=== PATIENT | male | born 1960 | race Caucasian/White ===

== ENCOUNTER 2016-06-12 16:05 | Inpatient (IN) | payer OTHER ==
[2016-06-12 17:24] VITALS: BMI 28.7
--- NOTE | 2016-06-12 20:03 | HP ---
CIWA Score - CIWA Score Nausea/Vomitin-Mild Nausea/No Vomiting Muscle Tremors: 4-Moderate,w/Arms Extend Anxiety: 4-Mod. Anxious/Guarded Agitation: 4-Moderately Restless Paroxysmal Sweats: 1-Minimal Palms Moist Orientation: 3-Disoriented Date>2 days Tacttile Disturbances: 0-None Auditory Disturbances: 0-None Visual Disturbances: 0-None Headache: 0-None Present CIWA-Ar Total Score: 17 Admission ROS S - HPI Chief Complaint: WITHDRAWAL SX Allergies/Adverse Reactions: Allergies Allergy/AdvReac Type Severity Reaction Status Date / Time No Known Allergies Allergy Verified 06/12/16 20:56 History of Present Illness: 56 YEARS OLD MALE WITH LONG HISTORY OF ALCOHOL NICOTINE DEPENDENCE, HAS HYPERTENSION, AMBULATE WITH CANE OWN SHOE FRO FALL AGE 5 AND BIPOLAR II IS ADMITTED TO DETOX Exam Limitations: No Limitations - Ebola screening Have you traveled outside of the country in the last 21 days: No Have you had contact with anyone from an Ebola affected area: No Have you been sick,other than usual withdrawal symptoms: No Do you have a fever: No - Review of Systems Constitutional: Chills, Changes in sleep, Weight Stable EENT: reports: No Symptoms Reported, Other (EYE GLASSES) Respiratory: reports: No Symptoms reported Cardiac: reports: No Symptoms Reported GI: reports: Nausea, Poor Fluid Intake, Abdominal cramping : reports: No Symptoms Reported Musculoskeletal: reports: Back Pain, Joint Pain (RIGHT HIP) Integumentary: reports: No Symptoms Reported Neuro: reports: Tremors Endocrine: reports: No Symptoms Reported Hematology: reports: No Symptoms Reported Psychiatric: reports: Judgement Intact Other Systems: Reviewed and Negative Patient History - Patient Medical History Hx Anemia: No Hx Asthma: No Hx Chronic Obstructive Pulmonary Disease (COPD): No Hx Cancer: No Hx Cardiac Disorders: No Hx Congestive Heart Failure: No Hx Hypertension: Yes (on meds.) Hx Hypercholesterolemia: No Hx Pacemaker: No HX Cerebrovascular Accident: No Hx Seizures: No Hx Dementia: No Hx Diabetes: No Hx Gastrointestinal Disorders: No Hx Liver Disease: Yes Hx Genitourinary Disorders: No Hx Sexually Transmitted Disorders: No Hx Renal Disease (ESRD): No Hx Thyroid Disease: No Hx Human Immunodeficiency Virus (HIV): No (negative a yr ago) Hx Hepatitis C: Yes (NEEDS TREATMENT) Hx Depression: No (not medcited at present ) Hx Suicide Attempt: No Hx Bipolar Disorder: Yes Hx Schizophrenia: No - Patient Surgical History Past Surgical History: Yes Hx Neurologic Surgery: No Hx Cataract Extraction: No Hx Cardiac Surgery: No Hx Lung Surgery: No Hx Breast Surgery: No Hx Breast Biopsy: No Hx Abdominal Surgery: No Hx Appendectomy: No Hx Cholecystectomy: No Hx Genitourinary Surgery: No Hx Orthopedic Surgery: Yes (right hip at age 5/left knee at age 7) Other Surgical History: cyst removed from right knee at age 16 Anesthesia Reaction: No - PPD History Previous Implant?: Yes Documented Results: Negative w/proof Implanted On Prior [facility] Admission?: Yes Date: 10/04/14 Results: 0 MM PPD to be Administered?: Yes - Smoking Cessation Smoking history: Current every day smoker Have you smoked in the past 12 months: Yes Aproximately how many cigarettes per day: 6 Cigars Per Day: 0 Hx Chewing Tobacco Use: No Initiated information on smoking cessation: Yes 'Breaking Loose' booklet given: 06/12/16 - Substance & Tx. History Hx Alcohol Use: Yes Hx Substance Use: Yes Substance Use Type: Alcohol, Heroin Hx Substance Use Treatment: Yes - Substances Abused Alcohol Route: Oral Frequency: Daily Amount used: 40OZX3 BEER Age of first use: 24 Date of Last Use: 06/12/16 Family Disease History - Family Disease History Family Disease History: Other: Father (COCAINE AND ALCOHOL), Mother (ALCOHOL) Admission Physical Exam [facility] - Vital Signs Vital Signs: Vital Signs - 24 hr 06/12/16 17:22 Temperature 98.1 F Pulse Rate 79 Respiratory 20 Rate Blood Pressure 142/86 - Physical General Appearance: Yes: Nourished, Appropriately Dressed, Mild Distress, Alcohol on Breath, Tremorous, Irritable, Sweating, Anxious HEENTM: Yes: Hearing grossly Normal, Normal ENT Inspection, Normocephalic, Normal Voice Respiratory: Yes: Chest Non-Tender, Lungs Clear, Normal Breath Sounds, No Respiratory Distress, No Accessory Muscle Use Neck: Yes: Supple, Trachea in good position Breast: Yes: Breasts Symetrical Cardiology: Yes: Regular Rhythm, Regular Rate, S1, S2 Abdominal: Yes: Non Tender, Soft Genitourinary: Yes: Within Normal Limits Back: Yes: Normal Inspection Musculoskeletal: Yes: Gait Steady (CANE), Back pain, Muscle Pain (RIGHT HIP) Extremities: Yes: Normal Range of Motion, Non-Tender, Tremors Neurological: Yes: Alert, Normal Response, Depressed Affect Integumentary: Yes: Warm, Clammy Lymphatic: Yes: Within Normal Limits - Diagnostic (1) Alcohol dependence with withdrawal, uncomplicated Current Visit: Yes Status: Acute (2) Essential hypertension Current Visit: Yes Status: Acute (3) Hepatitis C Current Visit: Yes Status: Chronic Qualifiers: Viral hepatitis chronicity: chronic Hepatic coma status: without hepatic coma Qualified Code(s): B18.2 - Chronic viral hepatitis C Comment: SCHEDULED FOR TREATMENT (4) Nicotine dependence Current Visit: Yes Status: Acute Qualifiers: Nicotine product type: cigarettes Substance use status: in withdrawal Qualified Code(s): F17.213 - Nicotine dependence, cigarettes, with withdrawal (5) Umbilical hernia Current Visit: Yes Status: Chronic Comment: SCHEDULED FOR SURGICAL REPAIR (6) Bipolar II disorder Current Visit: Yes Status: Acute (7) Use of cane as ambulatory aid Current Visit: Yes Status: Chronic Comment: RIGHT HIP INJURY (8) Methadone maintenance therapy patient Current Visit: Yes Status: Acute Comment: 20 MG VERIFICATION PENDING Cleared for Admission [facility] - Detox or Rehab [facility] Level of Care: Medically Managed Detox Regimen/Protocol: Librium [facility] Breath Alcohol Content Breath Alcohol Content: 0.088 Urine Drug Screen - Results Drug Screen Negative: No Urine Drug Screen Results: BZO-Benzodiazepines, MTD-Methadone
[2016-06-12] MEDS ORDERED: LOPERAMIDE HCL 2 MG CAPSULE PO PRN (20:07)
[2016-06-12] MEDS ORDERED: MAGNESIUM HYDROX 2400MG/30ML ORAL SUSPENSION 30 ML CUP PO PRN (20:07)
[2016-06-12] MEDS ORDERED: MAGNESIUM CITRATE 300 ML BOTTLE PO PRN (20:07)
[2016-06-12] MEDS ORDERED: MENTHOL/PHENOL 1 EACH UD MM PRN (20:07)
[2016-06-12] MEDS ORDERED: chlordiazePOXIDE HCL 25 MG CAPSULE PO PRN (20:07)
[2016-06-12] MEDS ORDERED: guaiFENesin/D-METHORPHAN HB 10 ML UNIT-DOSE CUPS PO PRN (20:07)
[2016-06-12] MEDS ORDERED: MAG HYDROX/AL HYDROX/SIMETH 30 ML UNIT-DOSE CUP PO PRN (20:07)
[2016-06-12] MEDS ORDERED: P-EPHED 60MG/TRIPROLIDI 2.5MG TABLET PO PRN (20:07)
[2016-06-12] MEDS ORDERED: NICOTINE POLACRILEX 2 MG GUM BUC PRN (20:07)
[2016-06-12 22:28] LABS: URINE APPEARANCE CLEAR; URINE BILIRUBIN NEGATIVE (NEGATIVE); URINE BLOOD NEGATIVE (NEGATIVE); URINE COLOR YELLOW; URINE GLUCOSE (UA) NEGATIVE (NEGATIVE); URINE KETONE NEGATIVE (NEGATIVE); URINE LEUK ESTERASE NEGATIVE (NEGATIVE); URINE NITRITE NEGATIVE (NEGATIVE); URINE PROTEIN NEGATIVE (NEGATIVE); URINE UROBILINOGEN 2.0 E.U/dl E.U./dl (0.2-1.0)
[2016-06-12] MEDS: THIAMINE HCL 100 MG TABLET (FP) PO SCH (22:48)
[2016-06-12] MEDS: chlordiazePOXIDE HCL 25 MG CAPSULE PO SCH (22:48)
[2016-06-12] MEDS: diphenhydrAMINE HCL 50 MG CAPSULE PO PRN (22:49)
[2016-06-13] MEDS: chlordiazePOXIDE HCL 25 MG CAPSULE PO SCH ×4 (06:17→22:55)
[2016-06-13] MEDS ORDERED: METHADONE HCL 10 MG TABLET PO ONE (08:38)
[2016-06-13 10:00] LABS: MCH 32.8 pg (25.7-33.7); MCHC 33.8 g/dl (32.0-35.9); MEAN CELL VOLUME 96.8 fl (80-96); RDW 15.1 % (11.9-15.9)
[2016-06-13 10:09] LABS: PLATELET COUNT 23 K/MM3 (134-434); WHITE BLOOD COUNT 1.8 K/mm3 (4.0-10.0)
[2016-06-13 10:16] LABS: ALBUMIN 2.5 g/dl (3.4-5.0); ANION GAP 7 (8-16); BILIRUBIN,TOTAL 1.8 mg/dL (0.2-1.0); CALCIUM 7.9 mg/dL (8.5-10.1); CO2 28 mmol/L (21-32); GLUCOSE,RANDOM 106 mg/dL (74-106); SGOT/AST 81 U/L (15-37); SGPT/ALT 63 U/L (12-78); TOT PROT 5.5 g/dl (6.4-8.2)
[2016-06-13 10:18] LABS: ALK PHOS 119 U/L (45-117); COCKROFT - GAULT 132.96; CREATININE 0.7 mg/dL (0.7-1.3)
[2016-06-13] MEDS: ASPIRIN 81 MG CHEWABLE TABLETS PO SCH (10:49)
[2016-06-13] MEDS: HYDROCHLOROTHIAZIDE 25 MG TABLET (FP) PO SCH (10:49)
[2016-06-13] MEDS: PRENATAL VITAMINS W/ FOLIC ACID TABLET (FP) PO SCH (10:49)
[2016-06-13] MEDS: NICOTINE 14 MG/24 HOURS TOPICAL PATCH TD SCH (10:50)
[2016-06-13] MEDS: PROPRANOLOL HCL 20 MG TABLET PO SCH (10:50)
--- NOTE | 2016-06-13 11:25 | PN ---
[facility] CIWA - CIWA Score Nausea/Vomitin Muscle Tremors: 3 Anxiety: 3 Agitation: 2 Paroxysmal Sweats: 1-Minimal Palms Moist Orientation: 0-Oriented Tacttile Disturbances: 1-Very Mild Itch/Numbness Auditory Disturbances: 1-Very Mild Visual Disturbances: 1-Very Mild Sensitivity Headache: 2-Mild CIWA-Ar Total Score: 17 BHS Progress Note (SOAP) Subjective: ALERT,IRRITABLE,ANXIOUS,INTERRUPTED SLEEP,TREMOR Objective: 06/13/16 11:20 Vital Signs Temperature 97.7 F 06/13/16 09:54 Pulse Rate 109 H 06/13/16 09:54 Respiratory Rate 16 06/13/16 09:54 Blood Pressure 159/84 06/13/16 09:54 O2 Sat by Pulse Oximetry (%) EKG NSR,NORMAL ECG Laboratory Last Values WBC 1.8 K/mm3 (4.0-10.0) L* D 06/13/16 07:00 RBC 3.59 M/mm3 (4.00-5.60) L 06/13/16 07:00 Hgb 11.8 GM/dL (11.7-16.9) 06/13/16 07:00 Hct 34.8 % (35.4-49) L 06/13/16 07:00 MCV 96.8 fl (80-96) H 06/13/16 07:00 MCHC 33.8 g/dl (32.0-35.9) 06/13/16 07:00 RDW 15.1 % (11.9-15.9) 06/13/16 07:00 Plt Count 23 K/MM3 (134-434) L* D 06/13/16 07:00 MPV 10.0 fl (7.5-11.1) D 06/13/16 07:00 Sodium 145 mmol/L (136-145) 06/13/16 07:00 Potassium 3.7 mmol/L (3.5-5.1) 06/13/16 07:00 Chloride 110 mmol/L (98-107) H 06/13/16 07:00 Carbon Dioxide 28 mmol/L (21-32) 06/13/16 07:00 Anion Gap 7 (8-16) L 06/13/16 07:00 BUN 10 mg/dL (7-18) 06/13/16 07:00 Creatinine 0.7 mg/dL (0.7-1.3) 06/13/16 07:00 Creat Clearance w eGFR > 60 (>60) 06/13/16 07:00 Random Glucose 106 mg/dL (74-106) 06/13/16 07:00 Calcium 7.9 mg/dL (8.5-10.1) L 06/13/16 07:00 Total Bilirubin 1.8 mg/dL (0.2-1.0) H 06/13/16 07:00 AST 81 U/L (15-37) H 06/13/16 07:00 ALT 63 U/L (12-78) 06/13/16 07:00 Alkaline Phosphatase 119 U/L (45-117) H 06/13/16 07:00 Total Protein 5.5 g/dl (6.4-8.2) L 06/13/16 07:00 Albumin 2.5 g/dl (3.4-5.0) L 06/13/16 07:00 Urine Color Yellow 06/12/16 22:04 Urine Appearance Clear 06/12/16 22:04 Urine pH 5.0 (5.0-8.0) 06/12/16 22:04 Ur Specific [place] 1.008 (1.001-1.035) 06/12/16 22:04 Urine Protein Negative (NEGATIVE) 06/12/16 22:04 Urine Glucose (UA) Negative (NEGATIVE) 06/12/16 22:04 Urine Ketones Negative (NEGATIVE) 06/12/16 22:04 Urine Blood Negative (NEGATIVE) 06/12/16 22:04 Urine Nitrite Negative (NEGATIVE) 06/12/16 22:04 Urine Bilirubin Negative (NEGATIVE) 06/12/16 22:04 Urine Urobilinogen 2.0 e.u/dl E.U./dl (0.2-1.0) 06/12/16 22:04 Ur Leukocyte Esterase Negative (NEGATIVE) 06/12/16 22:04 Valproic Acid 7.921 ug/ml (50-100) L 06/13/16 07:00 Assessment: 06/13/16 11:25 WITHDRAWAL SYMPTOM Plan: CONTINUE DETOX,WBC IS 1,800,PLATELET COUNT IS 28K,LEUKOPENIA AND THROMBOCYTOPENIA REPEAT CBC,CMP,INR IN AM,D/C MOTRIN
--- NOTE | 2016-06-13 15:41 | CONSULT ---
[facility] Psychiatric Consult - Data Date of interview: 06/13/16 Admission source: [facility] Identifying data: First admission to [facility] for this 56 y/o male seeking detox teatment forhroin and alcohol dependence.Patient is single,a father of two,domiciled,unemployed (disabled) and supported on SSI benefits. Substance Abuse History: - Smoking Cessation. Smoking history: Current every day smoker. Have you smoked in the past 12 months: Yes. Aproximately how many cigarettes per day: 6. Cigars Per Day: 0. Hx Chewing Tobacco Use: No. Initiated information on smoking cessation: Yes. 'Breaking Loose' booklet given : 06/12/16. - Substance & Tx. History. Hx Alcohol Use: Yes. Hx Substance Use : Yes. Substance Use Type: Alcohol, Heroin. Hx Substance Use Treatment: Yes. - Substances Abused. Alcohol. Route: Oral. Frequency: Daily. Amount used : 40OZX3 BEER. Age of first use: 24. Date of Last Use: 06/12/16. Confirmed by the patient. Medical History: Thrombocytopenia (platelets = 23 on 06/13/16),leukopenia (WBC = 1.8 on 06/13/16),hepatitis C,hypertension,arthritis,hip pain,right inguinal hernia ,umbilical hernia and a distant history of orthosurgery (right hip at age [age]) and left knee (age [age]). Psychiatric History: No reported history of psychiatric hospitalizations.Diagnosed with Impulse Control Disorder.Used to be on risperdal and sertraline.Now prescribed depakote 250 mg po bid (pharmacy claims are reviewed).OPD care is received at the [facility] mental health clinic.Mr Conway is also on methadone maintenance (20 mg/day) at the [facility] in [facility].Patient denies history of suicide attempts. Physical/Sexual Abuse/Trauma History: Patient denies. Additional Comment: Urine Drug Screen Results: BZO-Benzodiazepines, MTD- Methadone.Noted. Mental Status Exam - Mental Status Exam Alert and Oriented to: Time, Place, Person Cognitive Function: Good Patient Appearance: Well Groomed (short stature) Mood: Nervous, Apprehensive, Hopeful Affect: Mood Congruent Patient Behavior: Fatigued, Appropriate, Cooperative Speech Pattern: Clear, Appropriate Voice Loudness: Normal Thought Process: Goal Oriented Thought Disorder: Not Present Hallucinations: Denies Suicidal Ideation: Denies Homicidal Ideation: Denies Insight/Judgement: Fair Sleep: Fair Appetite: Good Gait/Station: Other (walks with cane) Psychiatric Findings - Problem List ([place] 1, 2,3) (1) Alcohol dependence with withdrawal, uncomplicated Current Visit: Yes Status: Acute (2) Opioid dependence on agonist therapy Current Visit: Yes Status: Acute (3) Nicotine dependence Current Visit: Yes Status: Acute Qualifiers: Nicotine product type: cigarettes Substance use status: in withdrawal Qualified Code(s): F17.213 - Nicotine dependence, cigarettes, with withdrawal (4) Bipolar II disorder Current Visit: Yes Status: Chronic (5) Substance induced mood disorder Current Visit: Yes Status: Acute (6) Impulse control disorder Current Visit: Yes Status: Chronic (7) Essential hypertension Current Visit: Yes Status: Acute (8) Hepatitis C Current Visit: Yes Status: Chronic Qualifiers: Viral hepatitis chronicity: chronic Hepatic coma status: without hepatic coma Qualified Code(s): B18.2 - Chronic viral hepatitis C Comment: SCHEDULED FOR TREATMENT (9) Umbilical hernia Current Visit: Yes Status: Chronic Comment: SCHEDULED FOR SURGICAL REPAIR (10) Use of cane as ambulatory aid Current Visit: Yes Status: Chronic Comment: RIGHT HIP INJURY (11) Arthritis of both knees Current Visit: Yes Status: Chronic (12) Hip pain associated with recalled total hip arthroplasty hardware Current Visit: Yes Status: Chronic - Initial Treatment Plan Initial Treatment Plan: Psychoeducation.Detoxification.Depakote is on hold in view of severe thrombocytopenia.Explained to patient.Observation.
[2016-06-13] MEDS: THIAMINE HCL 100 MG TABLET (FP) PO SCH (22:55)
[2016-06-13] MEDS: risperiDONE 2 MG TABLET PO SCH (22:55)
[2016-06-13] MEDS: ACETAMINOPHEN 325 MG TABLET (FP) PO PRN (22:56)
[2016-06-14] MEDS: chlordiazePOXIDE HCL 25 MG CAPSULE PO SCH ×3 (06:19→17:59)
[2016-06-14] MEDS: METHADONE HCL 10 MG TABLET PO SCH (06:20)
[2016-06-14 10:11] LABS: MCH 32.7 pg (25.7-33.7); MCHC 33.4 g/dl (32.0-35.9)
[2016-06-14 10:24] LABS: INR 1.64 (0.82-1.09); PROTHROMBIN TIME (PATIENT) 18.2 SEC (9.98-11.88)
[2016-06-14 10:35] LABS: ALBUMIN 2.4 g/dl (3.4-5.0); ALK PHOS 113 U/L (45-117); ANION GAP 10 (8-16); BILIRUBIN,TOTAL 1.5 mg/dL (0.2-1.0); CALCIUM 7.7 mg/dL (8.5-10.1); CO2 26 mmol/L (21-32); COCKROFT - GAULT 132.96; CREATININE 0.7 mg/dL (0.7-1.3); GLUCOSE,RANDOM 113 mg/dL (74-106); SGOT/AST 55 U/L (15-37); SGPT/ALT 58 U/L (12-78); TOT PROT 5.4 g/dl (6.4-8.2)
[2016-06-14] MEDS: ASPIRIN 81 MG CHEWABLE TABLETS PO SCH (11:04)
[2016-06-14] MEDS: PRENATAL VITAMINS W/ FOLIC ACID TABLET (FP) PO SCH (11:04)
[2016-06-14] MEDS: SERTRALINE HCL 50 MG TABLET (FP) PO SCH (11:05)
[2016-06-14] MEDS: PROPRANOLOL HCL 20 MG TABLET PO SCH (11:05)
[2016-06-14] MEDS: HYDROCHLOROTHIAZIDE 25 MG TABLET (FP) PO SCH (11:05)
[2016-06-14] MEDS: NICOTINE 14 MG/24 HOURS TOPICAL PATCH TD SCH (11:06)
[2016-06-14 11:08] LABS: PLATELET COUNT 28 K/MM3 (134-434); WHITE BLOOD COUNT 1.8 K/mm3 (4.0-10.0)
--- NOTE | 2016-06-14 15:26 | PN ---
S CIWA - CIWA Score Nausea/Vomitin Muscle Tremors: 3 Anxiety: 4-Mod. Anxious/Guarded Agitation: 2 Paroxysmal Sweats: 2 Orientation: 4Disoriented Place/Person Tacttile Disturbances: 2-Mild Itch/Numbness/Burn Auditory Disturbances: 0-None Visual Disturbances: 0-None Headache: 3-Moderate CIWA-Ar Total Score: 23 BHS Progress Note (SOAP) Subjective: Body Aches, Back Ache, H/A, Nausea, Tremors. Objective: PT. A & O X 1 (DISORIENTED ABOUT DAY/DATE AND ABOUT LOCATION). PT. OBSERVED AMBULATING ON UNIT. 06/14/16 15:28 Vital Signs Temperature 97.1 F L 06/14/16 10:00 Pulse Rate 75 06/14/16 10:00 Respiratory Rate 19 06/14/16 10:00 Blood Pressure 115/68 06/14/16 10:00 O2 Sat by Pulse Oximetry (%) Laboratory Last Values WBC 1.8 K/mm3 (4.0-10.0) L* 06/14/16 08:00 RBC 3.47 M/mm3 (4.00-5.60) L 06/14/16 08:00 Hgb 11.3 GM/dL (11.7-16.9) L 06/14/16 08:00 Hct 33.9 % (35.4-49) L 06/14/16 08:00 MCV 98.0 fl (80-96) H 06/14/16 08:00 MCHC 33.4 g/dl (32.0-35.9) 06/14/16 08:00 RDW 15.0 % (11.9-15.9) 06/14/16 08:00 Plt Count 28 K/MM3 (134-434) L* D 06/14/16 08:00 MPV 10.0 fl (7.5-11.1) 06/14/16 08:00 INR 1.64 (0.82-1.09) H 06/14/16 08:00 Sodium 142 mmol/L (136-145) 06/14/16 08:00 Potassium 3.7 mmol/L (3.5-5.1) 06/14/16 08:00 Chloride 106 mmol/L (98-107) 06/14/16 08:00 Carbon Dioxide 26 mmol/L (21-32) 06/14/16 08:00 Anion Gap 10 (8-16) 06/14/16 08:00 BUN 15 mg/dL (7-18) D 06/14/16 08:00 Creatinine 0.7 mg/dL (0.7-1.3) 06/14/16 08:00 Creat Clearance w eGFR > 60 (>60) 06/14/16 08:00 Random Glucose 113 mg/dL (74-106) H 06/14/16 08:00 Calcium 7.7 mg/dL (8.5-10.1) L 06/14/16 08:00 Total Bilirubin 1.5 mg/dL (0.2-1.0) H 06/14/16 08:00 AST 55 U/L (15-37) H D 06/14/16 08:00 ALT 58 U/L (12-78) 06/14/16 08:00 Alkaline Phosphatase 113 U/L (45-117) 06/14/16 08:00 Total Protein 5.4 g/dl (6.4-8.2) L 06/14/16 08:00 Albumin 2.4 g/dl (3.4-5.0) L 06/14/16 08:00 Urine Color Yellow 06/12/16 22:04 Urine Appearance Clear 06/12/16 22:04 Urine pH 5.0 (5.0-8.0) 06/12/16 22:04 Ur Specific [place] 1.008 (1.001-1.035) 06/12/16 22:04 Urine Protein Negative (NEGATIVE) 06/12/16 22:04 Urine Glucose (UA) Negative (NEGATIVE) 06/12/16 22:04 Urine Ketones Negative (NEGATIVE) 06/12/16 22:04 Urine Blood Negative (NEGATIVE) 06/12/16 22:04 Urine Nitrite Negative (NEGATIVE) 06/12/16 22:04 Urine Bilirubin Negative (NEGATIVE) 06/12/16 22:04 Urine Urobilinogen 2.0 e.u/dl E.U./dl (0.2-1.0) 06/12/16 22:04 Ur Leukocyte Esterase Negative (NEGATIVE) 06/12/16 22:04 Valproic Acid 7.921 ug/ml (50-100) L 06/13/16 07:00 RPR Titer Nonreactive (NONREACTIVE) 06/13/16 07:00 LABS NOTED. PATIENT REPORTS HISTORY OF LOW WBC COUNT AND HISTORY OF EASILY BRUISING, FOR WHICH HE WAS IN THE PROCESS OF PURSUING FURTHER MEDICAL EVALUATION PRIOR TO ADMISSION TO DETOX. PT. DENIES ANY CURRENT BRUISING OR UNUSUAL BLEEDING. NO SIGNS OF INFECTION NOTED. PATIENT NOTES THAT HE WILL FOLLOW-UP WITH MEDICAL PROVIDER FOR FURTHER EVALUATION AFTER DISCHARGE FROM DETOX. 06/14/16 15:33 Assessment: 06/14/16 15:31 WITHDRAWAL SYMPTOMS. Plan: CONTINUE DETOX. ADVISED PATIENT TO FOLLOW-UP WITH INCIDENT ENGINEER FOR GENERAL MEDICAL ASSESSMENT AND FOR ABNORMAL ADMISSION LAB VALUES AFTER DISCHARGE FROM DETOX. PATIENT VERBALIZED UNDERSTANDING OF INSTRUCTIONS / RECOMMENDATIONS.
--- NOTE | 2016-06-14 16:17 | EKG ---
Test Reason : Blood Pressure : / mmHG Vent. Rate : 078 BPM Atrial Rate : 078 BPM P-R Int : 112 ms QRS Dur : 082 ms QT Int : 390 ms P-R-T Axes : -24 037 022 degrees QTc Int : 444 ms NORMAL SINUS RHYTHM NORMAL ECG NO PREVIOUS ECGS AVAILABLE Confirmed by SHANTANU GATES MD ([id number]) on 06/14/2016 4:17:22 PM Referred By: Confirmed By:SHANTANU GATES MD
[2016-06-14] MEDS: THIAMINE HCL 100 MG TABLET (FP) PO SCH (23:25)
[2016-06-14] MEDS: risperiDONE 2 MG TABLET PO SCH (23:25)
[2016-06-14] MEDS: TOLNAFTATE 1% CREAM 15 GM TUBE TP SCH (23:25)
[2016-06-14] MEDS: chlordiazePOXIDE 5 MG CAPSULE PO SCH (23:26)
[2016-06-15] MEDS: METHADONE HCL 10 MG TABLET PO SCH (06:23)
[2016-06-15] MEDS: chlordiazePOXIDE 5 MG CAPSULE PO SCH ×3 (06:23→17:57)
[2016-06-15] MEDS: ACETAMINOPHEN 325 MG TABLET (FP) PO PRN ×3 (07:44→17:57)
[2016-06-15] MEDS: PRENATAL VITAMINS W/ FOLIC ACID TABLET (FP) PO SCH (11:24)
[2016-06-15] MEDS: SERTRALINE HCL 50 MG TABLET (FP) PO SCH (11:24)
[2016-06-15] MEDS: HYDROCHLOROTHIAZIDE 25 MG TABLET (FP) PO SCH (11:24)
[2016-06-15] MEDS: ASPIRIN 81 MG CHEWABLE TABLETS PO SCH (11:24)
[2016-06-15] MEDS: TOLNAFTATE 1% CREAM 15 GM TUBE TP SCH ×2 (11:24→22:49)
[2016-06-15] MEDS: NICOTINE 14 MG/24 HOURS TOPICAL PATCH TD SCH (11:25)
[2016-06-15] MEDS: PROPRANOLOL HCL 20 MG TABLET PO SCH (11:25)
--- NOTE | 2016-06-15 15:26 | PN ---
BHS Progress Note (SOAP) Subjective: Sweating, anxious, interrupted sleep Objective: 06/15/16 15:23 Last Vital Signs Temp Pulse Resp BP Pulse Ox 97.0 F L 99 H 20 122/54 06/15/16 13:58 06/15/16 13:58 06/15/16 13:58 06/15/16 13:58 Laboratory Tests 06/12/16 06/13/16 06/13/16 22:04 07:00 07:00 WBC 1.8 L* D RBC 3.59 L Hgb 11.8 Hct 34.8 L MCV 96.8 H MCHC 33.8 RDW 15.1 Plt Count 23 L* D MPV 10.0 D INR Sodium 145 Potassium 3.7 Chloride 110 H Carbon Dioxide 28 Anion Gap 7 L BUN 10 Creatinine 0.7 Creat Clearance w eGFR > 60 Random Glucose 106 Calcium 7.9 L Total Bilirubin 1.8 H AST 81 H ALT 63 Alkaline Phosphatase 119 H Total Protein 5.5 L Albumin 2.5 L Urine Color Yellow Urine Appearance Clear Urine pH 5.0 Ur Specific [place] 1.008 Urine Protein Negative Urine Glucose (UA) Negative Urine Ketones Negative Urine Blood Negative Urine Nitrite Negative Urine Bilirubin Negative Urine Urobilinogen 2.0 e.u/dl Ur Leukocyte Esterase Negative Valproic Acid RPR Titer 06/13/16 06/13/16 06/14/16 07:00 07:00 08:00 WBC 1.8 L* RBC 3.47 L Hgb 11.3 L Hct 33.9 L MCV 98.0 H MCHC 33.4 RDW 15.0 Plt Count 28 L* D MPV 10.0 INR Sodium Potassium Chloride Carbon Dioxide Anion Gap BUN Creatinine Creat Clearance w eGFR Random Glucose Calcium Total Bilirubin AST ALT Alkaline Phosphatase Total Protein Albumin Urine Color Urine Appearance Urine pH Ur Specific [place] Urine Protein Urine Glucose (UA) Urine Ketones Urine Blood Urine Nitrite Urine Bilirubin Urine Urobilinogen Ur Leukocyte Esterase Valproic Acid 7.921 L RPR Titer Nonreactive 06/14/16 06/14/16 08:00 08:00 WBC RBC Hgb Hct MCV MCHC RDW Plt Count MPV INR 1.64 H Sodium 142 Potassium 3.7 Chloride 106 Carbon Dioxide 26 Anion Gap 10 BUN 15 D Creatinine 0.7 Creat Clearance w eGFR > 60 Random Glucose 113 H Calcium 7.7 L Total Bilirubin 1.5 H AST 55 H D ALT 58 Alkaline Phosphatase 113 Total Protein 5.4 L Albumin 2.4 L Urine Color Urine Appearance Urine pH Ur Specific [place] Urine Protein Urine Glucose (UA) Urine Ketones Urine Blood Urine Nitrite Urine Bilirubin Urine Urobilinogen Ur Leukocyte Esterase Valproic Acid RPR Titer Labs noted: pancytopenia Assessment: 06/15/16 15:24 Withdrawal symptoms Noted with pancytopenia Plan: Continue detox Pancytopenia most likely secondary to hepatitis C: monitor for bruising/bleeding , follow up with PCP post discharge
[2016-06-15] MEDS: chlordiazePOXIDE HCL 10 MG CAPSULE PO SCH (22:49)
[2016-06-15] MEDS: risperiDONE 2 MG TABLET PO SCH (22:49)
[2016-06-15] MEDS: THIAMINE HCL 100 MG TABLET (FP) PO SCH (22:49)
[2016-06-15] MEDS: diphenhydrAMINE HCL 50 MG CAPSULE PO PRN (22:52)
[2016-06-16] MEDS: chlordiazePOXIDE HCL 10 MG CAPSULE PO SCH ×2 (05:30→10:25)
[2016-06-16] MEDS: METHADONE HCL 10 MG TABLET PO SCH (05:30)
--- NOTE | 2016-06-16 09:36 | PN ---
S Progress Note (SOAP) Subjective: ALERT,NO COMPLAINT Objective: 06/16/16 09:34 Vital Signs Temperature 97.4 F L 06/16/16 06:48 Pulse Rate 94 H 06/16/16 06:48 Respiratory Rate 20 06/16/16 06:48 Blood Pressure 111/60 06/16/16 06:48 O2 Sat by Pulse Oximetry (%) Assessment: 06/16/16 09:34 DETOX COMPLETED,NO WITHDRAWAL SYMPTOM Plan: DISCHARGE TODAY,FOLLOW UP WITH AFTER CARE PROGRAM ARRANGEMENT AND PMD FOR MEDICAL PROBLEM LOW WBC,LOW PLATELET,HEPATITIS C
--- NOTE | 2016-06-16 09:38 | DS ---
[facility] Detox Discharge Summary Admission Date: 06/12/16 Discharge Date: 06/16/16 - History Present History: Alcohol Dependence Additional Comments: FOLLOW UP WITH AFTER CARE PROGRAM ARRANGEMENT AND PMD FOR MEDICAL PROBLEM, LEUKOPENIA, THROMBOCYTOPENIA,AND HEPATITIS C Pertinent Past History: ESSENTIAL HYPERTENSION HEPATITIS C NICOTINE DEPENDENCE UMBILICAL HERNIA BIPOLAR 2 DISORDER MMTP LEUKOPENIA THROMBOCYTOPENIA CANE AMBULATORY AID - Physical Exam Results Vital Signs: Vital Signs Temperature 97.4 F L 06/16/16 06:48 Pulse Rate 94 H 06/16/16 06:48 Respiratory Rate 20 06/16/16 06:48 Blood Pressure 111/60 06/16/16 06:48 O2 Sat by Pulse Oximetry (%) Pertinent Admission Physical Exam Findings: WITHDRAWAL SYMPTOM - Treatment Hospital Course: Detox Protocol Followed, Detoxed Safely, Responded well, Discharged Condition Good, Rehab Referral Accepted Patient has Accepted a Rehab Referral to: [facility] - Medication Discharge Medications: Ambulatory Orders Hydrochlorothiazide [Hctz] 25 mg PO DAILY 09/11/11 Aspirin [ASA -] 81 mg PO DAILY 12/18/14 Baclofen 10 mg PO DAILY 12/18/14 Folic Acid - 1 mg PO DAILY 12/18/14 Multivitamins [Tab-A-Vit -] 1 tab PO DAILY 12/18/14 Propranolol HCl [Inderal] 20 mg PO DAILY 12/18/14 Risperidone [Risperdal] 2 mg PO HS 12/18/14 Sertraline HCl [Zoloft -] 50 mg PO DAILY #30 tablet 12/19/14 Ibuprofen [Motrin -] 600 mg PO DAILY 02/08/15 - Diagnosis (1) Alcohol dependence with withdrawal, uncomplicated Current Visit: Yes Status: Acute (2) Essential hypertension Current Visit: Yes Status: Acute (3) Methadone maintenance therapy patient Current Visit: Yes Status: Acute (4) Nicotine dependence Current Visit: Yes Status: Acute Qualifiers: Nicotine product type: cigarettes Substance use status: in withdrawal Qualified Code(s): F17.213 - Nicotine dependence, cigarettes, with withdrawal (5) Opioid dependence on agonist therapy Current Visit: Yes Status: Acute (6) Arthritis of both knees Current Visit: Yes Status: Chronic (7) Bipolar II disorder Current Visit: Yes Status: Chronic (8) Hepatitis C Current Visit: Yes Status: Chronic Qualifiers: Viral hepatitis chronicity: chronic Hepatic coma status: without hepatic coma Qualified Code(s): B18.2 - Chronic viral hepatitis C (9) Use of cane as ambulatory aid Current Visit: Yes Status: Chronic (10) Leukopenia Current Visit: Yes Status: Acute (11) Thrombocytopenia Current Visit: Yes Status: Acute - AMA Did Patient Leave Against Medical Advice: No
[2016-06-16 09:46] VITALS: BP 144/82; PULSE 116; TEMP 96.8
[2016-06-16] MEDS: SERTRALINE HCL 50 MG TABLET (FP) PO SCH (10:22)
[2016-06-16] MEDS: TOLNAFTATE 1% CREAM 15 GM TUBE TP SCH (10:22)
[2016-06-16] MEDS: ASPIRIN 81 MG CHEWABLE TABLETS PO SCH (10:22)
[2016-06-16] MEDS: PRENATAL VITAMINS W/ FOLIC ACID TABLET (FP) PO SCH (10:22)
[2016-06-16] MEDS: NICOTINE 14 MG/24 HOURS TOPICAL PATCH TD SCH (10:23)
[2016-06-16] MEDS: PROPRANOLOL HCL 20 MG TABLET PO SCH (10:23)
[2016-06-16] MEDS: HYDROCHLOROTHIAZIDE 25 MG TABLET (FP) PO SCH (12:34)
== END 2016-06-16 12:49 | disposition other institution (70) | DRG 773 ==
LOC: YASAS 16:05 → Y6N 19:19
PROVIDERS: ADMIT Internal Medicine Addiction Medicine; ATTEND Internal Medicine Addiction Medicine
PROC: HZ2ZZZZ Detoxification Services for Substance Abuse Treatment (ICD-10-PCS; principal; 2016-06-16)
DX: F11.20 Opioid dependence, uncomplicated (principal); F10.20 Alcohol dependence, uncomplicated; F17.210 Nicotine dependence, cigarettes, uncomplicated; F31.81 Bipolar II disorder; F19.24 Other psychoactive substance dependence with psychoactive substance-induced mood disorder; I10 Essential (primary) hypertension; M13.862 Other specified arthritis, left knee; M13.861 Other specified arthritis, right knee; B18.2 Chronic viral hepatitis C; D69.6 Thrombocytopenia, unspecified; R26.2 Difficulty in walking, not elsewhere classified; F63.9 Impulse disorder, unspecified
CPT/HCPCS: 36415; 80053; 80164; 81003; 85027; 85610; 86593; 93005; 93010

== ENCOUNTER 2016-06-16 13:03 | Inpatient (IN) | payer OTHER ==
[2016-06-16] MEDS ORDERED: MAGNESIUM HYDROX 2400MG/30ML ORAL SUSPENSION 30 ML CUP PO PRN ×2 (13:35)
[2016-06-16] MEDS ORDERED: P-EPHED 60MG/TRIPROLIDI 2.5MG TABLET PO PRN ×2 (13:35)
[2016-06-16] MEDS ORDERED: MENTHOL/PHENOL 1 EACH UD MM PRN (13:35)
[2016-06-16] MEDS ORDERED: LOPERAMIDE HCL 2 MG CAPSULE PO PRN ×2 (13:35)
[2016-06-16] MEDS ORDERED: MAGNESIUM CITRATE 300 ML BOTTLE PO PRN ×2 (13:35)
[2016-06-16] MEDS ORDERED: NICOTINE POLACRILEX 4 MG GUM BC PRN (13:35)
[2016-06-16] MEDS ORDERED: MAG HYDROX/AL HYDROX/SIMETH 30 ML UNIT-DOSE CUP PO PRN ×2 (13:35)
[2016-06-16] MEDS ORDERED: ACETAMINOPHEN 325 MG TABLET (FP) PO PRN ×2 (13:35)
[2016-06-16] MEDS ORDERED: guaiFENesin/D-METHORPHAN HB 10 ML UNIT-DOSE CUPS PO PRN (13:35)
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
--- NOTE | 2016-06-16 16:11 | HP ---
[facility] Rehab Assess/Revision - Admission History Admitted to Rehab from: [facility] Date of Admission to Rehab: 06/16/16 - Vital signs Vital Signs: Vital Signs Period Temp Pulse Resp BP Sys/Gutierrez Pulse Ox Last 24 Hr 98 F 84 18 111/66 - Findings Detox History & Physical reviewed: Yes Concur with findings: Yes Comments/Additional Findings: transferred from detox to rehab admission as per protocol
[2016-06-16] MEDS: RANITIDINE HCL 150 MG TABLET (FP) PO SCH (21:24)
[2016-06-16] MEDS: THIAMINE HCL 100 MG TABLET (FP) PO SCH (21:24)
[2016-06-16] MEDS: diphenhydrAMINE HCL 50 MG CAPSULE PO PRN (21:24)
[2016-06-16] MEDS: risperiDONE 1 MG TABLET (FP) PO SCH (21:24)
[2016-06-16] MEDS ORDERED: THIAMINE HCL 100 MG TABLET (FP) PO SCH (22:00)
[2016-06-17] MEDS: METHADONE HCL 10 MG TABLET PO SCH (06:28)
[2016-06-17] MEDS: IBUPROFEN 400 MG TABLET (FP) PO PRN ×2 (07:36→21:24)
[2016-06-17] MEDS: PROPRANOLOL HCL 20 MG TABLET PO SCH (09:37)
[2016-06-17] MEDS: RANITIDINE HCL 150 MG TABLET (FP) PO SCH ×2 (09:37→21:24)
[2016-06-17] MEDS: SERTRALINE HCL 50 MG TABLET (FP) PO SCH (09:37)
[2016-06-17] MEDS: PRENATAL VITAMINS W/ FOLIC ACID TABLET (FP) PO SCH (09:37)
[2016-06-17] MEDS: HYDROCHLOROTHIAZIDE 25 MG TABLET (FP) PO SCH (09:37)
[2016-06-17] MEDS: NICOTINE 14 MG/24 HOURS TOPICAL PATCH TD SCH (09:38)
[2016-06-17] MEDS ORDERED: BACLOFEN 10 MG TABLET (FP) PO SCH (10:00)
[2016-06-17] MEDS ORDERED: ASPIRIN 81 MG CHEWABLE TABLETS PO SCH (10:00)
[2016-06-17] MEDS ORDERED: PRENATAL VITAMINS W/ FOLIC ACID TABLET (FP) PO SCH (10:00)
[2016-06-17] MEDS: THIAMINE HCL 100 MG TABLET (FP) PO SCH (21:24)
[2016-06-17] MEDS: risperiDONE 1 MG TABLET (FP) PO SCH (21:24)
[2016-06-17] MEDS: diphenhydrAMINE HCL 50 MG CAPSULE PO PRN (21:25)
[2016-06-18] MEDS: METHADONE HCL 10 MG TABLET PO SCH (06:48)
[2016-06-18] MEDS: IBUPROFEN 400 MG TABLET (FP) PO PRN ×2 (06:51→15:13)
[2016-06-18] MEDS: SERTRALINE HCL 50 MG TABLET (FP) PO SCH (09:53)
[2016-06-18] MEDS: RANITIDINE HCL 150 MG TABLET (FP) PO SCH ×2 (09:53→21:20)
[2016-06-18] MEDS: PROPRANOLOL HCL 20 MG TABLET PO SCH (09:53)
[2016-06-18] MEDS: HYDROCHLOROTHIAZIDE 25 MG TABLET (FP) PO SCH (09:53)
[2016-06-18] MEDS: PRENATAL VITAMINS W/ FOLIC ACID TABLET (FP) PO SCH (09:53)
[2016-06-18] MEDS: NICOTINE 14 MG/24 HOURS TOPICAL PATCH TD SCH (09:58)
[2016-06-18] MEDS: THIAMINE HCL 100 MG TABLET (FP) PO SCH (21:20)
[2016-06-18] MEDS: risperiDONE 1 MG TABLET (FP) PO SCH (21:20)
[2016-06-18] MEDS: diphenhydrAMINE HCL 50 MG CAPSULE PO PRN (21:21)
[2016-06-19] MEDS: METHADONE HCL 10 MG TABLET PO SCH (06:45)
[2016-06-19] MEDS: IBUPROFEN 400 MG TABLET (FP) PO PRN ×2 (06:46→21:45)
[2016-06-19] MEDS: HYDROCHLOROTHIAZIDE 25 MG TABLET (FP) PO SCH (10:49)
[2016-06-19] MEDS: PRENATAL VITAMINS W/ FOLIC ACID TABLET (FP) PO SCH (10:49)
[2016-06-19] MEDS: RANITIDINE HCL 150 MG TABLET (FP) PO SCH ×2 (10:49→21:44)
[2016-06-19] MEDS: PROPRANOLOL HCL 20 MG TABLET PO SCH (10:49)
[2016-06-19] MEDS: SERTRALINE HCL 50 MG TABLET (FP) PO SCH (10:50)
[2016-06-19] MEDS: NICOTINE 14 MG/24 HOURS TOPICAL PATCH TD SCH (10:53)
--- NOTE | 2016-06-19 13:34 | PN ---
BHS Progress Note (SOAP) Subjective: c/o david knee, rt hip , hernia pains , and diarrhea Objective: 06/19/16 13:34 Vital Signs Temperature 98.9 F 06/19/16 06:50 Pulse Rate 97 H 06/19/16 06:50 Respiratory Rate 20 06/19/16 06:50 Blood Pressure 141/66 06/19/16 06:50 O2 Sat by Pulse Oximetry (%) Laboratory Tests 06/19/16 10:09 HCV RNA PCR log coper hand/ml Cancelled HCV RNA (PCR) IUs/ml Cancelled HCV RNA log copies/mL Cancelled pt alert ox1 -not sure of date , thoght he was in [facility] lungs wheezes david cor rrr, abd + umbilical hernia , rlq hernia ext leg lenght discrepancy , rt > lt neuo ? flap imp Assessment: 06/19/16 13:39 etoh/hep c liver disease pancytopenia change in ms-possible encephalopathy multiple hernias orthopedic deformities Plan: cbc comp. metabolic inr ammonia level hydration cont. to ms mental status f/up labs if ammonia elevated start lactulose
--- NOTE | 2016-06-19 13:49 | PN ---
ERNESTO Progress Note Note: patient was observed by medical staff being sleepy during daily activities, recommended to put on hold Zoloft and Risperdal till will get the blood result for ammonia level.
[2016-06-19 15:01] LABS: MCH 32.9 pg (25.7-33.7); MCHC 33.7 g/dl (32.0-35.9); MEAN CELL VOLUME 97.9 fl (80-96); MEAN PLT VOLUME 10.4 fl (7.5-11.1); RDW 14.7 % (11.9-15.9); WHITE BLOOD COUNT 2.7 K/mm3 (4.0-10.0)
[2016-06-19 15:11] LABS: ALBUMIN 2.5 g/dl (3.4-5.0); ALK PHOS 99 U/L (45-117); ANION GAP 8 (8-16); BILIRUBIN,TOTAL 1.2 mg/dL (0.2-1.0); CO2 27 mmol/L (21-32); COCKROFT - GAULT 0; CREATININE 0.8 mg/dL (0.7-1.3); GLUCOSE,RANDOM 117 mg/dL (74-106); SGOT/AST 34 U/L (15-37); SGPT/ALT 33 U/L (12-78); TOT PROT 5.7 g/dl (6.4-8.2)
[2016-06-19 15:27] LABS: INR 1.5 (0.82-1.09); PROTHROMBIN TIME (PATIENT) 16.6 SEC (9.98-11.88)
[2016-06-19 15:40] LABS: PLATELET COUNT 34 K/MM3 (134-434)
[2016-06-19] MEDS ORDERED: LACTULOSE 20 GM/30 ML UDC (FOR ORAL USE ONLY) PO PRN (15:52)
[2016-06-19] MEDS ORDERED: LACTULOSE 20 GM/30 ML UDC (FOR ORAL USE ONLY) PO ONE (16:30)
[2016-06-19 17:37] LABS: PLATELET ESTIMATE DECREASED (NORMAL)
[2016-06-19] MEDS: LACTULOSE 20 GM/30 ML UDC (FOR ORAL USE ONLY) PO SCH (21:44)
[2016-06-19] MEDS: THIAMINE HCL 100 MG TABLET (FP) PO SCH (21:44)
[2016-06-20] MEDS: METHADONE HCL 10 MG TABLET PO SCH (06:35)
[2016-06-20] MEDS: LACTULOSE 20 GM/30 ML UDC (FOR ORAL USE ONLY) PO SCH ×3 (06:35→21:34)
[2016-06-20] MEDS: IBUPROFEN 400 MG TABLET (FP) PO PRN (06:38)
[2016-06-20] MEDS: PRENATAL VITAMINS W/ FOLIC ACID TABLET (FP) PO SCH (09:46)
[2016-06-20] MEDS: PROPRANOLOL HCL 20 MG TABLET PO SCH (09:47)
[2016-06-20] MEDS: NICOTINE 14 MG/24 HOURS TOPICAL PATCH TD SCH (09:47)
[2016-06-20] MEDS: HYDROCHLOROTHIAZIDE 25 MG TABLET (FP) PO SCH (10:35)
[2016-06-20] MEDS: RANITIDINE HCL 150 MG TABLET (FP) PO SCH ×2 (10:35→21:35)
[2016-06-20] MEDS: THIAMINE HCL 100 MG TABLET (FP) PO SCH (21:35)
[2016-06-20] MEDS: diphenhydrAMINE HCL 50 MG CAPSULE PO PRN (21:36)
[2016-06-21] MEDS: METHADONE HCL 10 MG TABLET PO SCH (06:27)
[2016-06-21] MEDS: LACTULOSE 20 GM/30 ML UDC (FOR ORAL USE ONLY) PO SCH ×3 (06:27→21:17)
[2016-06-21] MEDS: IBUPROFEN 400 MG TABLET (FP) PO PRN ×3 (06:28→21:19)
[2016-06-21] MEDS: PROPRANOLOL HCL 20 MG TABLET PO SCH (09:40)
[2016-06-21] MEDS: NICOTINE 14 MG/24 HOURS TOPICAL PATCH TD SCH (09:40)
[2016-06-21] MEDS: HYDROCHLOROTHIAZIDE 25 MG TABLET (FP) PO SCH (09:40)
[2016-06-21] MEDS: RANITIDINE HCL 150 MG TABLET (FP) PO SCH ×2 (09:40→21:17)
[2016-06-21] MEDS: PRENATAL VITAMINS W/ FOLIC ACID TABLET (FP) PO SCH (09:40)
[2016-06-21] MEDS: THIAMINE HCL 100 MG TABLET (FP) PO SCH (21:17)
[2016-06-21] MEDS: diphenhydrAMINE HCL 50 MG CAPSULE PO PRN (21:19)
[2016-06-22] MEDS: METHADONE HCL 10 MG TABLET PO SCH (06:36)
[2016-06-22] MEDS: LACTULOSE 20 GM/30 ML UDC (FOR ORAL USE ONLY) PO SCH ×3 (06:36→21:26)
[2016-06-22] MEDS: IBUPROFEN 400 MG TABLET (FP) PO PRN (06:38)
[2016-06-22] MEDS: RANITIDINE HCL 150 MG TABLET (FP) PO SCH ×2 (10:26→21:26)
[2016-06-22] MEDS: PROPRANOLOL HCL 20 MG TABLET PO SCH (10:26)
[2016-06-22] MEDS: PRENATAL VITAMINS W/ FOLIC ACID TABLET (FP) PO SCH (10:26)
[2016-06-22] MEDS: HYDROCHLOROTHIAZIDE 25 MG TABLET (FP) PO SCH (10:26)
[2016-06-22] MEDS: NICOTINE 14 MG/24 HOURS TOPICAL PATCH TD SCH (10:27)
[2016-06-22] MEDS: THIAMINE HCL 100 MG TABLET (FP) PO SCH (21:26)
[2016-06-22] MEDS: diphenhydrAMINE HCL 50 MG CAPSULE PO PRN (21:27)
[2016-06-23] MEDS: LACTULOSE 20 GM/30 ML UDC (FOR ORAL USE ONLY) PO SCH ×3 (06:06→21:18)
[2016-06-23] MEDS: METHADONE HCL 10 MG TABLET PO SCH (06:07)
[2016-06-23] MEDS: PRENATAL VITAMINS W/ FOLIC ACID TABLET (FP) PO SCH (09:58)
[2016-06-23] MEDS: RANITIDINE HCL 150 MG TABLET (FP) PO SCH ×2 (09:58→21:17)
[2016-06-23] MEDS: PROPRANOLOL HCL 20 MG TABLET PO SCH (09:58)
[2016-06-23] MEDS: HYDROCHLOROTHIAZIDE 25 MG TABLET (FP) PO SCH (09:58)
[2016-06-23] MEDS: NICOTINE 14 MG/24 HOURS TOPICAL PATCH TD SCH (09:59)
[2016-06-23] MEDS: SERTRALINE HCL 50 MG TABLET (FP) PO SCH (10:03)
[2016-06-23] MEDS: IBUPROFEN 400 MG TABLET (FP) PO PRN (18:39)
[2016-06-23] MEDS: diphenhydrAMINE HCL 50 MG CAPSULE PO PRN (21:17)
[2016-06-23] MEDS: THIAMINE HCL 100 MG TABLET (FP) PO SCH (21:17)
[2016-06-24] MEDS: METHADONE HCL 10 MG TABLET PO SCH (06:35)
[2016-06-24] MEDS: LACTULOSE 20 GM/30 ML UDC (FOR ORAL USE ONLY) PO SCH ×3 (06:36→22:01)
[2016-06-24 09:52] LABS: BASOPHIL 0.6 % (0-2.0); EOSINOPHIL 2.6 % (0-4.5); MCHC 33.9 g/dl (32.0-35.9); MEAN CELL VOLUME 97.5 fl (80-96); MEAN PLT VOLUME 10.1 fl (7.5-11.1); NEUTROPHILS 64.7 % (42.8-82.8); PLATELET COUNT 58 K/MM3 (134-434); RDW 14.7 % (11.9-15.9); WHITE BLOOD COUNT 4.8 K/mm3 (4.0-10.0)
[2016-06-24] MEDS: RANITIDINE HCL 150 MG TABLET (FP) PO SCH ×2 (09:52→22:01)
[2016-06-24] MEDS: SERTRALINE HCL 50 MG TABLET (FP) PO SCH (09:52)
[2016-06-24] MEDS: PRENATAL VITAMINS W/ FOLIC ACID TABLET (FP) PO SCH (09:52)
[2016-06-24] MEDS: HYDROCHLOROTHIAZIDE 25 MG TABLET (FP) PO SCH (09:53)
[2016-06-24] MEDS: NICOTINE 14 MG/24 HOURS TOPICAL PATCH TD SCH (09:53)
[2016-06-24] MEDS: IBUPROFEN 400 MG TABLET (FP) PO PRN (09:56)
[2016-06-24 10:54] LABS: CALCIUM 8.4 mg/dL (8.5-10.1); COCKROFT - GAULT 124.18; CREATININE 0.8 mg/dL (0.7-1.3)
[2016-06-24] MEDS: PROPRANOLOL HCL 20 MG TABLET PO SCH (11:15)
[2016-06-24] MEDS: THIAMINE HCL 100 MG TABLET (FP) PO SCH (22:01)
[2016-06-24] MEDS: diphenhydrAMINE HCL 50 MG CAPSULE PO PRN (22:03)
[2016-06-25] MEDS: METHADONE HCL 10 MG TABLET PO SCH (06:37)
[2016-06-25] MEDS: LACTULOSE 20 GM/30 ML UDC (FOR ORAL USE ONLY) PO SCH ×3 (06:37→21:02)
[2016-06-25] MEDS: IBUPROFEN 400 MG TABLET (FP) PO PRN (06:38)
[2016-06-25] MEDS: RANITIDINE HCL 150 MG TABLET (FP) PO SCH ×2 (10:00→21:02)
[2016-06-25] MEDS: PRENATAL VITAMINS W/ FOLIC ACID TABLET (FP) PO SCH (10:00)
[2016-06-25] MEDS: HYDROCHLOROTHIAZIDE 25 MG TABLET (FP) PO SCH (10:00)
[2016-06-25] MEDS: SERTRALINE HCL 50 MG TABLET (FP) PO SCH (10:00)
[2016-06-25] MEDS: PROPRANOLOL HCL 20 MG TABLET PO SCH (10:00)
[2016-06-25] MEDS: NICOTINE 14 MG/24 HOURS TOPICAL PATCH TD SCH (11:38)
[2016-06-25] MEDS: THIAMINE HCL 100 MG TABLET (FP) PO SCH (21:02)
[2016-06-25] MEDS: diphenhydrAMINE HCL 50 MG CAPSULE PO PRN (21:02)
[2016-06-26] MEDS: LACTULOSE 20 GM/30 ML UDC (FOR ORAL USE ONLY) PO SCH ×3 (06:05→21:01)
[2016-06-26] MEDS: IBUPROFEN 400 MG TABLET (FP) PO PRN (06:05)
[2016-06-26] MEDS: METHADONE HCL 10 MG TABLET PO SCH (06:05)
[2016-06-26] MEDS: SERTRALINE HCL 50 MG TABLET (FP) PO SCH (09:45)
[2016-06-26] MEDS: PROPRANOLOL HCL 20 MG TABLET PO SCH (09:45)
[2016-06-26] MEDS: PRENATAL VITAMINS W/ FOLIC ACID TABLET (FP) PO SCH (09:45)
[2016-06-26] MEDS: NICOTINE 14 MG/24 HOURS TOPICAL PATCH TD SCH (09:45)
[2016-06-26] MEDS: HYDROCHLOROTHIAZIDE 25 MG TABLET (FP) PO SCH (09:45)
[2016-06-26] MEDS: RANITIDINE HCL 150 MG TABLET (FP) PO SCH ×2 (09:45→21:02)
--- NOTE | 2016-06-26 15:21 | PN ---
Psychiatric Progress Note Vital Signs: Vital Signs Period Temp Pulse Resp BP Sys/Gutierrez Pulse Ox Last 24 Hr 98.4 F 75-76 18-20 119-120/65-66 Date of Session: 06/26/16 Chief Complaint:: progress update HPI: Patient is addressing alcohol, nicotine dependence comorbid Impulse control disorder. ROS: Thrombocytopenia , leukopenia,hepatitis C, hypertension, arthritis, hip pain ,right inguinal hernia, umbilical hernia and a distant history of orthosurgery and left knee, elevated ammonia level Current Medications: Active Medications Generic Name Dose Route Start Last Admin Trade Name Freq PRN Reason Stop Dose Admin Al Hydroxide/Mg Hydroxide 30 ml 06/16/16 13:35 Mylanta Oral Suspension - PO Q6H PRN DYSPEPSIA Diphenhydramine HCl 50 mg 06/16/16 13:35 06/25/16 21:02 Benadryl - PO 50 mg HSMR1 PRN Administration INSOMNIA Eucalyptus/Menthol/Phenol/Sorbitol 1 each 06/16/16 13:35 Cepastat Lozenge - MM Q4H PRN SORE THROAT Guaifenesin 10 ml 06/16/16 13:35 Robitussin Dm - PO Q6H PRN COUGH Hydrochlorothiazide 25 mg 06/17/16 10:00 06/26/16 09:45 Hctz - PO 25 mg DAILY DANA Administration Ibuprofen 400 mg 06/16/16 13:35 06/26/16 06:05 Motrin - PO 400 mg Q6H PRN Administration SEVERE PAIN Lactulose 20 gm 06/19/16 22:00 06/26/16 14:24 Cephulac (Oral Use) PO 20 gm TID DANA Administration Loperamide HCl 4 mg 06/16/16 13:35 Imodium - PO Q6H PRN DIARRHEA Magnesium Hydroxide 30 ml 06/16/16 13:35 Milk Of Magnesia - PO DAILY PRN CONSTIPATION Methadone HCl 20 mg 06/25/16 06:00 06/26/16 06:05 Dolophine - PO 20 mg DAILY@0600 DANA Administration Nicotine 14 mg 06/17/16 10:00 06/26/16 09:45 Nicoderm Patch - TD Not Given DAILY DANA Nicotine Polacrilex 4 mg 06/16/16 13:35 Nicorette Gum - BC Q2H PRN NICOTINE REPLACEMENT RX Multivit/Folic Acid/Iron 1 tab 06/17/16 10:00 06/26/16 09:45 Vitamins (Sjr) - PO 1 tab DAILY DANA Administration Propranolol HCl 20 mg 06/17/16 10:00 06/26/16 09:45 Inderal - PO 20 mg DAILY DANA Administration Pseudoephedrine/Triprolidine 1 combo 06/16/16 13:35 Actifed - PO TID PRN NASAL CONGESTION Ranitidine HCl 150 mg 06/16/16 22:00 06/26/16 09:45 Zantac - PO 150 mg BID DANA Administration Risperidone 1 mg 06/26/16 22:00 Risperdal - PO HS DANA Sertraline HCl 50 mg 06/17/16 10:00 06/26/16 09:45 Zoloft - PO 50 mg DAILY DANA Administration Thiamine HCl 100 mg 06/16/16 22:00 06/25/16 21:02 Vitamin B1 - PO 100 mg HS DANA Administration Current Side Effect: No Lab tests ordered: No Lab tests reviewed: Yes (ammonia level went down from 201.58 to 48.83) Provider note:: The patient Risperdal and Zoloft were put on hold due to the patient high ammonia level, patient was re-evaluated today, he is visible in the unit, active and participates in groups activities. On weekends as was reported but the staffwas very disrespectul, irritable and security was called. Patient was explained that Ripredal will be restarted tonight. Supportive therapy provided, will continue to monitor progress. Total face to face time:: 30 Mental Status Exam - Mental Status Exam Alert and Oriented to: Time, Place, Person Cognitive Function: Good Patient Appearance: Well Groomed Mood: Anxious, Irritable Affect: Appropriate, Mood Congruent Patient Behavior: Appropriate, Cooperative Speech Pattern: Appropriate Voice Loudness: Normal Thought Process: Intact, Goal Oriented Thought Disorder: Not Present Hallucinations: Denies Suicidal Ideation: Denies Homicidal Ideation: Denies Insight/Judgement: Fair Sleep: Fair Appetite: Fair Muscle strength/Tone: Normal Gait/Station: Normal Psychiatric Treatment Plan - Problem List (1) Chronic alcoholism Current Visit: No (2) Nicotine dependence Current Visit: No Qualifiers: Nicotine product type: cigarettes Substance use status: in withdrawal Qualified Code(s): F17.213 - Nicotine dependence, cigarettes, with withdrawal (3) Impulse control disorder Current Visit: No
[2016-06-26] MEDS: risperiDONE 1 MG TABLET (FP) PO SCH (21:02)
[2016-06-26] MEDS: THIAMINE HCL 100 MG TABLET (FP) PO SCH (21:02)
[2016-06-27] MEDS: LACTULOSE 20 GM/30 ML UDC (FOR ORAL USE ONLY) PO SCH ×3 (06:10→21:02)
[2016-06-27] MEDS: METHADONE HCL 10 MG TABLET PO SCH (06:10)
[2016-06-27] MEDS: IBUPROFEN 400 MG TABLET (FP) PO PRN (06:12)
[2016-06-27] MEDS: PRENATAL VITAMINS W/ FOLIC ACID TABLET (FP) PO SCH (10:11)
[2016-06-27] MEDS: HYDROCHLOROTHIAZIDE 25 MG TABLET (FP) PO SCH (10:11)
[2016-06-27] MEDS: SERTRALINE HCL 50 MG TABLET (FP) PO SCH (10:11)
[2016-06-27] MEDS: RANITIDINE HCL 150 MG TABLET (FP) PO SCH ×2 (10:12→21:02)
[2016-06-27] MEDS: NICOTINE 14 MG/24 HOURS TOPICAL PATCH TD SCH (10:12)
[2016-06-27] MEDS: PROPRANOLOL HCL 20 MG TABLET PO SCH (10:13)
[2016-06-27] MEDS: risperiDONE 1 MG TABLET (FP) PO SCH (21:02)
[2016-06-27] MEDS: THIAMINE HCL 100 MG TABLET (FP) PO SCH (21:02)
[2016-06-27] MEDS: diphenhydrAMINE HCL 50 MG CAPSULE PO PRN (21:04)
[2016-06-28] MEDS: LACTULOSE 20 GM/30 ML UDC (FOR ORAL USE ONLY) PO SCH ×3 (06:29→21:08)
[2016-06-28] MEDS: METHADONE HCL 10 MG TABLET PO SCH (06:30)
[2016-06-28] MEDS ORDERED: PT OWN MED DRAWER 7, Y5N ONE (08:45)
[2016-06-28] MEDS: PRENATAL VITAMINS W/ FOLIC ACID TABLET (FP) PO SCH (09:29)
[2016-06-28] MEDS: IBUPROFEN 400 MG TABLET (FP) PO PRN (09:29)
[2016-06-28] MEDS: SERTRALINE HCL 50 MG TABLET (FP) PO SCH (09:31)
[2016-06-28] MEDS: RANITIDINE HCL 150 MG TABLET (FP) PO SCH ×2 (09:31→21:08)
[2016-06-28] MEDS: PROPRANOLOL HCL 20 MG TABLET PO SCH (09:31)
[2016-06-28] MEDS: HYDROCHLOROTHIAZIDE 25 MG TABLET (FP) PO SCH (09:31)
[2016-06-28] MEDS: NICOTINE 14 MG/24 HOURS TOPICAL PATCH TD SCH (10:37)
[2016-06-28] MEDS: risperiDONE 1 MG TABLET (FP) PO SCH (21:08)
[2016-06-28] MEDS: THIAMINE HCL 100 MG TABLET (FP) PO SCH (21:09)
[2016-06-28] MEDS: diphenhydrAMINE HCL 50 MG CAPSULE PO PRN (21:10)
[2016-06-29] MEDS: LACTULOSE 20 GM/30 ML UDC (FOR ORAL USE ONLY) PO SCH ×3 (06:42→21:04)
[2016-06-29] MEDS: METHADONE HCL 10 MG TABLET PO SCH (06:43)
[2016-06-29] MEDS: PRENATAL VITAMINS W/ FOLIC ACID TABLET (FP) PO SCH (09:44)
[2016-06-29] MEDS: RANITIDINE HCL 150 MG TABLET (FP) PO SCH ×2 (09:44→21:03)
[2016-06-29] MEDS: HYDROCHLOROTHIAZIDE 25 MG TABLET (FP) PO SCH (09:44)
[2016-06-29] MEDS: NICOTINE 14 MG/24 HOURS TOPICAL PATCH TD SCH (09:44)
[2016-06-29] MEDS: PROPRANOLOL HCL 20 MG TABLET PO SCH (09:44)
[2016-06-29] MEDS: SERTRALINE HCL 50 MG TABLET (FP) PO SCH (09:44)
[2016-06-29] MEDS: IBUPROFEN 400 MG TABLET (FP) PO PRN (09:45)
[2016-06-29] MEDS: THIAMINE HCL 100 MG TABLET (FP) PO SCH (21:03)
[2016-06-29] MEDS: risperiDONE 1 MG TABLET (FP) PO SCH (21:04)
[2016-06-29] MEDS: diphenhydrAMINE HCL 50 MG CAPSULE PO PRN (21:04)
[2016-06-30] MEDS: METHADONE HCL 10 MG TABLET PO SCH (06:10)
[2016-06-30] MEDS: LACTULOSE 20 GM/30 ML UDC (FOR ORAL USE ONLY) PO SCH ×3 (06:10→21:08)
[2016-06-30] MEDS: IBUPROFEN 400 MG TABLET (FP) PO PRN ×2 (06:11→14:03)
[2016-06-30] MEDS: RANITIDINE HCL 150 MG TABLET (FP) PO SCH ×2 (09:29→21:08)
[2016-06-30] MEDS: HYDROCHLOROTHIAZIDE 25 MG TABLET (FP) PO SCH (09:29)
[2016-06-30] MEDS: SERTRALINE HCL 50 MG TABLET (FP) PO SCH (09:29)
[2016-06-30] MEDS: PROPRANOLOL HCL 20 MG TABLET PO SCH (09:29)
[2016-06-30] MEDS: PRENATAL VITAMINS W/ FOLIC ACID TABLET (FP) PO SCH (09:29)
[2016-06-30] MEDS: NICOTINE 14 MG/24 HOURS TOPICAL PATCH TD SCH (09:30)
[2016-06-30] MEDS: THIAMINE HCL 100 MG TABLET (FP) PO SCH (21:08)
[2016-06-30] MEDS: risperiDONE 1 MG TABLET (FP) PO SCH (21:08)
[2016-06-30] MEDS: diphenhydrAMINE HCL 50 MG CAPSULE PO PRN (21:09)
[2016-07-01] MEDS: LACTULOSE 20 GM/30 ML UDC (FOR ORAL USE ONLY) PO SCH ×3 (06:19→21:14)
[2016-07-01] MEDS: METHADONE HCL 10 MG TABLET PO SCH (06:19)
[2016-07-01] MEDS: IBUPROFEN 400 MG TABLET (FP) PO PRN ×2 (06:21→14:18)
[2016-07-01] MEDS: RANITIDINE HCL 150 MG TABLET (FP) PO SCH ×2 (09:58→21:14)
[2016-07-01] MEDS: HYDROCHLOROTHIAZIDE 25 MG TABLET (FP) PO SCH (09:58)
[2016-07-01] MEDS: PRENATAL VITAMINS W/ FOLIC ACID TABLET (FP) PO SCH (09:58)
[2016-07-01] MEDS: SERTRALINE HCL 50 MG TABLET (FP) PO SCH (09:58)
[2016-07-01] MEDS: PROPRANOLOL HCL 20 MG TABLET PO SCH (09:59)
[2016-07-01] MEDS: NICOTINE 14 MG/24 HOURS TOPICAL PATCH TD SCH (09:59)
[2016-07-01] MEDS: THIAMINE HCL 100 MG TABLET (FP) PO SCH (21:14)
[2016-07-01] MEDS: risperiDONE 1 MG TABLET (FP) PO SCH (21:14)
[2016-07-01] MEDS: diphenhydrAMINE HCL 50 MG CAPSULE PO PRN (21:14)
[2016-07-02] MEDS: LACTULOSE 20 GM/30 ML UDC (FOR ORAL USE ONLY) PO SCH ×3 (06:14→21:05)
[2016-07-02] MEDS: METHADONE HCL 10 MG TABLET PO SCH ×2 (06:15→06:31)
[2016-07-02] MEDS: IBUPROFEN 400 MG TABLET (FP) PO PRN (06:16)
[2016-07-02] MEDS: HYDROCHLOROTHIAZIDE 25 MG TABLET (FP) PO SCH (09:34)
[2016-07-02] MEDS: SERTRALINE HCL 50 MG TABLET (FP) PO SCH (09:34)
[2016-07-02] MEDS: RANITIDINE HCL 150 MG TABLET (FP) PO SCH ×2 (09:34→21:05)
[2016-07-02] MEDS: PRENATAL VITAMINS W/ FOLIC ACID TABLET (FP) PO SCH (09:35)
[2016-07-02] MEDS: PROPRANOLOL HCL 20 MG TABLET PO SCH (09:35)
[2016-07-02] MEDS: NICOTINE 14 MG/24 HOURS TOPICAL PATCH TD SCH (09:35)
--- NOTE | 2016-07-02 14:32 | PN ---
BHS Progress Note Note: pt aox3 in nad ambulating with cane appearing better .
[2016-07-02] MEDS: risperiDONE 1 MG TABLET (FP) PO SCH (21:05)
[2016-07-02] MEDS: THIAMINE HCL 100 MG TABLET (FP) PO SCH (21:05)
[2016-07-02] MEDS: diphenhydrAMINE HCL 50 MG CAPSULE PO PRN (21:07)
[2016-07-03] MEDS: METHADONE HCL 10 MG TABLET PO SCH (06:20)
[2016-07-03] MEDS: LACTULOSE 20 GM/30 ML UDC (FOR ORAL USE ONLY) PO SCH ×3 (06:20→21:05)
[2016-07-03] MEDS: IBUPROFEN 400 MG TABLET (FP) PO PRN (06:21)
[2016-07-03] MEDS: PRENATAL VITAMINS W/ FOLIC ACID TABLET (FP) PO SCH (09:51)
[2016-07-03] MEDS: HYDROCHLOROTHIAZIDE 25 MG TABLET (FP) PO SCH (09:52)
[2016-07-03] MEDS: PROPRANOLOL HCL 20 MG TABLET PO SCH (09:52)
[2016-07-03] MEDS: RANITIDINE HCL 150 MG TABLET (FP) PO SCH ×2 (09:52→21:05)
[2016-07-03] MEDS: SERTRALINE HCL 50 MG TABLET (FP) PO SCH (09:52)
[2016-07-03] MEDS: NICOTINE 14 MG/24 HOURS TOPICAL PATCH TD SCH (09:53)
[2016-07-03] MEDS: THIAMINE HCL 100 MG TABLET (FP) PO SCH (21:05)
[2016-07-03] MEDS: risperiDONE 1 MG TABLET (FP) PO SCH (21:05)
[2016-07-03] MEDS: diphenhydrAMINE HCL 50 MG CAPSULE PO PRN (21:06)
[2016-07-04] MEDS: METHADONE HCL 10 MG TABLET PO SCH (06:02)
[2016-07-04] MEDS: LACTULOSE 20 GM/30 ML UDC (FOR ORAL USE ONLY) PO SCH ×3 (06:02→22:02)
[2016-07-04] MEDS: IBUPROFEN 400 MG TABLET (FP) PO PRN (06:06)
[2016-07-04] MEDS: HYDROCHLOROTHIAZIDE 25 MG TABLET (FP) PO SCH (09:36)
[2016-07-04] MEDS: SERTRALINE HCL 50 MG TABLET (FP) PO SCH (09:36)
[2016-07-04] MEDS: RANITIDINE HCL 150 MG TABLET (FP) PO SCH ×2 (09:36→21:03)
[2016-07-04] MEDS: PROPRANOLOL HCL 20 MG TABLET PO SCH (09:36)
[2016-07-04] MEDS: PRENATAL VITAMINS W/ FOLIC ACID TABLET (FP) PO SCH (09:36)
[2016-07-04] MEDS: NICOTINE 14 MG/24 HOURS TOPICAL PATCH TD SCH (09:37)
[2016-07-04] MEDS: THIAMINE HCL 100 MG TABLET (FP) PO SCH (21:03)
[2016-07-04] MEDS: risperiDONE 1 MG TABLET (FP) PO SCH (21:03)
[2016-07-04] MEDS: diphenhydrAMINE HCL 50 MG CAPSULE PO PRN (21:04)
[2016-07-05] MEDS: LACTULOSE 20 GM/30 ML UDC (FOR ORAL USE ONLY) PO SCH ×3 (06:29→21:02)
[2016-07-05] MEDS: METHADONE HCL 10 MG TABLET PO SCH (06:29)
[2016-07-05] MEDS: IBUPROFEN 400 MG TABLET (FP) PO PRN ×2 (06:30→14:40)
[2016-07-05] MEDS: RANITIDINE HCL 150 MG TABLET (FP) PO SCH ×2 (09:39→21:02)
[2016-07-05] MEDS: HYDROCHLOROTHIAZIDE 25 MG TABLET (FP) PO SCH (09:39)
[2016-07-05] MEDS: PRENATAL VITAMINS W/ FOLIC ACID TABLET (FP) PO SCH (09:39)
[2016-07-05] MEDS: SERTRALINE HCL 50 MG TABLET (FP) PO SCH (09:39)
[2016-07-05] MEDS: NICOTINE 14 MG/24 HOURS TOPICAL PATCH TD SCH (09:39)
[2016-07-05] MEDS: PROPRANOLOL HCL 20 MG TABLET PO SCH (09:40)
[2016-07-05] MEDS: risperiDONE 1 MG TABLET (FP) PO SCH (21:02)
[2016-07-05] MEDS: diphenhydrAMINE HCL 50 MG CAPSULE PO PRN (21:02)
[2016-07-05] MEDS: THIAMINE HCL 100 MG TABLET (FP) PO SCH (21:02)
[2016-07-06] MEDS: METHADONE HCL 10 MG TABLET PO SCH (06:26)
[2016-07-06] MEDS: LACTULOSE 20 GM/30 ML UDC (FOR ORAL USE ONLY) PO SCH ×3 (06:26→21:02)
[2016-07-06] MEDS: HYDROCHLOROTHIAZIDE 25 MG TABLET (FP) PO SCH (09:39)
[2016-07-06] MEDS: PRENATAL VITAMINS W/ FOLIC ACID TABLET (FP) PO SCH (09:39)
[2016-07-06] MEDS: SERTRALINE HCL 50 MG TABLET (FP) PO SCH (09:39)
[2016-07-06] MEDS: PROPRANOLOL HCL 20 MG TABLET PO SCH (09:39)
[2016-07-06] MEDS: NICOTINE 14 MG/24 HOURS TOPICAL PATCH TD SCH (09:39)
[2016-07-06] MEDS: RANITIDINE HCL 150 MG TABLET (FP) PO SCH ×2 (09:39→21:02)
[2016-07-06] MEDS: IBUPROFEN 400 MG TABLET (FP) PO PRN (09:41)
[2016-07-06] MEDS: THIAMINE HCL 100 MG TABLET (FP) PO SCH (21:02)
[2016-07-06] MEDS: risperiDONE 1 MG TABLET (FP) PO SCH (21:02)
[2016-07-06] MEDS: diphenhydrAMINE HCL 50 MG CAPSULE PO PRN (21:03)
[2016-07-07] MEDS: METHADONE HCL 10 MG TABLET PO SCH (06:13)
[2016-07-07] MEDS: LACTULOSE 20 GM/30 ML UDC (FOR ORAL USE ONLY) PO SCH ×3 (06:13→21:04)
[2016-07-07] MEDS: IBUPROFEN 400 MG TABLET (FP) PO PRN (06:16)
[2016-07-07] MEDS: PROPRANOLOL HCL 20 MG TABLET PO SCH (09:53)
[2016-07-07] MEDS: RANITIDINE HCL 150 MG TABLET (FP) PO SCH ×2 (09:53→21:04)
[2016-07-07] MEDS: HYDROCHLOROTHIAZIDE 25 MG TABLET (FP) PO SCH (09:53)
[2016-07-07] MEDS: SERTRALINE HCL 50 MG TABLET (FP) PO SCH (09:53)
[2016-07-07] MEDS: NICOTINE 14 MG/24 HOURS TOPICAL PATCH TD SCH (09:54)
[2016-07-07] MEDS: PRENATAL VITAMINS W/ FOLIC ACID TABLET (FP) PO SCH (09:54)
[2016-07-07] MEDS: risperiDONE 1 MG TABLET (FP) PO SCH (21:04)
[2016-07-07] MEDS: diphenhydrAMINE HCL 50 MG CAPSULE PO PRN (21:04)
[2016-07-07] MEDS: THIAMINE HCL 100 MG TABLET (FP) PO SCH (21:04)
[2016-07-08] MEDS: LACTULOSE 20 GM/30 ML UDC (FOR ORAL USE ONLY) PO SCH ×3 (05:59→21:05)
[2016-07-08] MEDS: METHADONE HCL 10 MG TABLET PO SCH (05:59)
[2016-07-08] MEDS: IBUPROFEN 400 MG TABLET (FP) PO PRN (06:00)
[2016-07-08] MEDS: HYDROCHLOROTHIAZIDE 25 MG TABLET (FP) PO SCH (09:56)
[2016-07-08] MEDS: PROPRANOLOL HCL 20 MG TABLET PO SCH (09:56)
[2016-07-08] MEDS: PRENATAL VITAMINS W/ FOLIC ACID TABLET (FP) PO SCH (09:56)
[2016-07-08] MEDS: NICOTINE 14 MG/24 HOURS TOPICAL PATCH TD SCH (09:56)
[2016-07-08] MEDS: RANITIDINE HCL 150 MG TABLET (FP) PO SCH ×2 (09:56→21:05)
[2016-07-08] MEDS: SERTRALINE HCL 50 MG TABLET (FP) PO SCH (09:56)
[2016-07-08] MEDS: risperiDONE 1 MG TABLET (FP) PO SCH (21:05)
[2016-07-08] MEDS: THIAMINE HCL 100 MG TABLET (FP) PO SCH (21:05)
[2016-07-08] MEDS: diphenhydrAMINE HCL 50 MG CAPSULE PO PRN (21:06)
[2016-07-09] MEDS: METHADONE HCL 10 MG TABLET PO SCH (06:29)
[2016-07-09] MEDS: LACTULOSE 20 GM/30 ML UDC (FOR ORAL USE ONLY) PO SCH ×3 (06:30→21:02)
[2016-07-09] MEDS: RANITIDINE HCL 150 MG TABLET (FP) PO SCH ×2 (09:38→21:02)
[2016-07-09] MEDS: HYDROCHLOROTHIAZIDE 25 MG TABLET (FP) PO SCH (09:38)
[2016-07-09] MEDS: PRENATAL VITAMINS W/ FOLIC ACID TABLET (FP) PO SCH (09:38)
[2016-07-09] MEDS: SERTRALINE HCL 50 MG TABLET (FP) PO SCH (09:38)
[2016-07-09] MEDS: NICOTINE 14 MG/24 HOURS TOPICAL PATCH TD SCH (09:39)
[2016-07-09] MEDS: PROPRANOLOL HCL 20 MG TABLET PO SCH (09:40)
[2016-07-09] MEDS: IBUPROFEN 400 MG TABLET (FP) PO PRN (09:40)
[2016-07-09] MEDS: THIAMINE HCL 100 MG TABLET (FP) PO SCH (21:02)
[2016-07-09] MEDS: risperiDONE 1 MG TABLET (FP) PO SCH (21:02)
[2016-07-09] MEDS: diphenhydrAMINE HCL 50 MG CAPSULE PO PRN (21:03)
[2016-07-10] MEDS: LACTULOSE 20 GM/30 ML UDC (FOR ORAL USE ONLY) PO SCH ×3 (06:15→21:05)
[2016-07-10] MEDS: METHADONE HCL 10 MG TABLET PO SCH (06:16)
[2016-07-10] MEDS: IBUPROFEN 400 MG TABLET (FP) PO PRN (06:17)
[2016-07-10] MEDS: PROPRANOLOL HCL 20 MG TABLET PO SCH (09:57)
[2016-07-10] MEDS: RANITIDINE HCL 150 MG TABLET (FP) PO SCH ×2 (09:57→21:04)
[2016-07-10] MEDS: HYDROCHLOROTHIAZIDE 25 MG TABLET (FP) PO SCH (09:57)
[2016-07-10] MEDS: PRENATAL VITAMINS W/ FOLIC ACID TABLET (FP) PO SCH (09:57)
[2016-07-10] MEDS: SERTRALINE HCL 50 MG TABLET (FP) PO SCH (09:58)
[2016-07-10] MEDS: NICOTINE 14 MG/24 HOURS TOPICAL PATCH TD SCH (09:59)
[2016-07-10] MEDS: THIAMINE HCL 100 MG TABLET (FP) PO SCH (21:04)
[2016-07-10] MEDS: risperiDONE 1 MG TABLET (FP) PO SCH (21:05)
[2016-07-10] MEDS: diphenhydrAMINE HCL 50 MG CAPSULE PO PRN (21:05)
[2016-07-11] MEDS: METHADONE HCL 10 MG TABLET PO SCH (06:04)
[2016-07-11] MEDS: LACTULOSE 20 GM/30 ML UDC (FOR ORAL USE ONLY) PO SCH ×3 (06:05→21:06)
[2016-07-11] MEDS: IBUPROFEN 400 MG TABLET (FP) PO PRN (06:07)
[2016-07-11] MEDS: NICOTINE 14 MG/24 HOURS TOPICAL PATCH TD SCH (09:28)
[2016-07-11] MEDS: HYDROCHLOROTHIAZIDE 25 MG TABLET (FP) PO SCH (09:28)
[2016-07-11] MEDS: PRENATAL VITAMINS W/ FOLIC ACID TABLET (FP) PO SCH (09:28)
[2016-07-11] MEDS: PROPRANOLOL HCL 20 MG TABLET PO SCH (09:28)
[2016-07-11] MEDS: RANITIDINE HCL 150 MG TABLET (FP) PO SCH ×2 (09:28→21:06)
[2016-07-11] MEDS: SERTRALINE HCL 50 MG TABLET (FP) PO SCH (09:28)
[2016-07-11] MEDS: THIAMINE HCL 100 MG TABLET (FP) PO SCH (21:05)
[2016-07-11] MEDS: diphenhydrAMINE HCL 50 MG CAPSULE PO PRN (21:06)
[2016-07-11] MEDS: risperiDONE 1 MG TABLET (FP) PO SCH (21:06)
[2016-07-12] MEDS: METHADONE HCL 10 MG TABLET PO SCH (06:12)
[2016-07-12] MEDS: LACTULOSE 20 GM/30 ML UDC (FOR ORAL USE ONLY) PO SCH ×3 (06:13→21:05)
[2016-07-12] MEDS: IBUPROFEN 400 MG TABLET (FP) PO PRN (08:40)
[2016-07-12] MEDS: SERTRALINE HCL 50 MG TABLET (FP) PO SCH (09:44)
[2016-07-12] MEDS: PRENATAL VITAMINS W/ FOLIC ACID TABLET (FP) PO SCH (09:44)
[2016-07-12] MEDS: RANITIDINE HCL 150 MG TABLET (FP) PO SCH ×2 (09:45→21:05)
[2016-07-12] MEDS: PROPRANOLOL HCL 20 MG TABLET PO SCH (09:45)
[2016-07-12] MEDS: HYDROCHLOROTHIAZIDE 25 MG TABLET (FP) PO SCH (09:45)
[2016-07-12] MEDS: NICOTINE 14 MG/24 HOURS TOPICAL PATCH TD SCH (09:45)
[2016-07-12] MEDS: risperiDONE 1 MG TABLET (FP) PO SCH (21:05)
[2016-07-12] MEDS: THIAMINE HCL 100 MG TABLET (FP) PO SCH (21:05)
[2016-07-12] MEDS: diphenhydrAMINE HCL 50 MG CAPSULE PO PRN (21:06)
[2016-07-13] MEDS: IBUPROFEN 400 MG TABLET (FP) PO PRN ×2 (06:06→13:49)
[2016-07-13] MEDS: METHADONE HCL 10 MG TABLET PO SCH (06:06)
[2016-07-13] MEDS: LACTULOSE 20 GM/30 ML UDC (FOR ORAL USE ONLY) PO SCH ×3 (06:06→21:02)
[2016-07-13] MEDS: RANITIDINE HCL 150 MG TABLET (FP) PO SCH ×2 (09:42→21:02)
[2016-07-13] MEDS: HYDROCHLOROTHIAZIDE 25 MG TABLET (FP) PO SCH (09:42)
[2016-07-13] MEDS: PRENATAL VITAMINS W/ FOLIC ACID TABLET (FP) PO SCH (09:42)
[2016-07-13] MEDS: PROPRANOLOL HCL 20 MG TABLET PO SCH (09:42)
[2016-07-13] MEDS: SERTRALINE HCL 50 MG TABLET (FP) PO SCH (09:42)
[2016-07-13] MEDS: NICOTINE 14 MG/24 HOURS TOPICAL PATCH TD SCH (09:43)
[2016-07-13] MEDS: risperiDONE 1 MG TABLET (FP) PO SCH (21:02)
[2016-07-13] MEDS: THIAMINE HCL 100 MG TABLET (FP) PO SCH (21:02)
[2016-07-13] MEDS: diphenhydrAMINE HCL 50 MG CAPSULE PO PRN (21:02)
[2016-07-14] MEDS: METHADONE HCL 10 MG TABLET PO SCH (05:53)
[2016-07-14] MEDS: LACTULOSE 20 GM/30 ML UDC (FOR ORAL USE ONLY) PO SCH (05:53)
[2016-07-14] MEDS: IBUPROFEN 400 MG TABLET (FP) PO PRN (05:56)
[2016-07-14 06:24] VITALS: BP 139/78; PULSE 89; TEMP 98.6
[2016-07-14] MEDS: PROPRANOLOL HCL 20 MG TABLET PO SCH (09:55)
[2016-07-14] MEDS: SERTRALINE HCL 50 MG TABLET (FP) PO SCH (09:55)
[2016-07-14] MEDS: HYDROCHLOROTHIAZIDE 25 MG TABLET (FP) PO SCH (09:55)
[2016-07-14] MEDS: PRENATAL VITAMINS W/ FOLIC ACID TABLET (FP) PO SCH (09:55)
[2016-07-14] MEDS: RANITIDINE HCL 150 MG TABLET (FP) PO SCH (09:55)
[2016-07-14] MEDS: NICOTINE 14 MG/24 HOURS TOPICAL PATCH TD SCH (09:56)
--- NOTE | 2016-07-14 10:53 | PN ---
Psychiatric Progress Note Vital Signs: Vital Signs Period Temp Pulse Resp BP Sys/Gutierrez Pulse Ox Last 24 Hr 98.6 F 89 18-20 139/78 Date of Session: 07/14/16 Chief Complaint:: discharge visit HPI: Patient is addressing alcohol, nicotine dependence comorbid Impulse control disorder. ROS: Thrombocytopenia , leukopenia,hepatitis C, hypertension, arthritis, hip pain ,right inguinal hernia, umbilical hernia and a distant history of orthosurgery and left knee, elevated ammonia level Current Medications: Active Medications Generic Name Dose Route Start Last Admin Trade Name Freq PRN Reason Stop Dose Admin Al Hydroxide/Mg Hydroxide 30 ml 06/16/16 13:35 Mylanta Oral Suspension - PO Q6H PRN DYSPEPSIA Diphenhydramine HCl 50 mg 06/16/16 13:35 07/13/16 21:02 Benadryl - PO 50 mg HSMR1 PRN Administration INSOMNIA Eucalyptus/Menthol/Phenol/Sorbitol 1 each 06/16/16 13:35 Cepastat Lozenge - MM Q4H PRN SORE THROAT Guaifenesin 10 ml 06/16/16 13:35 Robitussin Dm - PO Q6H PRN COUGH Hydrochlorothiazide 25 mg 06/17/16 10:00 07/14/16 09:55 Hctz - PO 25 mg DAILY DANA Administration Ibuprofen 400 mg 06/16/16 13:35 07/14/16 05:56 Motrin - PO 400 mg Q6H PRN Administration SEVERE PAIN Lactulose 20 gm 06/19/16 22:00 07/14/16 05:53 Cephulac (Oral Use) PO 20 gm TID DANA Administration Loperamide HCl 4 mg 06/16/16 13:35 Imodium - PO Q6H PRN DIARRHEA Magnesium Hydroxide 30 ml 06/16/16 13:35 Milk Of Magnesia - PO DAILY PRN CONSTIPATION Methadone HCl 20 mg 07/10/16 06:00 07/14/16 05:53 Dolophine - PO 07/16/16 05:59 20 mg DAILY@0600 DANA Administration Nicotine 14 mg 06/17/16 10:00 07/14/16 09:56 Nicoderm Patch - TD Not Given DAILY DANA Nicotine Polacrilex 4 mg 06/16/16 13:35 Nicorette Gum - BC Q2H PRN NICOTINE REPLACEMENT RX Multivit/Folic Acid/Iron 1 tab 06/17/16 10:00 07/14/16 09:55 Vitamins (Sjr) - PO 1 tab DAILY DANA Administration Propranolol HCl 20 mg 06/17/16 10:00 07/14/16 09:55 Inderal - PO 20 mg DAILY DANA Administration Pseudoephedrine/Triprolidine 1 combo 06/16/16 13:35 Actifed - PO TID PRN NASAL CONGESTION Ranitidine HCl 150 mg 06/16/16 22:00 07/14/16 09:55 Zantac - PO 150 mg BID DANA Administration Risperidone 1 mg 06/26/16 22:00 07/13/16 21:02 Risperdal - PO 1 mg HS DANA Administration Sertraline HCl 50 mg 06/17/16 10:00 07/14/16 09:55 Zoloft - PO 50 mg DAILY DANA Administration Thiamine HCl 100 mg 06/16/16 22:00 07/13/16 21:02 Vitamin B1 - PO 100 mg HS DANA Administration Current Side Effect: No Lab tests ordered: No Lab tests reviewed: Yes Provider note:: Patient has compelted today this program and met his virginia rossi to address his issues at [facility] outpatient treatment program. Patient understands the importance of continue maintain abstinence and use all supports available to perevent relapse. Patient currently on Risperadal and Zoloft, discussed properties and indications each with the patient, medications well tolerated, patient was encouraged to take his medications as direceted and follow up with his medical appointments. Patient is stable for discharge today. Total face to face time:: 25 Mental Status Exam - Mental Status Exam Alert and Oriented to: Time, Place, Person Cognitive Function: Grossly Intact Patient Appearance: Well Groomed Mood: Hopeful Affect: Mood Congruent Patient Behavior: Appropriate, Cooperative Speech Pattern: Clear, Appropriate Voice Loudness: Normal Thought Process: Goal Oriented Thought Disorder: Not Present Hallucinations: Denies Suicidal Ideation: None Homicidal Ideation: None Insight/Judgement: Good Sleep: Well Appetite: Good Muscle strength/Tone: Normal Gait/Station: Other Psychiatric Treatment Plan - Problem List (1) Chronic alcoholism Current Visit: No (2) Nicotine dependence Current Visit: No Qualifiers: Nicotine product type: cigarettes Substance use status: in withdrawal Qualified Code(s): F17.213 - Nicotine dependence, cigarettes, with withdrawal (3) Impulse control disorder Current Visit: No
== END 2016-07-14 11:45 | disposition home or self-care (01) | DRG 772 ==
LOC: YASAS 13:03 → Y5N 13:05
PROVIDERS: ADMIT Psychiatry & Neurology Psychiatry; ATTEND Psychiatry & Neurology Psychiatry
PROC: HZ42ZZZ Group Counseling for Substance Abuse Treatment, Cognitive-Behavioral (ICD-10-PCS; principal; 2016-07-14)
DX: F10.230 Alcohol dependence with withdrawal, uncomplicated (principal); F17.213 Nicotine dependence, cigarettes, with withdrawal; F63.89 Other impulse disorders
CPT/HCPCS: 36415; 80048; 80053; 82140; 85025; 85610; J2794

== ENCOUNTER 2016-11-11 10:41 | Inpatient (IN) | payer OTHER ==
[2016-11-11 11:11] VITALS: BMI 29.8
--- NOTE | 2016-11-11 14:24 | HP ---
CIWA Score - CIWA Score Nausea/Vomitin-No Nausea/No Vomiting Muscle Tremors: 4-Moderate,w/Arms Extend Anxiety: 3 Agitation: 4-Moderately Restless Paroxysmal Sweats: 3 Orientation: 0-Oriented Tacttile Disturbances: 0-None Auditory Disturbances: 0-None Visual Disturbances: 0-None Headache: 0-None Present CIWA-Ar Total Score: 14 Admission ROS BHS - HPI Chief Complaint: I am here to detox. Allergies/Adverse Reactions: Allergies Allergy/AdvReac Type Severity Reaction Status Date / Time No Known Allergies Allergy Verified 11/11/16 11:26 History of Present Illness: pt is a 56yr old male with a history of alcohol dependence seeking detox for treatment. pt is on a mmtp program takes 15mg of methadone last dosed today. dose has been verified. Exam Limitations: No Limitations - Ebola screening Have you traveled outside of the country in the last 21 days: No Have you had contact with anyone from an Ebola affected area: No Have you been sick,other than usual withdrawal symptoms: No Do you have a fever: No - Review of Systems Constitutional: Chills, Night Sweats EENT: reports: No Symptoms Reported Respiratory: reports: Cough Cardiac: reports: No Symptoms Reported GI: reports: No Symptoms Reported : reports: No Symptoms Reported Musculoskeletal: reports: Joint Pain, Muscle Pain Integumentary: reports: Flushing, Sweating Neuro: reports: Headache, Tingling, Tremors Endocrine: reports: Excessive Sweating, Flushing, Intolerance to Cold, Intolerance to Heat Hematology: reports: No Symptoms Reported Psychiatric: reports: Judgement Intact, Mood/Affect Appropiate, Orientated x3, Agitated, Anxious Other Systems: Reviewed and Negative Patient History - Patient Medical History Hx Anemia: No Hx Asthma: No Hx Chronic Obstructive Pulmonary Disease (COPD): No Hx Cancer: No Hx Cardiac Disorders: No Hx Congestive Heart Failure: No Hx Hypertension: Yes (on meds.) Hx Hypercholesterolemia: No Hx Pacemaker: No HX Cerebrovascular Accident: No Hx Seizures: No Hx Dementia: No Hx Diabetes: No Hx Gastrointestinal Disorders: No Hx Liver Disease: Yes Hx Genitourinary Disorders: No Hx Sexually Transmitted Disorders: No Hx Renal Disease (ESRD): No Hx Thyroid Disease: No Hx Human Immunodeficiency Virus (HIV): No (negative a yr ago) Hx Hepatitis C: Yes (NEEDS TREATMENT) Hx Depression: Yes Hx Suicide Attempt: No Hx Bipolar Disorder: Yes Hx Schizophrenia: No - Patient Surgical History Past Surgical History: Yes Hx Neurologic Surgery: No Hx Cataract Extraction: No Hx Cardiac Surgery: No Hx Lung Surgery: No Hx Breast Surgery: No Hx Breast Biopsy: No Hx Abdominal Surgery: No Hx Appendectomy: No Hx Cholecystectomy: No Hx Genitourinary Surgery: No Hx Section: No Hx Orthopedic Surgery: Yes (R hip sx at age 5/left knee at age 7) Other Surgical History: cyst removed from right knee at age 16 Anesthesia Reaction: No - PPD History Previous Implant?: Yes Documented Results: Negative w/proof Implanted On Prior [facility] Admission?: Yes Date: 06/14/16 Results: 0 mm PPD to be Administered?: No - Reproductive History Patient is a Female of Child Bearing Age (11 -55 yrs old): No - Smoking Cessation Smoking history: Current every day smoker Have you smoked in the past 12 months: Yes Aproximately how many cigarettes per day: 8 Cigars Per Day: 0 Hx Chewing Tobacco Use: No Initiated information on smoking cessation: Yes 'Breaking Loose' booklet given: 11/11/16 - Substance & Tx. History Hx Alcohol Use: Yes Substance Use Type: Alcohol Hx Substance Use Treatment: Yes (last detox [facility] 2017) - Substances Abused Alcohol Route: Oral Frequency: Daily Amount used: 10 24 OZ BEERS Age of first use: 17 Date of Last Use: 11/11/16 Family Disease History - Family Disease History Family Disease History: Other: Father (COCAINE AND ALCOHOL), Mother (ALCOHOL) Admission Physical Exam B[facility] - Vital Signs Vital Signs: Vital Signs - 24 hr 11/11/16 11:09 Temperature 97.8 F Pulse Rate 87 Respiratory 20 Rate Blood Pressure 125/76 - Physical General Appearance: Yes: Appropriately Dressed, Moderate Distress, Obese, Tremorous, Irritable, Sweating, Anxious HEENTM: Yes: Hearing grossly Normal, Normal Voice Respiratory: Yes: Lungs Clear, Normal Breath Sounds, No Respiratory Distress Neck: Yes: Within Normal Limits Breast: Yes: Within Normal Limits Cardiology: Yes: Regular Rhythm, Regular Rate, S1, S2 Abdominal: Yes: Normal Bowel Sounds, Non Tender, Soft Genitourinary: Yes: Within Normal Limits Back: Yes: Normal Inspection Musculoskeletal: Yes: Within Normal Limits Extremities: Yes: Normal Capillary Refill, Normal Inspection, Tremors Neurological: Yes: Fully Oriented, Alert, Normal Response Integumentary: Yes: Normal Color, Diaphoresis Lymphatic: Yes: Within Normal Limits - Diagnostic (1) Alcohol dependence with uncomplicated intoxication Current Visit: Yes Status: Chronic (2) Essential hypertension Current Visit: Yes Status: Chronic (3) Methadone maintenance therapy patient Current Visit: Yes Status: Chronic Comment: 15 MG was last taken today verification done. (4) Hepatitis C Current Visit: No Status: Chronic Qualifiers: Viral hepatitis chronicity: chronic Hepatic coma status: without hepatic coma Qualified Code(s): B18.2 - Chronic viral hepatitis C Comment: SCHEDULED FOR TREATMENT Cleared for Admission [facility] - Detox or Rehab [facility] Level of Care: Medically Managed Detox Regimen/Protocol: Librium [facility] Breath Alcohol Content Breath Alcohol Content: 0.186 Urine Drug Screen - Results Drug Screen Negative: No Urine Drug Screen Results: MTD-Methadone
[2016-11-11] MEDS ORDERED: MENTHOL/PHENOL 1 EACH UD MM PRN (14:27)
[2016-11-11] MEDS ORDERED: P-EPHED 60MG/TRIPROLIDI 2.5MG TABLET PO PRN (14:27)
[2016-11-11] MEDS ORDERED: MAGNESIUM CITRATE 300 ML BOTTLE PO PRN (14:27)
[2016-11-11] MEDS ORDERED: NICOTINE POLACRILEX 4 MG GUM BC PRN (14:27)
[2016-11-11] MEDS ORDERED: MAGNESIUM HYDROX 2400MG/30ML ORAL SUSPENSION 30 ML CUP PO PRN (14:27)
[2016-11-11] MEDS ORDERED: guaiFENesin/D-METHORPHAN HB 10 ML UNIT-DOSE CUPS PO PRN (14:27)
[2016-11-11] MEDS ORDERED: LOPERAMIDE HCL 2 MG CAPSULE PO PRN (14:27)
[2016-11-11] MEDS ORDERED: hydrOXYzine PAMOATE 50 MG CAPSULE (FP) PO PRN (14:27)
[2016-11-11] MEDS ORDERED: chlordiazePOXIDE HCL 25 MG CAPSULE PO PRN (14:27)
[2016-11-11] MEDS ORDERED: chlordiazePOXIDE HCL 25 MG CAPSULE PO ONE (15:00)
--- NOTE | 2016-11-11 17:07 | EKG ---
Test Reason : Blood Pressure : / mmHG Vent. Rate : 083 BPM Atrial Rate : 083 BPM P-R Int : 140 ms QRS Dur : 086 ms QT Int : 394 ms P-R-T Axes : 061 021 027 degrees QTc Int : 462 ms NORMAL SINUS RHYTHM POSSIBLE LEFT ATRIAL ENLARGEMENT INCOMPLETE RBBB WHEN COMPARED WITH ECG OF 12-JUN-2016 20:31, INCOMPLETE RIGHT BUNDLE BRANCH BLOCK Confirmed by SINDY NERI MD ([id number]) on 11/11/2016 5:07:27 PM Referred By: Micheal Garza Confirmed By:SINDY NERI MD
[2016-11-11] MEDS: chlordiazePOXIDE HCL 25 MG CAPSULE PO SCH ×2 (17:23→22:29)
[2016-11-11 22:26] LABS: URINE APPEARANCE CLEAR; URINE BILIRUBIN NEGATIVE (NEGATIVE); URINE BLOOD NEGATIVE (NEGATIVE); URINE COLOR LTYELLOW; URINE GLUCOSE (UA) NEGATIVE (NEGATIVE); URINE KETONE NEGATIVE (NEGATIVE); URINE LEUK ESTERASE NEGATIVE (NEGATIVE); URINE NITRITE NEGATIVE (NEGATIVE); URINE PROTEIN NEGATIVE (NEGATIVE); URINE UROBILINOGEN NEGATIVE mg/dL (0.2-1.0)
[2016-11-11] MEDS: THIAMINE HCL 100 MG TABLET (FP) PO SCH (22:28)
[2016-11-12] MEDS: METHADONE HCL 5 MG TABLET PO SCH (06:03)
[2016-11-12] MEDS: chlordiazePOXIDE HCL 25 MG CAPSULE PO SCH ×4 (06:03→22:23)
[2016-11-12 09:58] LABS: MCH 33.5 pg (25.7-33.7); MCHC 33.3 g/dl (32.0-35.9); MEAN CELL VOLUME 100.6 fl (80-96); MEAN PLT VOLUME 11.2 fl (7.5-11.1); PLATELET COUNT 42 K/MM3 (134-434); WHITE BLOOD COUNT 2.7 K/mm3 (4.0-10.0)
[2016-11-12] MEDS: IBUPROFEN 600 MG TABLET (FP) PO SCH (10:25)
[2016-11-12] MEDS: PRENATAL VITAMINS W/ FOLIC ACID TABLET (FP) PO SCH (10:25)
[2016-11-12] MEDS: ASPIRIN 81 MG CHEWABLE TABLETS PO SCH (10:25)
[2016-11-12] MEDS: HYDROCHLOROTHIAZIDE 25 MG TABLET (FP) PO SCH (10:26)
[2016-11-12] MEDS: NICOTINE 21 MG/24 HOURS TOPICAL PATCH TD SCH (10:26)
[2016-11-12] MEDS: PROPRANOLOL HCL 20 MG TABLET PO SCH (10:27)
[2016-11-12] MEDS: BACLOFEN 10 MG TABLET (FP) PO SCH (10:27)
[2016-11-12 10:44] LABS: ALBUMIN 3.1 g/dl (3.4-5.0); ALK PHOS 122 U/L (45-117); ANION GAP 8 (8-16); CO2 29 mmol/L (21-32); CREATININE 0.8 mg/dL (0.7-1.3); GLUCOSE,RANDOM 126 mg/dL (74-106); SGOT/AST 103 U/L (15-37); SGPT/ALT 80 U/L (12-78); TOT PROT 6.2 g/dl (6.4-8.2)
--- NOTE | 2016-11-12 12:09 | PN ---
[facility] CIWA - CIWA Score Nausea/Vomitin-No Nausea/No Vomiting Muscle Tremors: 4-Moderate,w/Arms Extend Anxiety: 5 Agitation: 4-Moderately Restless Paroxysmal Sweats: 1-Minimal Palms Moist Orientation: 0-Oriented Tacttile Disturbances: 3-Moderate Itch/Numb/Burn Auditory Disturbances: 0-None Visual Disturbances: 0-None Headache: 0-None Present CIWA-Ar Total Score: 17 S Progress Note (SOAP) Subjective: ANXIETY, SLIGHT TREMORS, BODY ACHES/LEFT ANKLE PAIN,INTERMITTENT SLEEP. PT HAS CHRONIC LEFT ANKLE DEFORMATION AND STATES HIS DOCTOR ADVISED HIM TO CLEAN UP AND BE SOBER FOR SX OF THAT ANKLE-- "THAT'S WHY I'M HERE TO CLEAN UP SO I CAN GO BACK TO MY DOCTOR". Objective: 11/12/16 12:08 Vital Signs Temperature 95.3 F L 11/12/16 09:35 Pulse Rate 108 H 11/12/16 09:35 Respiratory Rate 18 11/12/16 09:35 Blood Pressure 132/85 11/12/16 09:35 O2 Sat by Pulse Oximetry (%) Laboratory Last Values WBC 2.7 K/mm3 (4.0-10.0) L D 11/12/16 06:00 RBC 3.67 M/mm3 (4.00-5.60) L 11/12/16 06:00 Hgb 12.3 GM/dL (11.7-16.9) 11/12/16 06:00 Hct 36.9 % (35.4-49) 11/12/16 06:00 MCV 100.6 fl (80-96) H 11/12/16 06:00 MCH 33.5 pg (25.7-33.7) 11/12/16 06:00 MCHC 33.3 g/dl (32.0-35.9) 11/12/16 06:00 RDW 15.0 % (11.9-15.9) 11/12/16 06:00 Plt Count 42 K/MM3 (134-434) L D 11/12/16 06:00 MPV 11.2 fl (7.5-11.1) H D 11/12/16 06:00 Sodium 141 mmol/L (136-145) 11/12/16 06:00 Potassium 4.0 mmol/L (3.5-5.1) 11/12/16 06:00 Chloride 104 mmol/L (98-107) 11/12/16 06:00 Carbon Dioxide 29 mmol/L (21-32) 11/12/16 06:00 Anion Gap 8 (8-16) 11/12/16 06:00 BUN 9 mg/dL (7-18) 11/12/16 06:00 Creatinine 0.8 mg/dL (0.7-1.3) 11/12/16 06:00 Creat Clearance w eGFR > 60 (>60) 11/12/16 06:00 Random Glucose 126 mg/dL (74-106) H D 11/12/16 06:00 Calcium 8.0 mg/dL (8.5-10.1) L 11/12/16 06:00 Total Bilirubin 2.0 mg/dL (0.2-1.0) H D 11/12/16 06:00 AST 103 U/L (15-37) H D 11/12/16 06:00 ALT 80 U/L (12-78) H D 11/12/16 06:00 Alkaline Phosphatase 122 U/L (45-117) H D 11/12/16 06:00 Total Protein 6.2 g/dl (6.4-8.2) L 11/12/16 06:00 Albumin 3.1 g/dl (3.4-5.0) L D 11/12/16 06:00 Urine Color Ltyellow 11/11/16 21:57 Urine Appearance Clear 11/11/16 21:57 Urine pH 6.0 (5.0-8.0) 11/11/16 21:57 Ur Specific [place] <= 1.005 (1.005-1.025) 11/11/16 21:57 Urine Protein Negative (NEGATIVE) 11/11/16 21:57 Urine Glucose (UA) Negative (NEGATIVE) 11/11/16 21:57 Urine Ketones Negative (NEGATIVE) 11/11/16 21:57 Urine Blood Negative (NEGATIVE) 11/11/16 21:57 Urine Nitrite Negative (NEGATIVE) 11/11/16 21:57 Urine Bilirubin Negative (NEGATIVE) 11/11/16 21:57 Urine Urobilinogen Negative mg/dL (0.2-1.0) 11/11/16 21:57 Ur Leukocyte Esterase Negative (NEGATIVE) 11/11/16 21:57 RPR Titer Nonreactive (NONREACTIVE) 11/12/16 06:00 Assessment: 11/12/16 12:08 WITHDRAWAL SX Plan: CONTINUE DETOX KIMANI BANDAGE TO LEFT ANKLE FOR SUPPORT. PT PLANS TO F/U WITH PMD AFTER DETOX FOR ORTHOPEDIC CARE.
--- NOTE | 2016-11-12 13:54 | CONSULT ---
[facility] Psychiatric Consult - Data Date of interview: 11/12/16 Admission source: [facility] Identifying data: Readmission to [facility] for this 56 y/o male seeking detox treatment for heroin and alcohol dependence.Patient is single,a father of two,domiciled,unemployed (disabled) and supported on SSI benefits. Substance Abuse History: Patient confirmed this report. Smoking Cessation. Smoking history: Current every day smoker. Have you smoked in the past 12 months: Yes. Aproximately how many cigarettes per day: 8. Cigars Per Day: 0. Hx Chewing Tobacco Use: No. Initiated information on smoking cessation: Yes. ' Breaking Loose' booklet given: 11/11/16. - Substance & Tx. History. Hx Alcohol Use: Yes. Substance Use Type: Alcohol. Hx Substance Use Treatment: Yes (last detox [facility] 2016). - Substances Abused. Alcohol. Route: Oral. Frequency: Daily. Amount used: 10 24 OZ BEERS. Age of first use: 17. Date of Last Use: 11/11/16 Medical History: Hepatitis C,hypertension,arthritis,hip pain,right inguinal hernia,umbilical hernia and a distant history of orthosurgery (right hip at age [age]) and left knee (age [age]). Psychiatric History: Patient denies history of psychiatric hospitalizations.Diagnosed with Impulse Control Disorder.No longer on risperdal but,as per pharmacy claims of 11/03/16,the patient is still prescribed sertraline 100 mg/day + depakote ER 1000 mg/hs.OPD care continues to be rendered at the [facility] mental [facility].Mr Conway is also on methadone maintenance (15 mg/day) at the [facility] in [facility].Patient denies history of suicide attempts. Physical/Sexual Abuse/Trauma History: No reported history of abuse. Additional Comment: Urine Drug Screen Results: MTD-Methadone.Noted. Mental Status Exam - Mental Status Exam Alert and Oriented to: Time, Place, Person Cognitive Function: Grossly Intact Patient Appearance: Well Groomed Mood: Nervous, Withdrawn Affect: Mood Congruent Patient Behavior: Sedated (light sedation), Fatigued Speech Pattern: Delayed, Slurred Voice Loudness: Moderately Soft/Quiet Thought Process: Goal Oriented Thought Disorder: Not Present Hallucinations: Denies Suicidal Ideation: Denies Homicidal Ideation: Denies Insight/Judgement: Poor Sleep: Well Appetite: Good Gait/Station: Other (not observed : patient is resting in bed) Psychiatric Findings - Problem List ([place] 1, 2,3) (1) Alcohol dependence with withdrawal, uncomplicated Current Visit: Yes Status: Acute (2) Opioid dependence on agonist therapy Current Visit: Yes Status: Acute (3) Nicotine dependence Current Visit: No Status: Acute Qualifiers: Nicotine product type: cigarettes Substance use status: in withdrawal Qualified Code(s): F17.213 - Nicotine dependence, cigarettes, with withdrawal (4) Substance induced mood disorder Current Visit: Yes Status: Acute (5) MDD (major depressive disorder) Current Visit: Yes Status: Chronic (6) Impulse control disorder Current Visit: No Status: Chronic (7) Essential hypertension Current Visit: Yes Status: Chronic (8) Thrombocytopenia Current Visit: Yes Status: Chronic (9) Arthritis of both knees Current Visit: Yes Status: Chronic (10) Hepatitis C Current Visit: Yes Status: Chronic Qualifiers: Viral hepatitis chronicity: chronic Hepatic coma status: without hepatic coma Qualified Code(s): B18.2 - Chronic viral hepatitis C Comment: SCHEDULED FOR TREATMENT (11) Umbilical hernia Current Visit: Yes Status: Chronic Comment: SCHEDULED FOR SURGICAL REPAIR (12) Leukopenia Current Visit: Yes Status: Chronic (13) Use of cane as ambulatory aid Current Visit: Yes Status: Chronic Comment: RIGHT HIP INJURY - Initial Treatment Plan Initial Treatment Plan: Psychoeducation.Detoxification.Zoloft 50 mg po daily.Side effects/benefits are discussed with the patient.Valproate is held in view of thrombocytopenia and leukopenia.Patient made aware.He is in agreement with this plan of care.Observation.NO scripts at discharge (refills already available from [facility]PD provider).
[2016-11-12] MEDS: THIAMINE HCL 100 MG TABLET (FP) PO SCH (22:23)
[2016-11-12] MEDS: diphenhydrAMINE HCL 50 MG CAPSULE PO PRN (22:24)
[2016-11-12] MEDS: ACETAMINOPHEN 325 MG TABLET (FP) PO PRN (22:27)
[2016-11-12] MEDS: MAG HYDROX/AL HYDROX/SIMETH 30 ML UNIT-DOSE CUP PO PRN (22:28)
[2016-11-13] MEDS: METHADONE HCL 5 MG TABLET PO SCH (05:53)
[2016-11-13] MEDS: chlordiazePOXIDE HCL 25 MG CAPSULE PO SCH ×2 (05:53→10:32)
[2016-11-13] MEDS: ACETAMINOPHEN 325 MG TABLET (FP) PO PRN (06:46)
[2016-11-13] MEDS ORDERED: SERTRALINE HCL 50 MG TABLET (FP) PO SCH (10:00)
[2016-11-13] MEDS: HYDROCHLOROTHIAZIDE 25 MG TABLET (FP) PO SCH (10:31)
[2016-11-13] MEDS: PRENATAL VITAMINS W/ FOLIC ACID TABLET (FP) PO SCH (10:31)
[2016-11-13] MEDS: IBUPROFEN 600 MG TABLET (FP) PO SCH (10:31)
[2016-11-13] MEDS: ASPIRIN 81 MG CHEWABLE TABLETS PO SCH (10:31)
[2016-11-13] MEDS: SERTRALINE HCL 50 MG TABLET (FP) PO SCH (10:32)
[2016-11-13] MEDS: NICOTINE 21 MG/24 HOURS TOPICAL PATCH TD SCH (10:32)
[2016-11-13] MEDS: PROPRANOLOL HCL 20 MG TABLET PO SCH (10:33)
[2016-11-13] MEDS: BACLOFEN 10 MG TABLET (FP) PO SCH (10:33)
--- NOTE | 2016-11-13 11:16 | PN ---
[facility] CIWA - CIWA Score Nausea/Vomitin-No Nausea/No Vomiting Muscle Tremors: 5 Anxiety: 4-Mod. Anxious/Guarded Agitation: 3 Paroxysmal Sweats: 1-Minimal Palms Moist Orientation: 0-Oriented Tacttile Disturbances: 3-Moderate Itch/Numb/Burn Auditory Disturbances: 0-None Visual Disturbances: 0-None Headache: 0-None Present CIWA-Ar Total Score: 16 BHS Progress Note (SOAP) Subjective: Fatigue, Tremors, Anxious. Objective: PT. A & O X 3, OBSERVED AMBULATING ON UNIT. NO ACUTE DISTRESS. 11/13/16 11:16 Vital Signs Temperature 96.1 F L 11/13/16 09:47 Pulse Rate 73 11/13/16 09:47 Respiratory Rate 18 11/13/16 09:47 Blood Pressure 111/65 11/13/16 09:47 O2 Sat by Pulse Oximetry (%) Laboratory Tests 11/11/16 11/12/16 11/12/16 21:57 06:00 06:00 WBC 2.7 L D RBC 3.67 L Hgb 12.3 Hct 36.9 MCV 100.6 H MCH 33.5 MCHC 33.3 RDW 15.0 Plt Count 42 L D MPV 11.2 H D Sodium 141 Potassium 4.0 Chloride 104 Carbon Dioxide 29 Anion Gap 8 BUN 9 Creatinine 0.8 Creat Clearance w eGFR > 60 Random Glucose 126 H D Calcium 8.0 L Total Bilirubin 2.0 H D AST 103 H D ALT 80 H D Alkaline Phosphatase 122 H D Total Protein 6.2 L Albumin 3.1 L D Urine Color Ltyellow Urine Appearance Clear Urine pH 6.0 Ur Specific [place] <= 1.005 Urine Protein Negative Urine Glucose (UA) Negative Urine Ketones Negative Urine Blood Negative Urine Nitrite Negative Urine Bilirubin Negative Urine Urobilinogen Negative Ur Leukocyte Esterase Negative RPR Titer 11/12/16 06:00 WBC RBC Hgb Hct MCV MCH MCHC RDW Plt Count MPV Sodium Potassium Chloride Carbon Dioxide Anion Gap BUN Creatinine Creat Clearance w eGFR Random Glucose Calcium Total Bilirubin AST ALT Alkaline Phosphatase Total Protein Albumin Urine Color Urine Appearance Urine pH Ur Specific [place] Urine Protein Urine Glucose (UA) Urine Ketones Urine Blood Urine Nitrite Urine Bilirubin Urine Urobilinogen Ur Leukocyte Esterase RPR Titer Nonreactive LABS NOTED. Assessment: 11/13/16 11:17 WITHDRAWAL SYMPTOMS. Plan: CONTINUE DETOX. REPEAT CBC AND HEPATIC FUNCTION PANEL ON 11/14/2016 FOR ABNORMAL ADMISSION VALUES. BGM ACBK FOR ELEVATED ADMISSION RANDOM GLUCOSE LEVEL. INCREASE DAILY PO FLUID INTAKE.
[2016-11-13] MEDS: chlordiazePOXIDE 5 MG CAPSULE PO SCH ×2 (17:39→22:38)
[2016-11-13] MEDS: diphenhydrAMINE HCL 50 MG CAPSULE PO PRN (22:38)
[2016-11-13] MEDS: THIAMINE HCL 100 MG TABLET (FP) PO SCH (22:38)
[2016-11-14] MEDS: chlordiazePOXIDE 5 MG CAPSULE PO SCH ×2 (05:52→10:45)
[2016-11-14] MEDS: METHADONE HCL 5 MG TABLET PO SCH (05:53)
--- NOTE | 2016-11-14 09:27 | PN ---
S CIWA - CIWA Score Nausea/Vomitin Muscle Tremors: 4-Moderate,w/Arms Extend Anxiety: 3 Agitation: 3 Paroxysmal Sweats: 3 Orientation: 4Disoriented Place/Person Tacttile Disturbances: 0-None Auditory Disturbances: 0-None Visual Disturbances: 0-None Headache: 0-None Present CIWA-Ar Total Score: 19 BHS Progress Note (SOAP) Subjective: Tremors, Stomach Cramping, H/A, Body Aches, Sweating. Objective: PT. A & O X 1 (DISORIENTED ABOUT DAY / DATE AND ABOUT CURRENT LOCATION, NOTE: PATIENT REPORTS THAT HE HAS HAD A HISTORY OF POOR MEMORY FOR SOME TIME NOW). PATIENT OBSERVED AMBULATING ON UNIT WITH ASSISTANCE OF A CANE. NO ACUTE DISTRESS. 11/14/16 09:21 Vital Signs Temperature 96.5 F L 11/14/16 08:35 Pulse Rate 18 L 11/14/16 08:35 Respiratory Rate 18 11/14/16 08:35 Blood Pressure 117/74 11/14/16 08:35 O2 Sat by Pulse Oximetry (%) Laboratory Tests 11/11/16 11/12/16 11/12/16 21:57 06:00 06:00 WBC 2.7 L D RBC 3.67 L Hgb 12.3 Hct 36.9 MCV 100.6 H MCH 33.5 MCHC 33.3 RDW 15.0 Plt Count 42 L D MPV 11.2 H D Sodium 141 Potassium 4.0 Chloride 104 Carbon Dioxide 29 Anion Gap 8 BUN 9 Creatinine 0.8 Creat Clearance w eGFR > 60 POC Glucometer Random Glucose 126 H D Calcium 8.0 L Total Bilirubin 2.0 H D AST 103 H D ALT 80 H D Alkaline Phosphatase 122 H D Total Protein 6.2 L Albumin 3.1 L D Urine Color Ltyellow Urine Appearance Clear Urine pH 6.0 Ur Specific [place] <= 1.005 Urine Protein Negative Urine Glucose (UA) Negative Urine Ketones Negative Urine Blood Negative Urine Nitrite Negative Urine Bilirubin Negative Urine Urobilinogen Negative Ur Leukocyte Esterase Negative Valproic Acid RPR Titer 11/12/16 11/13/16 11/14/16 06:00 06:00 06:40 WBC RBC Hgb Hct MCV MCH MCHC RDW Plt Count MPV Sodium Potassium Chloride Carbon Dioxide Anion Gap BUN Creatinine Creat Clearance w eGFR POC Glucometer 135 Random Glucose Calcium Total Bilirubin AST ALT Alkaline Phosphatase Total Protein Albumin Urine Color Urine Appearance Urine pH Ur Specific [place] Urine Protein Urine Glucose (UA) Urine Ketones Urine Blood Urine Nitrite Urine Bilirubin Urine Urobilinogen Ur Leukocyte Esterase Valproic Acid 5.184 L RPR Titer Nonreactive LABS NOTED. Assessment: 11/14/16 09:24 WITHDRAWAL SYMPTOMS. Plan: CONTINUE DETOX.
--- NOTE | 2016-11-14 09:39 | PN ---
[facility] Progress Note Note: Received report that pt. had fall in Dining Room. According to pt., he fell primarily on his left side, hitting his left arm and left leg. Pt. also hit left side of side of parietal aspect of head. Pt. denies LOC after fall; however , he reports that he felt a somewhat "dizzy" for a short while after fall. Visual inspection of patient's body reveals no bleeding or bruising. Pt. A & O X 1 Pt. is disoriented to day / date and to current location. However, pt. reports a history of poor memory for quite some time. BRIAN. Report given to Dr. Calderon at [facility]. FALL PROTOCOL # 1 IMPLEMENTED, including CT Scan of head without contrast. Pt. to be taken to [facility] for further evaluation. Milton De Guzman NP
[2016-11-14] MEDS: NICOTINE 21 MG/24 HOURS TOPICAL PATCH TD SCH (10:43)
[2016-11-14] MEDS: IBUPROFEN 600 MG TABLET (FP) PO SCH (10:44)
[2016-11-14] MEDS: SERTRALINE HCL 50 MG TABLET (FP) PO SCH (10:44)
[2016-11-14] MEDS: PRENATAL VITAMINS W/ FOLIC ACID TABLET (FP) PO SCH (10:44)
[2016-11-14] MEDS: HYDROCHLOROTHIAZIDE 25 MG TABLET (FP) PO SCH (10:44)
[2016-11-14] MEDS: PROPRANOLOL HCL 20 MG TABLET PO SCH (10:45)
[2016-11-14] MEDS: ASPIRIN 81 MG CHEWABLE TABLETS PO SCH (10:45)
[2016-11-14] MEDS: BACLOFEN 10 MG TABLET (FP) PO SCH (10:45)
[2016-11-14 13:42] LABS: BASOPHIL 0.6 % (0-2.0); MCH 34.1 pg (25.7-33.7); MCHC 33.7 g/dl (32.0-35.9); MEAN CELL VOLUME 101.4 fl (80-96); MEAN PLT VOLUME 11.2 fl (7.5-11.1); NEUTROPHILS 59.6 % (42.8-82.8); PLATELET COUNT 40 K/MM3 (134-434); RDW 14.5 % (11.9-15.9); WHITE BLOOD COUNT 3.6 K/mm3 (4.0-10.0)
[2016-11-14 13:47] LABS: ALBUMIN 2.8 g/dl (3.4-5.0); BILIRUBIN,DIRECT 0.7 mg/dL (0.0-0.2); BILIRUBIN,TOTAL 1.6 mg/dL (0.2-1.0); TOT PROT 5.7 g/dl (6.4-8.2)
[2016-11-14 14:02] LABS: INR 1.56 (0.82-1.09); PROTHROMBIN TIME (PATIENT) 17.3 SEC (9.98-11.88)
[2016-11-14 14:04] LABS: ACTIVATED PTT 37.8 SECONDS (26.9-34.4)
[2016-11-14] MEDS: chlordiazePOXIDE HCL 10 MG CAPSULE PO SCH ×2 (17:39→22:57)
--- NOTE | 2016-11-14 17:56 | PN ---
[facility] Progress Note Note: PT RETURNED FROM [facility]. ALERT O X 3. NAD. PT HESITATED FOR SOMETIMES WHILE DOWN IN ADMISSION NOT WANTING TO GO BACK UPSTAIRS STATING HE WANTS TO LEAVE. PT WAS SPOKEN TO BY THIS OPERATOR TECHNICIAN, CMA OR LPN ARTHUR [place] AND PT'S NURSE, GOMEZ NIETO ABOUT THE NEED TO GO BACK UP IN THE UNIT FOR OVERNIGHT MONITORING SINCE HE IS SCHEDULED TO BE DISCHARGED IN AM. PT AGREED STATING "I DON'T WANNA SIGN OUT AGAINST MEDICAL ADVICE". PT WAS TAKEN UPSTAIRS BY SECURITY. ALERT O X 3. NAD. AMBULATING BY SELF. CANE WITH PATIENT.
[2016-11-14] MEDS: MAG HYDROX/AL HYDROX/SIMETH 30 ML UNIT-DOSE CUP PO PRN (19:57)
[2016-11-14] MEDS: THIAMINE HCL 100 MG TABLET (FP) PO SCH (22:57)
[2016-11-15] MEDS: chlordiazePOXIDE HCL 10 MG CAPSULE PO SCH ×2 (07:22→10:35)
[2016-11-15] MEDS: METHADONE HCL 5 MG TABLET PO SCH (07:45)
[2016-11-15] MEDS: PRENATAL VITAMINS W/ FOLIC ACID TABLET (FP) PO SCH (10:34)
[2016-11-15] MEDS: ASPIRIN 81 MG CHEWABLE TABLETS PO SCH (10:34)
[2016-11-15] MEDS: BACLOFEN 10 MG TABLET (FP) PO SCH (10:34)
[2016-11-15] MEDS: HYDROCHLOROTHIAZIDE 25 MG TABLET (FP) PO SCH (10:34)
[2016-11-15] MEDS: PROPRANOLOL HCL 20 MG TABLET PO SCH (10:34)
[2016-11-15] MEDS: NICOTINE 21 MG/24 HOURS TOPICAL PATCH TD SCH (10:35)
[2016-11-15] MEDS: IBUPROFEN 600 MG TABLET (FP) PO SCH (10:35)
[2016-11-15] MEDS: SERTRALINE HCL 50 MG TABLET (FP) PO SCH (10:35)
[2016-11-15 10:46] VITALS: BP 119/72; PULSE 83; TEMP 97
--- NOTE | 2016-11-15 21:16 | DS ---
[facility] Detox Discharge Summary Admission Date: 11/11/16 Discharge Date: 11/15/16 - History Present History: Alcohol Dependence, MMTP Additional Comments: PATIENT GOING HOME. PATIENT ADVISED TO CONSIDER LOCAL OUTPATIENT 12-STEP / NA / AA SUPPORT GROUPS FOR FOLLOW-UP AFTERCARE. PATIENT OFFERED OPPORTUNITIES TO HAVE 30-DAY SUPPLY OF PRESCRIPTION MEDICATIONS THAT HE TOOK PRIOR TO ADMISSION TO DETOX, BUT PATIENT DECLINED. PATIENT WAS DISCHARGED FROM UNIT IN STABLE MEDICAL CONDITION. Pertinent Past History: HTN, Hep C, Thrombocytopenia, Leukocytopenia, Use of Cane as Ambulatory aid, Depression, MMTP, Arthritis of bilateral Knees. - Physical Exam Results Vital Signs: Vital Signs Temperature 97 F L 11/15/16 10:43 Pulse Rate 83 11/15/16 10:43 Respiratory Rate 16 11/15/16 10:43 Blood Pressure 119/72 11/15/16 10:43 O2 Sat by Pulse Oximetry (%) 97 11/14/16 09:53 Pertinent Admission Physical Exam Findings: WITHDRAWAL SYMPTOMS. Laboratory Tests 11/11/16 11/12/16 11/12/16 21:57 06:00 06:00 WBC 2.7 L D RBC 3.67 L Hgb 12.3 Hct 36.9 MCV 100.6 H MCH 33.5 MCHC 33.3 RDW 15.0 Plt Count 42 L D MPV 11.2 H D Neutrophils % Lymphocytes % Monocytes % Eosinophils % Basophils % INR PTT (Actin FS) Sodium 141 Potassium 4.0 Chloride 104 Carbon Dioxide 29 Anion Gap 8 BUN 9 Creatinine 0.8 Creat Clearance w eGFR > 60 POC Glucometer Random Glucose 126 H D Calcium 8.0 L Total Bilirubin 2.0 H D Direct Bilirubin AST 103 H D ALT 80 H D Alkaline Phosphatase 122 H D Total Protein 6.2 L Albumin 3.1 L D Urine Color Ltyellow Urine Appearance Clear Urine pH 6.0 Ur Specific [place] <= 1.005 Urine Protein Negative Urine Glucose (UA) Negative Urine Ketones Negative Urine Blood Negative Urine Nitrite Negative Urine Bilirubin Negative Urine Urobilinogen Negative Ur Leukocyte Esterase Negative Valproic Acid RPR Titer 11/12/16 11/13/16 11/14/16 06:00 06:00 06:40 WBC RBC Hgb Hct MCV MCH MCHC RDW Plt Count MPV Neutrophils % Lymphocytes % Monocytes % Eosinophils % Basophils % INR PTT (Actin FS) Sodium Potassium Chloride Carbon Dioxide Anion Gap BUN Creatinine Creat Clearance w eGFR POC Glucometer 135 Random Glucose Calcium Total Bilirubin Direct Bilirubin AST ALT Alkaline Phosphatase Total Protein Albumin Urine Color Urine Appearance Urine pH Ur Specific [place] Urine Protein Urine Glucose (UA) Urine Ketones Urine Blood Urine Nitrite Urine Bilirubin Urine Urobilinogen Ur Leukocyte Esterase Valproic Acid 5.184 L RPR Titer Nonreactive 11/14/16 11/14/16 11/14/16 09:49 10:45 10:45 WBC 3.6 L D RBC 3.70 L Hgb 12.6 Hct 37.5 MCV 101.4 H MCH 34.1 H MCHC 33.7 RDW 14.5 Plt Count 40 L MPV 11.2 H Neutrophils % 59.6 Lymphocytes % 19.6 Monocytes % 17.2 H Eosinophils % 3.0 Basophils % 0.6 INR PTT (Actin FS) Sodium Potassium Chloride Carbon Dioxide Anion Gap BUN Creatinine Creat Clearance w eGFR POC Glucometer 149 Random Glucose Calcium Total Bilirubin 1.6 H Direct Bilirubin 0.7 H AST 49 H D ALT 54 D Alkaline Phosphatase 131 H Total Protein 5.7 L Albumin 2.8 L Urine Color Urine Appearance Urine pH Ur Specific [place] Urine Protein Urine Glucose (UA) Urine Ketones Urine Blood Urine Nitrite Urine Bilirubin Urine Urobilinogen Ur Leukocyte Esterase Valproic Acid RPR Titer 11/14/16 11/15/16 10:45 06:43 WBC RBC Hgb Hct MCV MCH MCHC RDW Plt Count MPV Neutrophils % Lymphocytes % Monocytes % Eosinophils % Basophils % INR 1.56 H PTT (Actin FS) 37.8 H Sodium Potassium Chloride Carbon Dioxide Anion Gap BUN Creatinine Creat Clearance w eGFR POC Glucometer 130 Random Glucose Calcium Total Bilirubin Direct Bilirubin AST ALT Alkaline Phosphatase Total Protein Albumin Urine Color Urine Appearance Urine pH Ur Specific [place] Urine Protein Urine Glucose (UA) Urine Ketones Urine Blood Urine Nitrite Urine Bilirubin Urine Urobilinogen Ur Leukocyte Esterase Valproic Acid RPR Titer LABS NOTED. - Treatment Hospital Course: Detox Protocol Followed, Detoxed Safely, Responded well, Discharged Condition Good Patient has Accepted a Rehab Referral to: PT. GOING HOME. ADVISED TO CONSIDER 12 -STEP/AA/NA SUPPORT GROUPS. - Medication Discharge Medications: Ambulatory Orders Baclofen 10 mg PO DAILY 12/18/14 Multivitamins [Tab-A-Vit -] 1 tab PO DAILY 12/18/14 Hydrochlorothiazide [Hctz -] 25 mg PO DAILY tablet 06/16/16 Aspirin [ASA -] 81 mg PO DAILY #30 mg 07/14/16 Ibuprofen [Motrin -] 600 mg PO DAILY #30 mg 07/14/16 Propranolol HCl [Inderal -] 20 mg PO DAILY #30 tablet 07/14/16 Sertraline HCl [Zoloft -] 50 mg PO DAILY #30 tablet 07/14/16 - Diagnosis (1) Alcohol dependence with withdrawal, uncomplicated Status: Acute (2) Drug-induced mood disorder Status: Acute (3) Fall Status: Acute Qualifiers: Encounter type: initial encounter Qualified Code(s): W19.XXXA - Unspecified fall, initial encounter (4) Head injury Status: Acute Qualifiers: Encounter type: initial encounter Qualified Code(s): S09.90XA - Unspecified injury of head, initial encounter (5) Nicotine dependence Status: Chronic Qualifiers: Nicotine product type: cigarettes Substance use status: in withdrawal Qualified Code(s): F17.213 - Nicotine dependence, cigarettes, with withdrawal (6) Opioid dependence on agonist therapy Status: Chronic (7) Substance induced mood disorder Status: Acute (8) Arthritis of both knees Status: Chronic (9) Bipolar II disorder Status: Chronic (10) Essential hypertension Status: Chronic (11) Hepatitis C Status: Chronic Qualifiers: Viral hepatitis chronicity: chronic Hepatic coma status: without hepatic coma Qualified Code(s): B18.2 - Chronic viral hepatitis C (12) Impulse control disorder Status: Chronic (13) Leukopenia Status: Chronic Qualifiers: Leukopenia type: unspecified Qualified Code(s): D72.819 - Decreased white blood cell count, unspecified (14) MDD (major depressive disorder) Status: Chronic Qualifiers: Major depression recurrence: recurrent Active/Remission status: remission status unspecified Qualified Code(s): F33.9 - Major depressive disorder, recurrent, unspecified (15) Methadone maintenance therapy patient Status: Chronic (16) Thrombocytopenia Status: Chronic (17) Umbilical hernia Status: Chronic (18) Use of cane as ambulatory aid Status: Chronic (19) Rotator cuff dysfunction Status: Acute Qualifiers: Laterality: left Qualified Code(s): M67.912 - Unspecified disorder of synovium and tendon, left shoulder - AMA Did Patient Leave Against Medical Advice: No
== END 2016-11-15 12:18 | disposition home or self-care (01) | DRG 773 ==
LOC: YASAS 10:41 → Y3N 14:25
PROVIDERS: ADMIT Internal Medicine Addiction Medicine; ATTEND Internal Medicine Addiction Medicine
PROC: HZ2ZZZZ Detoxification Services for Substance Abuse Treatment (ICD-10-PCS; principal; 2016-11-11)
DX: F10.230 Alcohol dependence with withdrawal, uncomplicated (principal); F11.20 Opioid dependence, uncomplicated; F17.210 Nicotine dependence, cigarettes, uncomplicated; F19.24 Other psychoactive substance dependence with psychoactive substance-induced mood disorder; F31.81 Bipolar II disorder; F63.9 Impulse disorder, unspecified; F33.9 Major depressive disorder, recurrent, unspecified; M13.862 Other specified arthritis, left knee; M13.861 Other specified arthritis, right knee; I10 Essential (primary) hypertension; B18.2 Chronic viral hepatitis C; D72.819 Decreased white blood cell count, unspecified; D69.6 Thrombocytopenia, unspecified; R26.2 Difficulty in walking, not elsewhere classified; Z99.89 Dependence on other enabling machines and devices; M67.912 Unspecified disorder of synovium and tendon, left shoulder; M25.572 Pain in left ankle and joints of left foot; E66.9 Obesity, unspecified; Z68.29 Body mass index [BMI] 29.0-29.9, adult; S09.90XA Unspecified injury of head, initial encounter; W18.30XA Fall on same level, unspecified, initial encounter; Y93.89 Activity, other specified; Y92.233 Cafeteria of hospital as the place of occurrence of the external cause
CPT/HCPCS: 36415; 80053; 80076; 80164; 81003; 85025; 85027; 85610; 85730; 86593; 93005; 93010; J0475

== ENCOUNTER 2016-11-14 11:08 | Emergency (ER) | payer OTHER ==
--- NOTE | 2016-11-14 11:16 | PDOC ---
History of Present Illness <Ti Goetz - Last Filed: 11/14/16 14:39> - General History Source: Patient Exam Limitations: No Limitations - History of Present Illness Initial Comments: 11/14/16 12:33 The patient is a 56 year old male, with a significant past medical history of hypertension, low platelet count, bipolar disorder, depression, hepatitis C, alcohol dependence, opioid dependence, GI bleed, and multiple hernias who presents to the emergency department from [facility] s/p mechanical fall earlier this morning. The patient reports he was going to sit down on his chair, when he slipped, fell back, landed on his hips, left shoulder, and hit his head on the floor. He reports associated left shoulder pain, and initial hip pain which has now resolved. At the time of the fall, patient reports blurry vision, which he describes as double vision. He reports associated headache and lightheadedness. Patient is unsure if he lost consciousness, but states he needed assistance to get up after the fall. Patient was able to ambulate on his own after the fall. He denies any fever or chills. He denies any chest pain, shortness of breath, diaphoresis, or palpitations. He denies any abdominal pain , nausea, vomiting, diarrhea, constipation, or changes in urination patterns. Allergies: NKDA Past Surgical History: Right hip replacement, left knee replacement Social History: ETOH abuse (15-20 drinks per day). Current everyday smoker (5-6 cigarettes per day). <Ravindra Wyatt - Last Filed: 11/14/16 14:59> - General Chief Complaint: Injury Stated Complaint: FALL Past History - Past Medical History Anemia: No Asthma: No Cancer: No Cardiac Disorders: No CVA: No COPD: No CHF: No Dementia: No Diabetes: No GI Disorders: No Disorders: No HTN: Yes (on meds.) Hypercholesterolemia: No Kidney Stones: No Liver Disease: Yes Suicide Attempt (Hx): No Seizures: No Thyroid Disease: No - Surgical History Abdominal Surgery: No Appendectomy: No Cardiac Surgery: No Cholecystectomy: No Lung Surgery: No Neurologic Surgery: No Orthopedic Surgery: Yes (R hip sx at age 5/left knee at age 7) - Reproductive History Testicular Surgery: No - Psycho/Social/Smoking Cessation Hx Anxiety: Yes Suicidal Ideation: No Smoking History: Current every day smoker Have you smoked in the past 12 months: Yes Number of Cigarettes Smoked Daily: 8 Cigars Per Day: 0 'Breaking Loose' booklet given: 11/11/16 Hx Alcohol Use: Yes Drug/Substance Use Hx: Yes Substance Use Type: Alcohol Hx Substance Use Treatment: Yes (last detox [facility] 2016) <Ti Goetz - Last Filed: 11/14/16 14:39> <Ravindra Wyatt - Last Filed: 11/14/16 14:59> - Past Medical History Allergies/Adverse Reactions: Allergies Allergy/AdvReac Type Severity Reaction Status Date / Time No Known Allergies Allergy Verified 11/11/16 11:26 Home Medications: Ambulatory Orders Baclofen 10 mg PO DAILY 12/18/14 Multivitamins [Tab-A-Vit -] 1 tab PO DAILY 12/18/14 Hydrochlorothiazide [Hctz -] 25 mg PO DAILY tablet 06/16/16 Aspirin [ASA -] 81 mg PO DAILY #30 mg 07/14/16 Ibuprofen [Motrin -] 600 mg PO DAILY #30 mg 07/14/16 Propranolol HCl [Inderal -] 20 mg PO DAILY #30 tablet 07/14/16 Sertraline HCl [Zoloft -] 50 mg PO DAILY #30 tablet 07/14/16 Review of Systems - Review of Systems Able to Perform ROS?: Yes Comments:: 11/14/16 12:33 GENERAL/CONSTITUTIONAL: No fever or chills. No weakness. HEAD, EYES, EARS, NOSE AND THROAT: Yes: +blurry vision, +double vision. No ear pain or discharge. No sore throat. CARDIOVASCULAR: No chest pain or shortness of breath. RESPIRATORY: No cough, wheezing, or hemoptysis. GASTROINTESTINAL: No nausea, vomiting, diarrhea or constipation. GENITOURINARY: No dysuria, frequency, or change in urination. MUSCULOSKELETAL: Yes: +left shoulder pain, +hip pain. No joint or muscle swelling or pain. No neck or back pain. SKIN: No rash NEUROLOGIC: Yes: +headache, +lightheadedness. No vertigo, loss of consciousness , or change in strength/sensation. ENDOCRINE: No increased thirst. No abnormal weight change. HEMATOLOGIC/LYMPHATIC: No anemia, easy bleeding, or history of blood clots. ALLERGIC/IMMUNOLOGIC: No hives or skin allergy. <Ravindra Wyatt - Last Filed: 11/14/16 14:59> *Physical Exam - Vital Signs Last Vital Signs Temp Pulse Resp BP Pulse Ox 97.8 F 77 18 135/83 100 11/14/16 11:28 11/14/16 11:28 11/14/16 11:28 11/14/16 11:28 11/14/16 11:28 - Physical Exam Comments: 11/14/16 12:33 GENERAL: Awake, alert, and fully oriented, in no acute distress HEAD: No signs of trauma EYES: PERRLA, EOMI, sclera anicteric, conjunctiva clear ENT: Auricles normal inspection, hearing grossly normal, nares patent, oropharynx clear without exudates. Moist mucosa NECK: Normal ROM, supple, no lymphadenopathy, JVD, or masses LUNGS: Breath sounds equal, clear to auscultation bilaterally. No wheezes, and no crackles HEART: Regular rate and rhythm, normal S1 and S2, no murmurs, rubs or gallops ABDOMEN: Soft, nontender, normoactive bowel sounds. No guarding, no rebound. No masses EXTREMITIES: Limited ROM to the left shoulder, but no ecchymosis or deformities. Otherwise Normal range of motion to the other extremities, no edema. No clubbing or cyanosis. No cords, erythema, or tenderness NEUROLOGICAL: Cranial nerves II through XII grossly intact. Normal speech, normal gait SKIN: Warm, Dry, normal turgor, no rashes or lesions noted. <Ravindra Wyatt - Last Filed: 11/14/16 14:59> ED Treatment Course - RADIOLOGY Radiograph Interpretation: 11/14/16 14:55 EXAM: Head CT INTERPRETED BY: Dr. Tolentino REVIEWED BY: Dr. Goetz IMPRESSION: Moderate atrophy and ventricular dilatation with possible mild chronic microvascular ischemic changes. No gross acute intracranial pathology is identified. Correlate clinically to determine further evaluation. EXAM: Left shoulder X-Ray INTERPRETED BY: Dr. Anguiano REVIEWED BY: Dr. Goetz IMPRESSION: High riding humeral head concerning for rotator cuff tear. Corticated calcification at the lateral margin of the glenoid suspected to be chronic and CT could further evaluate for possible acute injury. EXAM: Right and left hip X-Ray INTERPRETED BY: Dr. Anguiano REVIEWED BY: Dr. Goetz IMPRESSION: Marked deformity of the right proximal femur as discussed above consistent with chronic process such as with old AVN and there are associated advanced degenerative changes. These changes can be further evaluated with MRI as clinically indicated. No definite acute fracture is seen. See above. EXAM: Pelvic X-Ray INTERPRETED BY: Dr. Anguiano REVIEWED BY: Dr. Goetz IMPRESSION: Pelvis: No acute fracture or dislocation is seen pelvis. There are some degenerative changes of the visualized lower lumbar spine. There is osteopenia. <Ravindra Wyatt - Last Filed: 11/14/16 14:59> *DC/Admit/Observation/Transfer - Discharge Dispostion Admit: No - Attestations Physician Attestion: 11/14/16 11:16 I, Dr. Ti Goetz, attest that this document has been prepared under my direction and personally reviewed by me in its entirety. I further attest, that it accurately reflects all work, treatment, procedures and medical decision -making performed by me. <Ti Goetz - Last Filed: 11/14/16 14:39> - Attestations Scribe Attestion: 11/14/16 12:34 Documentation prepared by Ravindra Wyatt, acting as director medical surgical for Ti Goetz DO. <Ravindra Wyatt - Last Filed: 11/14/16 14:59> Diagnosis at time of Disposition: Rotator cuff dysfunction, Thrombocytopenia Fall Qualifiers: Encounter type: initial encounter Qualified Code(s): W19.XXXA - Unspecified fall, initial encounter Head injury Qualifiers: Encounter type: initial encounter Qualified Code(s): S09.90XA - Unspecified injury of head, initial encounter - Patient Instructions Printed Discharge Instructions: DI for Closed Head Injury, DI for Rotator Cuff Injury, Immune Thrombocytopenia Purpura Additional Instructions: Srinivasa - All your tests are negative, Be a little more careful..... Best- Dr. Ti Goetz
[2016-11-14 11:36] VITALS: TEMP 97.8; BMI 29.8
[2016-11-14 16:49] VITALS: BP 113/68; PULSE 63
== END 2016-11-14 15:35 | disposition other institution (70) ==
LOC: JER 11:08
DX: S09.8XXA Other specified injuries of head, initial encounter (principal); M75.102 Unspecified rotator cuff tear or rupture of left shoulder, not specified as traumatic; W07.XXXA Fall from chair, initial encounter; Y93.89 Activity, other specified; Y92.238 Other place in hospital as the place of occurrence of the external cause; I10 Essential (primary) hypertension; F31.9 Bipolar disorder, unspecified; B18.2 Chronic viral hepatitis C; D69.6 Thrombocytopenia, unspecified; F10.20 Alcohol dependence, uncomplicated; F11.20 Opioid dependence, uncomplicated; F17.210 Nicotine dependence, cigarettes, uncomplicated
CPT/HCPCS: 70450-TC; 72170-TC; 73030-TC-LT; 73502-TC-LT; 73502-TC-RT; 99281-25

== ENCOUNTER 2016-12-18 14:58 | Inpatient (IN) | payer OTHER ==
[2016-12-18 17:23] VITALS: BMI 29.0
--- NOTE | 2016-12-18 17:48 | HP ---
CIWA Score - CIWA Score Nausea/Vomitin-Mild Nausea/No Vomiting Muscle Tremors: 4-Moderate,w/Arms Extend Anxiety: 4-Mod. Anxious/Guarded Agitation: 3 Paroxysmal Sweats: 1-Minimal Palms Moist Orientation: 1-Uncertain about Date Tacttile Disturbances: 0-None Auditory Disturbances: 0-None Visual Disturbances: 0-None Headache: 0-None Present CIWA-Ar Total Score: 14 Admission ROS BHS - HPI Chief Complaint: WITHDRAWAL SX Allergies/Adverse Reactions: Allergies Allergy/AdvReac Type Severity Reaction Status Date / Time No Known Allergies Allergy Verified 11/11/16 11:26 History of Present Illness: 56 YEARS OLD MALE WITH LONG HISTORY OF ALCOHOL NICOTINE DEPENDENCE, HAS CHRONIC SWELLING FEET SINCE AGE 5 "I FELL", HYPERTENSION GERD AND BIPOLAR II IS ADMITTED TO DETOX Exam Limitations: No Limitations - Ebola screening Have you traveled outside of the country in the last 21 days: No Have you had contact with anyone from an Ebola affected area: No Have you been sick,other than usual withdrawal symptoms: No Do you have a fever: No - Review of Systems Constitutional: Changes in sleep, Weight Stable EENT: reports: Blurred Vision (EYE GLASSES), Dental Problems Respiratory: reports: No Symptoms reported Cardiac: reports: No Symptoms Reported GI: reports: Nausea, Poor Fluid Intake, Indigestion, Abdominal cramping, Other ( UMBILICAL HERNIA) : reports: No Symptoms Reported Musculoskeletal: reports: Back Pain (CHRONIC BACK PAIN), Other (UNEVEN LEGS LENGTH) Integumentary: reports: No Symptoms Reported Neuro: reports: Tremors Endocrine: reports: No Symptoms Reported Hematology: reports: Easy Bleeding (LOW PLATELETS LOW WHITE BLOOD CELL) Psychiatric: reports: Judgement Intact, Anxious, Depressed Other Systems: Reviewed and Negative Patient History - Patient Medical History Hx Anemia: No Hx Asthma: No Hx Chronic Obstructive Pulmonary Disease (COPD): No Hx Cancer: No Hx Cardiac Disorders: No Hx Congestive Heart Failure: No Hx Hypertension: Yes (on meds.) Hx Hypercholesterolemia: No Hx Pacemaker: No HX Cerebrovascular Accident: No Hx Seizures: No Hx Dementia: No Hx Diabetes: No Hx Gastrointestinal Disorders: Yes Hx Liver Disease: Yes Hx Genitourinary Disorders: No Hx Sexually Transmitted Disorders: No Hx Renal Disease (ESRD): No Hx Thyroid Disease: No Hx Human Immunodeficiency Virus (HIV): No (negative a yr ago) Hx Hepatitis C: Yes (NEEDS TREATMENT) Hx Depression: No Hx Suicide Attempt: No Hx Bipolar Disorder: Yes Hx Schizophrenia: No - Patient Surgical History Past Surgical History: Yes Hx Neurologic Surgery: No Hx Cataract Extraction: No Hx Cardiac Surgery: No Hx Lung Surgery: No Hx Breast Surgery: No Hx Breast Biopsy: No Hx Abdominal Surgery: No Hx Appendectomy: No Hx Cholecystectomy: No Hx Genitourinary Surgery: No Hx Orthopedic Surgery: Yes (R hip sx at age 5/left knee at age 7) Other Surgical History: cyst removed from right knee at age 16 Anesthesia Reaction: No - PPD History Previous Implant?: Yes Documented Results: Negative w/proof Implanted On Prior [facility] Admission?: Yes Date: 06/14/16 Results: 0 mm PPD to be Administered?: No - Smoking Cessation Smoking history: Current every day smoker Have you smoked in the past 12 months: Yes Aproximately how many cigarettes per day: 8 Cigars Per Day: 0 Hx Chewing Tobacco Use: No Initiated information on smoking cessation: Yes 'Breaking Loose' booklet given: 12/18/16 - Substance & Tx. History Hx Alcohol Use: Yes Hx Substance Use: No Substance Use Type: Alcohol Hx Substance Use Treatment: Yes (11/11-11/15/16 [facility]) - Substances Abused Alcohol Route: Oral Frequency: Daily Amount used: [id number] Age of first use: 17 Date of Last Use: 12/18/16 Family Disease History - Family Disease History Family Disease History: Other: Father (COCAINE AND ALCOHOL), Mother (ALCOHOL/ ) Admission Physical Exam BHS - Vital Signs Vital Signs: Vital Signs - 24 hr 12/18/16 17:21 Temperature 96.8 F L Pulse Rate 90 Respiratory 18 Rate Blood Pressure 130/80 - Physical General Appearance: Yes: Nourished, Appropriately Dressed, Mild Distress, Alcohol on Breath, Tremorous, Irritable, Sweating, Anxious HEENTM: Yes: Hearing grossly Normal, Normal ENT Inspection, Normocephalic, Normal Voice, Other (DENTURE UPPER) Respiratory: Yes: Chest Non-Tender, Lungs Clear, Normal Breath Sounds, No Respiratory Distress, No Accessory Muscle Use Neck: Yes: Supple, Trachea in good position Breast: Yes: Breasts Symetrical Cardiology: Yes: Regular Rhythm, Regular Rate, S1, S2 Abdominal: Yes: Non Tender, Soft, Increased Bowel Sounds, Hernia (UMBILICAL) Genitourinary: Yes: Within Normal Limits Back: Yes: Normal Inspection Musculoskeletal: Yes: Gait Steady (CANE), Back pain, Joint Stiffness (LEFT FOOT) , Muscle Pain Extremities: Yes: Non-Tender, Tremors Neurological: Yes: Alert, Normal Response, Depressed Affect Integumentary: Yes: Warm Lymphatic: Yes: Within Normal Limits - Diagnostic (1) Alcohol dependence with withdrawal, uncomplicated Current Visit: Yes Status: Acute (2) Bipolar II disorder Current Visit: Yes Status: Suspected (3) Edema of lower extremity Current Visit: Yes Status: Chronic (4) Essential hypertension Current Visit: Yes Status: Chronic (5) Hepatitis C Current Visit: Yes Status: Resolved Qualifiers: Viral hepatitis chronicity: unspecified Hepatic coma status: without hepatic coma Qualified Code(s): B19.20 - Unspecified viral hepatitis C without hepatic coma; B19.20 - Unspecified viral hepatitis C without hepatic coma Comment: SCHEDULED FOR TREATMENT (6) Methadone maintenance therapy patient Current Visit: Yes Status: Chronic Comment: 15 MG VERIFICATION PENDING (7) Nicotine dependence Current Visit: Yes Status: Acute Qualifiers: Nicotine product type: cigarettes Substance use status: in withdrawal Qualified Code(s): F17.213 - Nicotine dependence, cigarettes, with withdrawal; F17.213 - Nicotine dependence, cigarettes, with withdrawal (8) Umbilical hernia Current Visit: No Status: Chronic Comment: SCHEDULED FOR SURGICAL REPAIR (9) Use of cane as ambulatory aid Current Visit: Yes Status: Chronic Comment: RIGHT HIP INJURY (10) GERD (gastroesophageal reflux disease) Current Visit: Yes Status: Chronic Qualifiers: Esophagitis presence: without esophagitis Qualified Code(s): K21.9 - Gastro-esophageal reflux disease without esophagitis; K21.9 - Gastro- esophageal reflux disease without esophagitis; K21.9 - Gastro-esophageal reflux disease without esophagitis Cleared for Admission BHS - Detox or Rehab [facility] Level of Care: Medically Managed Detox Regimen/Protocol: Librium [facility] Breath Alcohol Content Breath Alcohol Content: 0.135 Urine Drug Screen - Results Drug Screen Negative: No Urine Drug Screen Results: BZO-Benzodiazepines, MTD-Methadone
[2016-12-18] MEDS ORDERED: diphenhydrAMINE HCL 50 MG CAPSULE PO PRN (17:53)
[2016-12-18] MEDS ORDERED: MENTHOL/PHENOL 1 EACH UD MM PRN (17:53)
[2016-12-18] MEDS ORDERED: MAG HYDROX/AL HYDROX/SIMETH 30 ML UNIT-DOSE CUP PO PRN (17:53)
[2016-12-18] MEDS ORDERED: LOPERAMIDE HCL 2 MG CAPSULE PO PRN (17:53)
[2016-12-18] MEDS ORDERED: P-EPHED 60MG/TRIPROLIDI 2.5MG TABLET PO PRN (17:53)
[2016-12-18] MEDS ORDERED: NICOTINE POLACRILEX 2 MG GUM BC PRN (17:53)
[2016-12-18] MEDS ORDERED: MAGNESIUM CITRATE 300 ML BOTTLE PO PRN (17:53)
[2016-12-18] MEDS ORDERED: MAGNESIUM HYDROX 2400MG/30ML ORAL SUSPENSION 30 ML CUP PO PRN (17:53)
[2016-12-18] MEDS: THIAMINE HCL 100 MG TABLET (FP) PO SCH (21:23)
[2016-12-18] MEDS: RANITIDINE HCL 150 MG TABLET (FP) PO SCH (21:23)
[2016-12-18] MEDS: ACETAMINOPHEN 325 MG TABLET (FP) PO PRN (21:24)
[2016-12-18] MEDS: chlordiazePOXIDE HCL 25 MG CAPSULE PO SCH (23:31)
[2016-12-19] MEDS: chlordiazePOXIDE HCL 25 MG CAPSULE PO SCH ×5 (05:20→22:10)
--- NOTE | 2016-12-19 09:26 | EKG ---
Test Reason : Blood Pressure : / mmHG Vent. Rate : 075 BPM Atrial Rate : 075 BPM P-R Int : 116 ms QRS Dur : 078 ms QT Int : 390 ms P-R-T Axes : -29 028 024 degrees QTc Int : 435 ms NORMAL SINUS RHYTHM WHEN COMPARED WITH ECG OF 11-NOV-2016 15:26, ST NOW DEPRESSED IN ANTERIOR LEADS Confirmed by JAMES EDMONDS MD ([id number]) on 12/19/2016 9:25:33 AM Referred By: Confirmed By:JAMES EDMONDS MD
[2016-12-19 09:42] LABS: MCH 33.6 pg (25.7-33.7); MCHC 33.2 g/dl (32.0-35.9); MEAN CELL VOLUME 101.2 fl (80-96); MEAN PLT VOLUME 10.8 fl (7.5-11.1); PLATELET COUNT 43 K/MM3 (134-434)
[2016-12-19 10:11] LABS: ALBUMIN 2.9 g/dl (3.4-5.0); ALK PHOS 157 U/L (45-117); ANION GAP 8 (8-16); BILIRUBIN,TOTAL 2.5 mg/dL (0.2-1.0); CALCIUM 7.9 mg/dL (8.5-10.1); CO2 26 mmol/L (21-32); CREATININE 0.7 mg/dL (0.7-1.3); GLUCOSE,RANDOM 118 mg/dL (74-106); SGOT/AST 101 U/L (15-37); SGPT/ALT 78 U/L (12-78); TOT PROT 6.3 g/dl (6.4-8.2)
[2016-12-19] MEDS: RANITIDINE HCL 150 MG TABLET (FP) PO SCH ×2 (10:53→22:10)
[2016-12-19] MEDS: PRENATAL VITAMINS W/ FOLIC ACID TABLET (FP) PO SCH (10:53)
[2016-12-19] MEDS: METHADONE HCL 5 MG TABLET PO SCH (10:53)
[2016-12-19] MEDS: NICOTINE 14 MG/24 HOURS TOPICAL PATCH TD SCH (10:54)
[2016-12-19] MEDS: HYDROCHLOROTHIAZIDE 25 MG TABLET (FP) PO SCH (10:56)
--- NOTE | 2016-12-19 13:06 | PN ---
[facility] CIWA - CIWA Score Nausea/Vomitin-No Nausea/No Vomiting Muscle Tremors: 3 Anxiety: 4-Mod. Anxious/Guarded Agitation: 3 Paroxysmal Sweats: No Perspiration Orientation: 0-Oriented Tacttile Disturbances: 2-Mild Itch/Numbness/Burn Auditory Disturbances: 2-Mild Harshness/Frighten Visual Disturbances: 3-Moderate Sensitivity Headache: 0-None Present CIWA-Ar Total Score: 17 BHS Progress Note (SOAP) Subjective: Tremors, Stomach Cramping, Body aches, Diarrhea. Objective: PT. A & O X 2 (DISORIENTED ABOUT DAY / DATE). PT. OBSERVED AMBULATING ON UNIT. NO ACUTE DISTRESS. 12/19/16 13:03 Vital Signs Temperature 97.1 F L 12/19/16 10:02 Pulse Rate 79 12/19/16 10:02 Respiratory Rate 18 12/19/16 10:02 Blood Pressure 127/83 12/19/16 10:02 O2 Sat by Pulse Oximetry (%) Laboratory Tests 12/19/16 12/19/16 12/19/16 06:00 06:00 06:00 WBC 3.0 L RBC 3.74 L Hgb 12.6 Hct 37.9 MCV 101.2 H MCH 33.6 MCHC 33.2 RDW 16.0 H D Plt Count 43 L MPV 10.8 Sodium 140 Potassium 4.0 Chloride 106 Carbon Dioxide 26 Anion Gap 8 BUN 8 Creatinine 0.7 Creat Clearance w eGFR > 60 Random Glucose 118 H Calcium 7.9 L Total Bilirubin 2.5 H D AST 101 H D ALT 78 D Alkaline Phosphatase 157 H Total Protein 6.3 L Albumin 2.9 L Valproic Acid 5.078 L RPR Titer 12/19/16 06:00 WBC RBC Hgb Hct MCV MCH MCHC RDW Plt Count MPV Sodium Potassium Chloride Carbon Dioxide Anion Gap BUN Creatinine Creat Clearance w eGFR Random Glucose Calcium Total Bilirubin AST ALT Alkaline Phosphatase Total Protein Albumin Valproic Acid RPR Titer Nonreactive LABS NOTED. PATIENT HAS HAD LOW WBC AND RBC VALUES ON SEVERAL PREVIOUS ADMISSIONS. 12/19/16 13:07 Assessment: 12/19/16 13:05 WITHDRAWAL SYMPTOMS. NEUTROPENIA. Plan: CONTINUE DETOX. PRN IMMODIUM FOR DIARRHEA. HEPATIC FUNCTION PANEL ON 12/21/2016 FOR ABNORMAL ADMISSION HEPATIC LAB VALUES.
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
[2016-12-19] MEDS: BACLOFEN 10 MG TABLET (FP) PO PRN (18:57)
[2016-12-19] MEDS: THIAMINE HCL 100 MG TABLET (FP) PO SCH (22:09)
[2016-12-19] MEDS: ACETAMINOPHEN 325 MG TABLET (FP) PO PRN (22:11)
[2016-12-20] MEDS: METHADONE HCL 5 MG TABLET PO SCH (05:15)
[2016-12-20] MEDS: chlordiazePOXIDE HCL 25 MG CAPSULE PO SCH ×3 (05:15→17:13)
[2016-12-20] MEDS: HYDROCHLOROTHIAZIDE 25 MG TABLET (FP) PO SCH (10:49)
[2016-12-20] MEDS: PRENATAL VITAMINS W/ FOLIC ACID TABLET (FP) PO SCH (10:49)
[2016-12-20] MEDS: NICOTINE 14 MG/24 HOURS TOPICAL PATCH TD SCH (10:49)
[2016-12-20] MEDS: SERTRALINE HCL 50 MG TABLET (FP) PO SCH (10:49)
[2016-12-20] MEDS: RANITIDINE HCL 150 MG TABLET (FP) PO SCH ×2 (10:49→22:29)
[2016-12-20 10:59] LABS: URINE APPEARANCE SLCLOUDY; URINE BILIRUBIN NEGATIVE (NEGATIVE); URINE BLOOD NEGATIVE (NEGATIVE); URINE COLOR DKYELLOW; URINE GLUCOSE (UA) NEGATIVE (NEGATIVE); URINE KETONE NEGATIVE (NEGATIVE); URINE NITRITE NEGATIVE (NEGATIVE); URINE PROTEIN NEGATIVE (NEGATIVE); URINE UROBILINOGEN NEGATIVE mg/dL (0.2-1.0)
[2016-12-20] MEDS: guaiFENesin/D-METHORPHAN HB 10 ML UNIT-DOSE CUPS PO PRN (12:42)
--- NOTE | 2016-12-20 16:27 | PN ---
S CIWA - CIWA Score Nausea/Vomitin-No Nausea/No Vomiting Muscle Tremors: 3 Anxiety: 4-Mod. Anxious/Guarded Agitation: 3 Paroxysmal Sweats: 3 Orientation: 0-Oriented Tacttile Disturbances: 3-Moderate Itch/Numb/Burn Auditory Disturbances: 0-None Visual Disturbances: 0-None Headache: 0-None Present CIWA-Ar Total Score: 16 BHS Progress Note (SOAP) Subjective: Anxious, Tremors, Sweating. Objective: PT. A & O X 3, OBSERVED AMBULATING ON UNIT. NO ACUTE DISTRESS. PT. DENIES CHEST PAIN. 12/20/16 16:25 Vital Signs Temperature 97.4 F L 12/20/16 13:44 Pulse Rate 100 H 12/20/16 13:44 Respiratory Rate 18 12/20/16 13:44 Blood Pressure 143/80 12/20/16 13:44 O2 Sat by Pulse Oximetry (%) Laboratory Tests 12/19/16 12/19/16 12/19/16 06:00 06:00 06:00 WBC 3.0 L RBC 3.74 L Hgb 12.6 Hct 37.9 MCV 101.2 H MCH 33.6 MCHC 33.2 RDW 16.0 H D Plt Count 43 L MPV 10.8 Sodium 140 Potassium 4.0 Chloride 106 Carbon Dioxide 26 Anion Gap 8 BUN 8 Creatinine 0.7 Creat Clearance w eGFR > 60 Random Glucose 118 H Calcium 7.9 L Total Bilirubin 2.5 H D AST 101 H D ALT 78 D Alkaline Phosphatase 157 H Total Protein 6.3 L Albumin 2.9 L Urine Color Urine Appearance Urine pH Urine Protein Urine Glucose (UA) Urine Ketones Urine Blood Urine Nitrite Urine Bilirubin Urine Urobilinogen Valproic Acid 5.078 L RPR Titer 12/19/16 12/20/16 06:00 09:40 WBC RBC Hgb Hct MCV MCH MCHC RDW Plt Count MPV Sodium Potassium Chloride Carbon Dioxide Anion Gap BUN Creatinine Creat Clearance w eGFR Random Glucose Calcium Total Bilirubin AST ALT Alkaline Phosphatase Total Protein Albumin Urine Color Dkyellow Urine Appearance Slcloudy Urine pH 6.0 Urine Protein Negative Urine Glucose (UA) Negative Urine Ketones Negative Urine Blood Negative Urine Nitrite Negative Urine Bilirubin Negative Urine Urobilinogen Negative Valproic Acid RPR Titer Nonreactive LABS NOTED. Assessment: 12/20/16 16:26 WITHDRAWAL SYMPTOMS. Plan: CONTINUE DETOX.
[2016-12-20] MEDS: ACETAMINOPHEN 325 MG TABLET (FP) PO PRN ×2 (17:13→22:30)
[2016-12-20] MEDS: chlordiazePOXIDE HCL 25 MG CAPSULE PO PRN (20:21)
[2016-12-20 20:51] LABS: URINE LEUK ESTERASE Negative (NEGATIVE)
[2016-12-20] MEDS: THIAMINE HCL 100 MG TABLET (FP) PO SCH (22:29)
[2016-12-20] MEDS: BACLOFEN 10 MG TABLET (FP) PO PRN (22:29)
[2016-12-20] MEDS: chlordiazePOXIDE 5 MG CAPSULE PO SCH (22:33)
[2016-12-21] MEDS: chlordiazePOXIDE HCL 25 MG CAPSULE PO PRN (03:00)
[2016-12-21] MEDS: ACETAMINOPHEN 325 MG TABLET (FP) PO PRN ×2 (03:00→22:37)
[2016-12-21] MEDS: chlordiazePOXIDE 5 MG CAPSULE PO SCH ×3 (06:07→17:13)
[2016-12-21] MEDS: METHADONE HCL 5 MG TABLET PO SCH (06:07)
[2016-12-21] MEDS: RANITIDINE HCL 150 MG TABLET (FP) PO SCH ×2 (10:26→22:35)
[2016-12-21] MEDS: SERTRALINE HCL 50 MG TABLET (FP) PO SCH (10:26)
[2016-12-21] MEDS: HYDROCHLOROTHIAZIDE 25 MG TABLET (FP) PO SCH (10:26)
[2016-12-21] MEDS: NICOTINE 14 MG/24 HOURS TOPICAL PATCH TD SCH (10:26)
[2016-12-21] MEDS: PRENATAL VITAMINS W/ FOLIC ACID TABLET (FP) PO SCH (10:26)
[2016-12-21] MEDS: guaiFENesin/D-METHORPHAN HB 10 ML UNIT-DOSE CUPS PO PRN (10:27)
[2016-12-21 11:49] LABS: ALBUMIN 2.4 g/dl (3.4-5.0)
[2016-12-21 11:53] LABS: BILIRUBIN,DIRECT 0.8 mg/dL (0.0-0.2); BILIRUBIN,TOTAL 2.1 mg/dL (0.2-1.0); TOT PROT 5.5 g/dl (6.4-8.2)
--- NOTE | 2016-12-21 12:34 | PN ---
BHS Progress Note (SOAP) Subjective: SLIGHT ANXIETY,SWEATS,CHRONIC FEET/KNEE ACHE. Objective: 12/21/16 12:33 Vital Signs Temperature 96.3 F L 12/21/16 10:07 Pulse Rate 100 H 12/21/16 10:07 Respiratory Rate 20 12/21/16 10:07 Blood Pressure 132/76 12/21/16 10:07 O2 Sat by Pulse Oximetry (%) Laboratory Last Values WBC 3.0 K/mm3 (4.0-10.0) L 12/19/16 06:00 RBC 3.74 M/mm3 (4.00-5.60) L 12/19/16 06:00 Hgb 12.6 GM/dL (11.7-16.9) 12/19/16 06:00 Hct 37.9 % (35.4-49) 12/19/16 06:00 MCV 101.2 fl (80-96) H 12/19/16 06:00 MCH 33.6 pg (25.7-33.7) 12/19/16 06:00 MCHC 33.2 g/dl (32.0-35.9) 12/19/16 06:00 RDW 16.0 % (11.9-15.9) H D 12/19/16 06:00 Plt Count 43 K/MM3 (134-434) L 12/19/16 06:00 MPV 10.8 fl (7.5-11.1) 12/19/16 06:00 Sodium 140 mmol/L (136-145) 12/19/16 06:00 Potassium 4.0 mmol/L (3.5-5.1) 12/19/16 06:00 Chloride 106 mmol/L (98-107) 12/19/16 06:00 Carbon Dioxide 26 mmol/L (21-32) 12/19/16 06:00 Anion Gap 8 (8-16) 12/19/16 06:00 BUN 8 mg/dL (7-18) 12/19/16 06:00 Creatinine 0.7 mg/dL (0.7-1.3) 12/19/16 06:00 Creat Clearance w eGFR > 60 (>60) 12/19/16 06:00 Random Glucose 118 mg/dL (74-106) H 12/19/16 06:00 Calcium 7.9 mg/dL (8.5-10.1) L 12/19/16 06:00 Total Bilirubin 2.1 mg/dL (0.2-1.0) H 12/21/16 07:45 Direct Bilirubin 0.8 mg/dL (0.0-0.2) H 12/21/16 07:45 AST 50 U/L (15-37) H D 12/21/16 07:45 ALT 51 U/L (12-78) D 12/21/16 07:45 Alkaline Phosphatase 134 U/L (45-117) H 12/21/16 07:45 Total Protein 5.5 g/dl (6.4-8.2) L 12/21/16 07:45 Albumin 2.4 g/dl (3.4-5.0) L 12/21/16 07:45 Urine Color Dkyellow 12/20/16 09:40 Urine Appearance Slcloudy 12/20/16 09:40 Urine pH 6.0 (5.0-8.0) 12/20/16 09:40 Ur Specific [place] 1.010 (1.005-1.025) 12/20/16 09:40 Urine Protein Negative (NEGATIVE) 12/20/16 09:40 Urine Glucose (UA) Negative (NEGATIVE) 12/20/16 09:40 Urine Ketones Negative (NEGATIVE) 12/20/16 09:40 Urine Blood Negative (NEGATIVE) 12/20/16 09:40 Urine Nitrite Negative (NEGATIVE) 12/20/16 09:40 Urine Bilirubin Negative (NEGATIVE) 12/20/16 09:40 Urine Urobilinogen Negative mg/dL (0.2-1.0) 12/20/16 09:40 Ur Leukocyte Esterase Negative (NEGATIVE) 12/20/16 09:40 Valproic Acid 5.078 ug/ml (50-100) L 12/19/16 06:00 RPR Titer Nonreactive (NONREACTIVE) 12/19/16 06:00 Assessment: 12/21/16 12:34 WITHDRAWAL SX Plan: CONTINUE DETOX
[2016-12-21] MEDS: chlordiazePOXIDE HCL 10 MG CAPSULE PO SCH (22:35)
[2016-12-21] MEDS: THIAMINE HCL 100 MG TABLET (FP) PO SCH (22:35)
[2016-12-22] MEDS: METHADONE HCL 5 MG TABLET PO SCH (05:39)
[2016-12-22] MEDS: chlordiazePOXIDE HCL 10 MG CAPSULE PO SCH (05:39)
[2016-12-22] MEDS: ACETAMINOPHEN 325 MG TABLET (FP) PO PRN (05:43)
[2016-12-22 06:25] VITALS: BP 133/74; PULSE 97; TEMP 97.5
[2016-12-22] MEDS: HYDROCHLOROTHIAZIDE 25 MG TABLET (FP) PO SCH (09:20)
[2016-12-22] MEDS: RANITIDINE HCL 150 MG TABLET (FP) PO SCH (09:20)
[2016-12-22] MEDS: SERTRALINE HCL 50 MG TABLET (FP) PO SCH (09:20)
[2016-12-22] MEDS: PRENATAL VITAMINS W/ FOLIC ACID TABLET (FP) PO SCH (09:20)
[2016-12-22] MEDS: NICOTINE 14 MG/24 HOURS TOPICAL PATCH TD SCH (09:33)
--- NOTE | 2016-12-22 12:40 | DS ---
[facility] Detox Discharge Summary Admission Date: 12/18/16 Discharge Date: 12/22/16 - History Present History: Alcohol Dependence, MMTP Additional Comments: PATIENT GOIUNG TO [facility] ([place], [place] FOR AFTERCARE. PATIENT ALSO ADVISED TO FOLLOW-UP WITH GATE AGENT AT [facility] [place] FOR GENERAL MEDICAL ASSESSMENT / CARE AND FOR HISTORY OF LOW WBC'S AND PLATELETS. COPIES OF ALL LABWORK DRAWN WHILE PATIENT WAS ADMITTED FOR DETOX GIVEN TO PATIENT AT TIME OF DISCHARGE. PATIENT WAS DISCHARGED FORM DETOX UNIT IN STABLE MEDICAL CONDITION. Pertinent Past History: HTN, Hep C, Bipolar disorder, Edema of Lower Extremity, Use of Cane as Ambulatory Aid, GERD, History of Umbilical Hernia. - Physical Exam Results Vital Signs: Vital Signs Temperature 97.5 F L 12/22/16 06:24 Pulse Rate 97 H 12/22/16 06:24 Respiratory Rate 18 12/22/16 06:24 Blood Pressure 133/74 12/22/16 06:24 O2 Sat by Pulse Oximetry (%) Pertinent Admission Physical Exam Findings: WITHDRAWAL SYMPTOMS. Laboratory Tests 12/19/16 12/19/16 12/19/16 06:00 06:00 06:00 WBC 3.0 L RBC 3.74 L Hgb 12.6 Hct 37.9 MCV 101.2 H MCH 33.6 MCHC 33.2 RDW 16.0 H D Plt Count 43 L MPV 10.8 Sodium 140 Potassium 4.0 Chloride 106 Carbon Dioxide 26 Anion Gap 8 BUN 8 Creatinine 0.7 Creat Clearance w eGFR > 60 Random Glucose 118 H Calcium 7.9 L Total Bilirubin 2.5 H D Direct Bilirubin AST 101 H D ALT 78 D Alkaline Phosphatase 157 H Total Protein 6.3 L Albumin 2.9 L Urine Color Urine Appearance Urine pH Ur Specific [place] Urine Protein Urine Glucose (UA) Urine Ketones Urine Blood Urine Nitrite Urine Bilirubin Urine Urobilinogen Ur Leukocyte Esterase Valproic Acid 5.078 L RPR Titer 12/19/16 12/20/16 12/21/16 06:00 09:40 07:45 WBC RBC Hgb Hct MCV MCH MCHC RDW Plt Count MPV Sodium Potassium Chloride Carbon Dioxide Anion Gap BUN Creatinine Creat Clearance w eGFR Random Glucose Calcium Total Bilirubin 2.1 H Direct Bilirubin 0.8 H AST 50 H D ALT 51 D Alkaline Phosphatase 134 H Total Protein 5.5 L Albumin 2.4 L Urine Color Dkyellow Urine Appearance Slcloudy Urine pH 6.0 Ur Specific [place] 1.010 Urine Protein Negative Urine Glucose (UA) Negative Urine Ketones Negative Urine Blood Negative Urine Nitrite Negative Urine Bilirubin Negative Urine Urobilinogen Negative Ur Leukocyte Esterase Negative Valproic Acid RPR Titer Nonreactive LABS NOTED. - Treatment Hospital Course: Detox Protocol Followed, Detoxed Safely, Responded well, Discharged Condition Good Patient has Accepted a Rehab Referral to: NO. PATIENT GOING TO [facility]([place] FOR AFTERCARE - Medication Discharge Medications: Ambulatory Orders Multivitamins [Tab-A-Vit -] 1 tab PO DAILY 12/18/14 Hydrochlorothiazide [Hctz -] 25 mg PO DAILY tablet 06/16/16 Aspirin [ASA -] 81 mg PO DAILY #30 mg 07/14/16 Ibuprofen [Motrin -] 600 mg PO DAILY #30 mg 07/14/16 Propranolol HCl [Inderal -] 20 mg PO DAILY #30 tablet 07/14/16 Sertraline HCl [Zoloft -] 50 mg PO DAILY #30 tablet 07/14/16 Sertraline HCl [Zoloft -] 50 mg PO DAILY #30 tablet 12/19/16 - Diagnosis (1) Alcohol dependence with withdrawal, uncomplicated Status: Acute (2) Drug-induced mood disorder Status: Acute (3) Nicotine dependence Status: Chronic Qualifiers: Nicotine product type: cigarettes Substance use status: in withdrawal Qualified Code(s): F17.213 - Nicotine dependence, cigarettes, with withdrawal; F17.213 - Nicotine dependence, cigarettes, with withdrawal (4) Edema of lower extremity Status: Chronic (5) Essential hypertension Status: Chronic (6) GERD (gastroesophageal reflux disease) Status: Chronic Qualifiers: Esophagitis presence: without esophagitis Qualified Code(s): K21.9 - Gastro-esophageal reflux disease without esophagitis; K21.9 - Gastro- esophageal reflux disease without esophagitis; K21.9 - Gastro-esophageal reflux disease without esophagitis (7) Impulse control disorder Status: Chronic (8) Methadone maintenance therapy patient Status: Chronic (9) Opioid dependence on agonist therapy Status: Chronic (10) Umbilical hernia Status: Chronic (11) Use of cane as ambulatory aid Status: Chronic (12) Bipolar II disorder Status: Suspected - AMA Did Patient Leave Against Medical Advice: No
== END 2016-12-22 09:39 | disposition home or self-care (01) | DRG 773 ==
LOC: YASAS 14:58 → Y3N 18:38
PROVIDERS: ADMIT Internal Medicine; ATTEND Internal Medicine
PROC: HZ2ZZZZ Detoxification Services for Substance Abuse Treatment (ICD-10-PCS; principal; 2016-12-18)
DX: F11.20 Opioid dependence, uncomplicated (principal); F10.230 Alcohol dependence with withdrawal, uncomplicated; F17.213 Nicotine dependence, cigarettes, with withdrawal; F19.24 Other psychoactive substance dependence with psychoactive substance-induced mood disorder; F31.81 Bipolar II disorder; F63.9 Impulse disorder, unspecified; I10 Essential (primary) hypertension; K21.9 Gastro-esophageal reflux disease without esophagitis; B18.2 Chronic viral hepatitis C; R60.0 Localized edema; R26.89 Other abnormalities of gait and mobility; Z99.89 Dependence on other enabling machines and devices
CPT/HCPCS: 36415; 80053; 80076; 80164; 81003; 85027; 86593; 93005; 93010; J0475

== ENCOUNTER 2017-11-11 07:21 | Emergency (ER) | payer OTHER ==
[2017-11-11 07:47] VITALS: BMI 34.8
--- NOTE | 2017-11-11 07:55 | PDOC ---
*Physical Exam - Vital Signs Last Vital Signs Temp Pulse Resp BP Pulse Ox 97.9 F 96 H 16 141/85 99 11/11/17 07:25 11/11/17 07:25 11/11/17 07:25 11/11/17 07:25 11/11/17 07:25 - Physical Exam Comments: 11/11/17 07:55 The patient was examined by [LAUREN Gooden] under my direct supervision. I personally evaluated the patient. I concur with the above findings and the plan of care. ED Treatment Course - LABORATORY CBC & Chemistry Diagram: 11/11/17 08:30 11/11/17 08:30 *DC/Admit/Observation/Transfer Diagnosis at time of Disposition: Ascites, SOB (shortness of breath), Edema - Discharge Dispostion Disposition: HOME Condition at time of disposition: Improved - Referrals - Patient Instructions Printed Discharge Instructions: Ascites Additional Instructions: Pt was sent to IR for ultrasound guided large-volume paracentesis w/ approximately 4 L ascitic fluid removed with improvement of symptoms on reassessment. (see labs/cxr in records) Patient was instructed to call number on back of insurance card to get PMD and liver specialist referrals - Post Discharge Activity
[2017-11-11] MEDS ORDERED: FUROSEMIDE 40 MG/4 ML INJECTABLE VIAL IVPUSH ONE (08:19)
[2017-11-11 08:36] LABS: BASO % 0.7 % (0-2.0); EOS % 1.2 % (0-4.5); HEMATOCRIT 35.9 % (35.4-49); HEMOGLOBIN 12.2 GM/dL (11.7-16.9); LYMPH % 11.4 % (8-40); MCH 35.5 pg (25.7-33.7); MCHC 33.9 g/dl (32.0-35.9); MEAN CELL VOLUME 104.5 fl (80-96); MEAN PLT VOLUME 9.4 fl (7.5-11.1); MONO % 14.4 % (3.8-10.2); NEUT % 72.3 % (42.8-82.8); PLATELET COUNT 57 K/MM3 (134-434); RBC 3.43 M/mm3 (4.00-5.60); RDW 15.1 % (11.9-15.9); WHITE BLOOD COUNT 3.1 K/mm3 (4.0-10.0)
[2017-11-11 08:41] LABS: URINE APPEARANCE CLEAR; URINE COLOR AMBER; URINE GLUCOSE (UA) NEGATIVE (NEGATIVE); URINE KETONE NEGATIVE (NEGATIVE); URINE LEUK ESTERASE NEGATIVE (NEGATIVE); URINE NITRITE NEGATIVE (NEGATIVE); URINE PROTEIN NEGATIVE (NEGATIVE); URINE UROBILINOGEN 4.0 E.U/dl mg/dL (0.2-1.0)
--- NOTE | 2017-11-11 08:46 | PDOC ---
History of Present Illness - General Chief Complaint: Alcohol intoxication Stated Complaint: DETOX Time Seen by Provider: 11/11/17 07:36 History Source: Patient - History of Present Illness Timing/Duration: reports: getting worse Past History - Past Medical History Allergies/Adverse Reactions: Allergies Allergy/AdvReac Type Severity Reaction Status Date / Time No Known Allergies Allergy Verified 12/18/16 18:27 Home Medications: Ambulatory Orders Amlodipine Besylate [Norvasc -] 2.5 mg PO DAILY 11/11/17 Cholecalciferol (Vitamin D3) [Vitamin D3 -] 0 unit PO DAILY 11/11/17 Folic Acid 1 mg PO DAILY 11/11/17 Methadone [Dolophine -] 15 mg PO DAILY 11/11/17 Multivitamin [Daily Multiple Vitamin] 1 each PO DAILY 11/11/17 Anemia: No Asthma: No Cancer: No Cardiac Disorders: No CVA: No COPD: No CHF: No Dementia: No Diabetes: No GI Disorders: No (HERNIAS) Disorders: No HTN: No Hypercholesterolemia: No Kidney Stones: No Liver Disease: Yes (CIRHOSIS) Seizures: No Thyroid Disease: No - Surgical History Abdominal Surgery: No Appendectomy: No Cardiac Surgery: No Cholecystectomy: No Lung Surgery: No Neurologic Surgery: No Orthopedic Surgery: Yes (R hip sx at age 5/left knee at age 7) - Reproductive History Testicular Surgery: No - Suicide/Smoking/Psychosocial Hx Smoking History: Current every day smoker Have you smoked in the past 12 months: Yes Number of Cigarettes Smoked Daily: 20 Cigars Per Day: 0 Information on smoking cessation initiated: No 'Breaking Loose' booklet given: 12/18/16 Hx Alcohol Use: Yes (DAILY) Drug/Substance Use Hx: No Substance Use Type: Alcohol Hx Substance Use Treatment: Yes (11/11-11/15/16 [facility]) Abd/GI Specific PMHX - Complaint Specific PMHX Hepatitis: No Pancreatitis: No Review of Systems - Review of Systems Able to Perform ROS?: (O) Constitutional: No: Chills, Fever, Unexplained wgt Loss Respiratory: Yes: Shortness of Breath Cardiac (ROS): No: Chest Pain ABD/GI: No: Blood Streaked Bowels, Constipated, Diarrhea, Nausea, Rectal Bleeding, Vomiting : No: Dysuria *Physical Exam - Vital Signs Last Vital Signs Temp Pulse Resp BP Pulse Ox 97.9 F 96 H 16 141/85 99 11/11/17 07:25 11/11/17 07:25 11/11/17 07:25 11/11/17 07:25 11/11/17 07:25 - Physical Exam General Appearance: Yes: Appropriately Dressed. No: Apparent Distress HEENT: positive: Normal Voice Neck: positive: Supple Respiratory/Chest: positive: Lungs Clear, Normal Breath Sounds. negative: Respiratory Distress Cardiovascular: positive: Regular Rate, S1, S2 Gastrointestinal/Abdominal: positive: Distended, Other (temse ascites w/ easily reducile ventral and periumbilical hernia, R inguinal hernia extending into R scrotum, prominent abd wall veins (caput medusae)) Musculoskeletal: negative: CVA Tenderness Extremity: positive: Pedal Edema Integumentary: positive: Dry, Warm Neurologic: positive: Fully Oriented, Alert, Normal Mood/Affect ED Treatment Course - LABORATORY CBC & Chemistry Diagram: 11/11/17 08:30 11/11/17 08:30 - RADIOLOGY Radiology Studies Ordered: Category Date Time Status CHEST PA & LAT [RAD] Stat Radiology 11/11/17 08:03 Ordered Medical Decision Making - Medical Decision Making 11/11/17 08:32 57-year-old male, history of polysubstance abuse, including alcohol, on methadone, smoker, hepatitis C, cirrhosis (C/B ascites, ?varices, neg SBP), chronic LE edema, GERD, multiple hernias, sent from detox after patient complained of various symptoms at in-pt screening last night. Patient complaining of gradual worsening of abdominal distention, shortness of breath and worsening edema of bilateral lower extremity with difficulty ambulating. Has not taken his HCTZ in over 9 months per pt. Patient states he currently does not have a PMD or a liver specialist. States his last PMD was at [facility] and has not seen M.D. in years. States the last time he received therapeutic tap was several years ago at [facility] in the [place]. Pt admits that he has not f/u "because I continue to drink" and "I messed up". Patient denies any constipation, diarrhea, bright red blood per rectum, melena, nausea, vomiting, fever or chills See exam Abd distention/sob/edema in pt w/ cirrhosis Non-compliant w/ HCTZ and lost to f/u Last LVP years ago per pt Sxs 2/2 sig accumulation of ascites w/ distended hard abd on exam and caput medusae Prominent abd hernias (ventral/periumbilical/R inguinal) m/l due to ascites w/ no e/o incarceration at this time Doubt SBP given hx -labs -CXR -EKG -dose of lasix as d/w ED attg -methadone dose (will call to verify) -anticipate admission for therapeutic large-volume paracentesis (LVP) 11/11/17 10:39 Labs baseline for pt. CXR neg. Will arrange admission for therapeutic LVP at this time 11/11/17 10:46 11/11/17 10:50 Case discussed with admitting team, who recommends that I call IR to arrange therapeutic paracentesis 11/11/17 11:11 11/11/17 14:48 Pt returned from IR and states about "4-1/2 bottles" of fluid was removed. Reports feeling significantly better at this time and requesting transfer back to in-patient detox. Had lengthy conversation with patient discussing the importance of getting a PMD and a liver specialist as may need frequent LVPs going forward. Patient verbalized understanding. Contacted staff at [facility] and made aware of pt's return thank you *DC/Admit/Observation/Transfer Diagnosis at time of Disposition: SOB (shortness of breath) Ascites Qualifiers: Ascites type: due to alcoholic cirrhosis Qualified Code(s): K70.31 - Alcoholic cirrhosis of liver with ascites Edema Qualifiers: Edema type: unspecified Qualified Code(s): R60.9 - Edema, unspecified - Discharge Dispostion Disposition: HOME Condition at time of disposition: Improved - Referrals - Patient Instructions Printed Discharge Instructions: Ascites Additional Instructions: Pt was sent to IR for ultrasound guided large-volume paracentesis w/ approximately 4 L ascitic fluid removed with improvement of symptoms on reassessment. (see labs/cxr in records) Patient was instructed to call number on back of insurance card to get PMD and liver specialist referrals - Post Discharge Activity
[2017-11-11 09:24] LABS: INR 1.81 (0.83-1.09); PROTHROMBIN TIME (PATIENT) 20.4 SEC (9.7-13.0)
[2017-11-11 09:26] LABS: ALBUMIN 2.1 g/dl (3.4-5.0); ANION GAP 6 MMOL/L (8-16); BILIRUBIN,TOTAL 3.1 mg/dL (0.2-1.0); BLOOD UREA NITROGEN 6 mg/dL (7-18); CALCIUM 7.5 mg/dL (8.5-10.1); CHLORIDE 104 mmol/L (98-107); CO2 29 mmol/L (21-32); CREATININE 0.6 mg/dL (0.7-1.3); GLUCOSE,RANDOM 84 mg/dL (74-106); LIPASE 136 U/L (73-393); POTASSIUM 3.6 mmol/L (3.5-5.1); SGOT/AST 84 U/L (15-37); SGPT/ALT 47 U/L (12-78); SODIUM 139 mmol/L (136-145); TOT PROT 6.1 g/dl (6.4-8.2)
[2017-11-11 09:27] LABS: ALK PHOS 121 U/L (45-117)
[2017-11-11] MEDS ORDERED: chlordiazePOXIDE HCL 25 MG CAPSULE PO ONE (10:08)
[2017-11-11] MEDS ORDERED: METHADONE HCL 10 MG TABLET ONE (10:44)
[2017-11-11] MEDS ORDERED: METHADONE HCL 10 MG TABLET PO ONE (11:00)
[2017-11-11 14:48] LABS: TOTAL PROTEIN,PERITONEAL FLUID 1 gm/dL
[2017-11-11 14:58] VITALS: BP 160/85; PULSE 106; TEMP 99
[2017-11-11 15:07] LABS: PERITONEAL RBC 310 /mm3
[2017-11-11 21:06] LABS: PERITONEAL FLUID LYMPHOCYTE 3 %; PERITONEAL FLUID MONOCYTE 5 %; PERITONEAL FLUID NEUTROPHIL 6 %
[2017-11-11 21:07] LABS: PERITONEAL FLUID MACROPHAGE 84 %; PERITONEAL FLUID MESOTHELIAL 2 %
[2017-11-12] MEDS ORDERED: METHADONE HCL 5 MG TABLET PO ONE (10:22)
--- NOTE | 2017-11-13 16:43 | PATH ---
Cytology Non-Gynecological Report Patient Name: PATRICK MARQUES [facility]. Rec. #: [id number] /Age/Gender: 1960 (Age: 57) / M Account: [id number] Location: EMERGENCY ROOM Taken: 11/11/2017 Received: 11/12/2017 Reported: 11/13/2017 Physicians: Surjit Fletcher M.D. Specimen(s) Received RLQ body fluid (Ascites) Clinical History Ascites, liver cirrhosis Final Diagnosis ABDOMINAL FLUID, RIGHT LOWER QUADRANT, PARACENTESIS: SATISFACTORY FOR EVALUATION. NO MALIGNANT CELLS IDENTIFIED. MESOTHELIAL CELLS PRESENT. Comment: Recommend correlation with clinical findings and follow up as clinically indicated. Electronically Signed Laurel Ortega M.D. Gross Description Approximately 30 cc of yellow fluid received fixed in 50% alcohol. Approximately 5000 cc of yellow fluid received fresh. One cytofunnel Pap stained and one cellblock prepared
== END 2017-11-11 15:10 | disposition home or self-care (01) ==
LOC: JER 07:21
PROC: 0W9G3ZZ Drainage of Peritoneal Cavity, Percutaneous Approach (ICD-10-PCS; principal; 2017-11-11)
PROC: BW40ZZZ Ultrasonography of Abdomen (ICD-10-PCS; 2017-11-11)
DX: K70.31 Alcoholic cirrhosis of liver with ascites (principal); R60.0 Localized edema; R06.02 Shortness of breath; F10.10 Alcohol abuse, uncomplicated; F11.20 Opioid dependence, uncomplicated; B18.2 Chronic viral hepatitis C; F17.210 Nicotine dependence, cigarettes, uncomplicated
CPT/HCPCS: 36415; 71046-TC-FY; 76942-TC; 80053; 81003; 82042; 82150; 82945; 83615; 83690; 84157; 85025; 85610; 87070; 87075; 87102; 87116; 87205; 87206; 87210; 88108; 89051; 99283-25

== ENCOUNTER 2017-11-11 18:20 | Inpatient (IN) | payer OTHER ==
[2017-11-11 19:48] VITALS: BMI 31.4
--- NOTE | 2017-11-11 21:48 | HP ---
CIWA Score - CIWA Score Nausea/Vomitin-Mild Nausea/No Vomiting Muscle Tremors: 3 Anxiety: 4-Mod. Anxious/Guarded Agitation: 4-Moderately Restless Paroxysmal Sweats: 3 Orientation: 1-Uncertain about Date Tacttile Disturbances: 2-Mild Itch/Numbness/Burn Auditory Disturbances: 0-None Visual Disturbances: 0-None Headache: 2-Mild CIWA-Ar Total Score: 20 Admission ROS S - HPI Chief Complaint: C/O WITHDRAWAL SX'S. SEEKING DETOX FROM ALCOHOL Allergies/Adverse Reactions: Allergies Allergy/AdvReac Type Severity Reaction Status Date / Time No Known Allergies Allergy Verified 11/11/17 19:58 History of Present Illness: 57 Y.O. MALE WITH ALCOHOLISM ON MMTP FOR OPIOID DEPENDENCE HERE FOR DETOX. CLIENT WAS SENT FROM [facility] AFTER BEING MEDICALLY CLEARED FOR C/O SOB/EDEMA/ ASCITES. HIS ABD WAS TAPPED AND REMOVED 4 LITERS OF FLUID. HE CURRENTLY ATTENDS [facility] FOR MMTP. LDM METHADONE 15 MG TODAY. MEDICATED FROM [facility] REPORTS LONGEST CLEAN TIME 5 YEARS WHILE ON MMTP. C/O WITHDRAWAL SX'S CIWA 20. DENIES C.P., SOB, SEIZURE D/O, PAST/PRESENT SI/HI, DRUG OVERDOSE. PMHX: LIVER CIRRHOSIS, OA, ASCITES, HTN,HEPC W/ TXMENT PSYCH: ANGER, DEPRESSION ER VISIT Medical Decision Making - Medical Decision Making 11/11/17 08:32 57-year-old male, history of polysubstance abuse, including alcohol, on methadone, smoker, hepatitis C, cirrhosis (C/B ascites, ?varices, neg SBP), chronic LE edema, GERD, multiple hernias, sent from detox after patient complained of various symptoms at in-pt screening last night. Patient complaining of gradual worsening of abdominal distention, shortness of breath and worsening edema of bilateral lower extremity with difficulty ambulating. Has not taken his HCTZ in over 9 months per pt. Patient states he currently does not have a PMD or a liver specialist. States his last PMD was at [facility] and has not seen M.D. in years. States the last time he received therapeutic tap was several years ago at [facility] in the [place]. Pt admits that he has not f/u "because I continue to drink" and "I messed up". Patient denies any constipation, diarrhea, bright red blood per rectum, melena, nausea, vomiting, fever or chills See exam Abd distention/sob/edema in pt w/ cirrhosis Non-compliant w/ HCTZ and lost to f/u Last LVP years ago per pt Sxs 2/2 sig accumulation of ascites w/ distended hard abd on exam and caput medusae Prominent abd hernias (ventral/periumbilical/R inguinal) m/l due to ascites w/ no e/o incarceration at this time Doubt SBP given hx -labs -CXR -EKG -dose of lasix as d/w ED attg -methadone dose (will call to verify) -anticipate admission for therapeutic large-volume paracentesis (LVP) 11/11/17 10:39 Labs baseline for pt. CXR neg. Will arrange admission for therapeutic LVP at this time 11/11/17 10:46 11/11/17 10:50 Case discussed with admitting team, who recommends that I call IR to arrange therapeutic paracentesis 11/11/17 11:11 11/11/17 14:48 Pt returned from IR and states about "4-1/2 bottles" of fluid was removed. Reports feeling significantly better at this time and requesting transfer back to in-patient detox. Had lengthy conversation with patient discussing the importance of getting a PMD and a liver specialist as may need frequent LVPs going forward. Patient verbalized understanding. Contacted staff at [facility] and made aware of pt's return thank you *DC/Admit/Observation/Transfer Diagnosis at time of Disposition: SOB (shortness of breath) Ascites Qualifiers: Ascites type: due to alcoholic cirrhosis Qualified Code(s): K70.31 - Alcoholic cirrhosis of liver with ascites Edema Qualifiers: Edema type: unspecified Qualified Code(s): R60.9 - Edema, unspecified - Discharge Dispostion Disposition: HOME Condition at time of disposition: Improved - Referrals - Patient Instructions Printed Discharge Instructions: Ascites Additional Instructions: Pt was sent to IR for ultrasound guided large-volume paracentesis w/ approximately 4 L ascitic fluid removed with improvement of symptoms on reassessment. (see labs/cxr in records) Patient was instructed to call number on back of insurance card to get PMD and liver specialist referrals - Post Discharge Activity Exam Limitations: No Limitations - Ebola screening Have you traveled outside of the country in the last 21 days: No (N) Have you had contact with anyone from an Ebola affected area: No Have you been sick,other than usual withdrawal symptoms: No Do you have a fever: No - Review of Systems Constitutional: Chills, Night Sweats EENT: reports: Dental Problems (MISSING TEETH), Other (CORRECTIVE LENSES) Respiratory: reports: No Symptoms reported Cardiac: reports: No Symptoms Reported GI: reports: Other (ASCITES) : reports: No Symptoms Reported Musculoskeletal: reports: Joint Pain, Other (AMBULATES W/ CANE) Integumentary: reports: Sweating Neuro: reports: No Symptoms reported Endocrine: reports: No Symptoms Reported Hematology: reports: Easy Bruising Psychiatric: reports: Depressed Other Systems: Reviewed and Negative Patient History - Patient Medical History Hx Anemia: No Hx Asthma: No Hx Chronic Obstructive Pulmonary Disease (COPD): No Hx Cancer: No Hx Cardiac Disorders: No Hx Congestive Heart Failure: No Hx Hypertension: No Hx Hypercholesterolemia: No Hx Pacemaker: No HX Cerebrovascular Accident: No Hx Seizures: No Hx Dementia: No Hx Diabetes: No Hx Gastrointestinal Disorders: No (HERNIAS) Hx Liver Disease: Yes (CIRHOSIS) Hx Genitourinary Disorders: No Hx Sexually Transmitted Disorders: No Hx Renal Disease (ESRD): No Hx Thyroid Disease: No Hx Human Immunodeficiency Virus (HIV): No (negative a yr ago) Hx Hepatitis C: Yes (TX'ED) Hx Depression: No Hx Suicide Attempt: No Hx Bipolar Disorder: Yes Hx Schizophrenia: No Other Medical History: DENIES - Patient Surgical History Past Surgical History: Yes Hx Neurologic Surgery: No Hx Cataract Extraction: No Hx Cardiac Surgery: No Hx Lung Surgery: No Hx Breast Surgery: No Hx Breast Biopsy: No Hx Abdominal Surgery: No Hx Appendectomy: No Hx Cholecystectomy: No Hx Genitourinary Surgery: No Hx Section: No Hx Orthopedic Surgery: Yes (R hip sx at age 5/left knee at age 7) Other Surgical History: cyst removed from right knee at age 16 Anesthesia Reaction: No - PPD History Previous Implant?: Yes Documented Results: Negative w/proof Implanted On Prior [facility] Admission?: Yes Date: 06/14/16 Results: 0 mm PPD to be Administered?: Yes - Smoking Cessation Smoking history: Current every day smoker Have you smoked in the past 12 months: Yes Aproximately how many cigarettes per day: 10 Cigars Per Day: 0 Hx Chewing Tobacco Use: No Initiated information on smoking cessation: Yes 'Breaking Loose' booklet given: 11/11/17 - Substance & Tx. History Hx Alcohol Use: Yes Hx Substance Use: Yes Substance Use Type: Alcohol, Cocaine (DENIES) Hx Substance Use Treatment: Yes ([facility]) - Substances Abused Alcohol Route: Oral Frequency: Daily Amount used: 10 BEER Age of first use: 17 Date of Last Use: 11/11/17 Family Disease History - Family Disease History Family Disease History: Other: Father (COCAINE AND ALCOHOL), Mother (ALCOHOL/ ) Admission Physical Exam BHS - Vital Signs Vital Signs: Vital Signs - 24 hr 11/11/17 19:47 Temperature 97.9 F Pulse Rate 110 H Respiratory 18 Rate Blood Pressure 150/82 - Physical General Appearance: Yes: Appropriately Dressed, Mild Distress, Tremorous, Sweating, Other (APPEARS CHRONICALLY ILL) HEENTM: Yes: EOMI, Normocephalic, Normal Voice, KORIN, Pharynx Normal, Nasal Congestion, Other (CORRECTIVE LENSES) Respiratory: Yes: Chest Non-Tender, No Respiratory Distress, No Accessory Muscle Use, Wheezing Neck: Yes: No masses,lesions,Nodules, Supple, Trachea in good position Breast: Yes: Breast Exam Deferred Cardiology: Yes: Regular Rhythm, S1, S2, Tachycardia Abdominal: Yes: Non Tender, Soft, Protuberent, Hernia (X2), Other (CLEAN DRY DRESSING TO RLQ ABD WALL) Genitourinary: Yes: Other (NO C/O) Back: Yes: Normal Inspection Musculoskeletal: Yes: Joint Stiffness, Other (UNSTEADY AMBULATES W/ CANE) Extremities: Yes: Non-Tender, Tremors, Swelling (BLE) Neurological: Yes: Alert, Normal Mood/Affect Integumentary: Yes: Warm, Moist, Pitting Edema (BLE) Lymphatic: Yes: Within Normal Limits - Diagnostic (1) Alcohol dependence with withdrawal, uncomplicated Current Visit: Yes Status: Acute (2) Ascites Current Visit: Yes Status: Chronic Qualifiers: Ascites type: due to alcoholic cirrhosis Qualified Code(s): K70.31 - Alcoholic cirrhosis of liver with ascites (3) Drug-induced mood disorder Current Visit: Yes Status: Suspected (4) Arthritis of both knees Current Visit: No Status: Chronic (5) Edema of lower extremity Current Visit: Yes Status: Chronic (6) Essential hypertension Current Visit: Yes Status: Chronic (7) GERD (gastroesophageal reflux disease) Current Visit: Yes Status: Chronic Qualifiers: Esophagitis presence: without esophagitis Qualified Code(s): K21.9 - Gastro -esophageal reflux disease without esophagitis (8) Hip pain associated with recalled total hip arthroplasty hardware Current Visit: Yes Status: Chronic (9) Methadone maintenance therapy patient Current Visit: Yes Status: Chronic Comment: 15 MG VERIFICATION PENDING (10) Nicotine dependence Current Visit: Yes Status: Chronic Qualifiers: Nicotine product type: cigarettes Substance use status: in withdrawal Qualified Code(s): F17.213 - Nicotine dependence, cigarettes, with withdrawal (11) Umbilical hernia Current Visit: Yes Status: Chronic Comment: SCHEDULED FOR SURGICAL REPAIR (12) Use of cane as ambulatory aid Current Visit: Yes Status: Chronic Comment: RIGHT HIP INJURY (13) Cirrhosis of liver Current Visit: Yes Status: Chronic Qualifiers: Hepatic cirrhosis type: alcoholic cirrhosis Ascites presence: unspecified Qualified Code(s): K70.30 - Alcoholic cirrhosis of liver without ascites Cleared for Admission [facility] - Detox or Rehab [facility] Level of Care: Medically Managed Detox Regimen/Protocol: Librium Claeared for Rehab Admission: No S Breath Alcohol Content Breath Alcohol Content: 0 Urine Drug Screen - Results Drug Screen Negative: No Urine Drug Screen Results: LOREE-Cocaine, MTD-Methadone
[2017-11-11] MEDS ORDERED: MELATONIN 5 MG TABLETS PO PRN (22:00)
[2017-11-11] MEDS ORDERED: chlordiazePOXIDE HCL 25 MG CAPSULE PO PRN (22:05)
[2017-11-11] MEDS ORDERED: LOPERAMIDE HCL 2 MG CAPSULE PO PRN (22:05)
[2017-11-11] MEDS ORDERED: guaiFENesin/D-METHORPHAN HB 10 ML UNIT-DOSE CUPS PO PRN (22:05)
[2017-11-11] MEDS ORDERED: MAG HYDROX/AL HYDROX/SIMETH 30 ML UNIT-DOSE CUP PO PRN (22:05)
[2017-11-11] MEDS ORDERED: hydrOXYzine PAMOATE 50 MG CAPSULE (FP) PO PRN (22:05)
[2017-11-11] MEDS ORDERED: IBUPROFEN 400 MG TABLET (FP) PO PRN (22:05)
[2017-11-11] MEDS ORDERED: MENTHOL/PHENOL 1 EACH UD MM PRN (22:05)
[2017-11-11] MEDS ORDERED: P-EPHED 60MG/TRIPROLIDI 2.5MG TABLET PO PRN (22:05)
[2017-11-11] MEDS ORDERED: NICOTINE POLACRILEX 2 MG GUM BC PRN (22:05)
[2017-11-11] MEDS ORDERED: MAGNESIUM CITRATE 300 ML BOTTLE PO PRN (22:05)
[2017-11-11] MEDS ORDERED: MAGNESIUM HYDROX 2400MG/30ML ORAL SUSPENSION 30 ML CUP PO PRN (22:05)
[2017-11-12] MEDS: chlordiazePOXIDE HCL 25 MG CAPSULE PO SCH ×5 (00:16→22:22)
[2017-11-12 01:13] LABS: URINE APPEARANCE CLEAR; URINE BILIRUBIN NEGATIVE (<2.0 mg/dL); URINE COLOR AMBER; URINE GLUCOSE (UA) NEGATIVE (NEGATIVE); URINE KETONE NEGATIVE (NEGATIVE); URINE LEUK ESTERASE NEGATIVE (NEGATIVE); URINE NITRITE NEGATIVE (NEGATIVE); URINE PROTEIN NEGATIVE (NEGATIVE); URINE UROBILINOGEN 4.0 E.U/dl mg/dL (0.2-1.0)
[2017-11-12] MEDS ORDERED: METHADONE HCL 5 MG TABLET PO ONE (09:19)
[2017-11-12] MEDS ORDERED: amLODIPine BESYLATE 5 MG TABLET (FP) PO SCH (10:00)
[2017-11-12] MEDS: PRENATAL VITAMINS W/ FOLIC ACID TABLET (FP) PO SCH (10:15)
[2017-11-12] MEDS: NICOTINE 14 MG/24 HOURS TOPICAL PATCH TD SCH (10:16)
[2017-11-12] MEDS: amLODIPine BESYLATE 2.5 MG TABLET (FP) PO SCH (10:18)
[2017-11-12] MEDS ORDERED: FUROSEMIDE 20 MG TABLET (FP) PO ONE (11:52)
--- NOTE | 2017-11-12 11:57 | PN ---
[facility] CIWA - CIWA Score Nausea/Vomitin-No Nausea/No Vomiting Muscle Tremors: 4-Moderate,w/Arms Extend Anxiety: 4-Mod. Anxious/Guarded Agitation: 4-Moderately Restless Paroxysmal Sweats: 1-Minimal Palms Moist Orientation: 0-Oriented Tacttile Disturbances: 0-None Auditory Disturbances: 0-None Visual Disturbances: 0-None Headache: 0-None Present CIWA-Ar Total Score: 13 S Progress Note (SOAP) Subjective: ANXIETY,IRRITABILITY,SWEATS,BILATERAL LEG EDEMA. S/P ASCITIS WITH ABDOMINAL TAP. Objective: 11/12/17 11:58 Vital Signs 11/12/17 11/12/17 11/12/17 06:18 06:30 10:15 Temperature 99.3 F 98.0 F Pulse Rate 81 90 Respiratory 18 18 18 Rate Blood Pressure 111/67 138/78 Laboratory Tests 11/12/17 00:40 Urine Color Annabelle Urine Appearance Clear Urine pH 6.0 Ur Specific [place] 1.008 Urine Protein Negative Urine Glucose (UA) Negative Urine Ketones Negative Urine Blood Negative Urine Nitrite Negative Urine Bilirubin Negative Urine Urobilinogen 4.0 e.u/dl Ur Leukocyte Esterase Negative OTHER LABS DONE IN [facility] ER. Assessment: 11/12/17 11:58 WITHDRAWAL SX Plan: CONTINUE DETOX LASIX 20 MG PO NOW.
[2017-11-12] MEDS ORDERED: ASPIRIN 81 MG CHEWABLE TABLETS PO SCH (12:00)
--- NOTE | 2017-11-12 13:48 | EKG ---
Test Reason : Blood Pressure : / mmHG Vent. Rate : 094 BPM Atrial Rate : 094 BPM P-R Int : 146 ms QRS Dur : 084 ms QT Int : 388 ms P-R-T Axes : 069 037 032 degrees QTc Int : 485 ms NORMAL SINUS RHYTHM POSSIBLE LEFT ATRIAL ENLARGEMENT PROLONGED QT ABNORMAL ECG WHEN COMPARED WITH ECG OF 18-DEC-2016 21:16, NO SIGNIFICANT CHANGE WAS FOUND Confirmed by LASHAY IBANEZ MD ([id number]) on 11/12/2017 1:48:14 PM Referred By: Confirmed By:LASHAY IBANEZ MD
[2017-11-12] MEDS: ACETAMINOPHEN 325 MG TABLET (FP) PO PRN (17:23)
--- NOTE | 2017-11-12 17:31 | CONSULT ---
[facility] Psychiatric Consult - Data Date of interview: 11/12/17 Admission source: [facility] Identifying data: Patient is a 57 year old single male, father of two, unemployed, domiciled, and supported by SSI benefits. This is one of multiple admissions for patient. Pt. admitted to for alcohol and cocaine dependence. Substance Abuse History: Smoking Cessation. Smoking history: Current every day smoker. Have you smoked in the past 12 months: Yes. Aproximately how many cigarettes per day: 10. Cigars Per Day: 0. Hx Chewing Tobacco Use: No. Initiated information on smoking cessation: Yes. 'Breaking Loose' booklet given : 11/11/17. - Substance & Tx. History. Hx Alcohol Use: Yes. Hx Substance Use : Yes. Substance Use Type: Alcohol, Cocaine (DENIES). Hx Substance Use Treatment: Yes ([facility]). - Substances Abused. Alcohol. Route: Oral. Frequency: Daily. Amount used: 10 BEER. Age of first use: 17. Date of Last Use: 11/11/17 Medical History: Hernia, Cirrhosis of the liver, R hip sx at age 5/left knee at age, cyst removed from right knee at age 16 Psychiatric History: Patient reports two psychiatric hospitalizations, most recently 2 years ago at [facility]. Outpatient psychiatric services was provided at [facility] two years ago. Pt. denies current OPD. States he has not accepted psychotropic medication (zoloft) in approximately 1- 2 years and is not interested in resuming medications. Mr Conway is also on methadone maintenance (15 mg/day). Pt denies h/o suicide attempt. Physical/Sexual Abuse/Trauma History: denies. Mental Status Exam - Mental Status Exam Alert and Oriented to: Time, Place, Person Cognitive Function: Good Patient Appearance: Well Groomed Mood: Euthymic Affect: Appropriate Patient Behavior: Appropriate, Cooperative Speech Pattern: Appropriate Voice Loudness: Normal Thought Process: Intact, Goal Oriented Hallucinations: Denies Suicidal Ideation: Denies Homicidal Ideation: Denies Insight/Judgement: Poor Sleep: Fair Appetite: Fair Muscle strength/Tone: Normal Gait/Station: Normal Psychiatric Findings - Problem List ([place] 1, 2,3) (1) Cocaine dependence Current Visit: Yes Status: Chronic (2) Alcohol dependence with withdrawal, uncomplicated Current Visit: Yes Status: Acute (3) Nicotine dependence Current Visit: Yes Status: Chronic Qualifiers: Nicotine product type: cigarettes Substance use status: in withdrawal Qualified Code(s): F17.213 - Nicotine dependence, cigarettes, with withdrawal (4) Methadone maintenance therapy patient Current Visit: Yes Status: Chronic Comment: 15 MG VERIFICATION PENDING (5) Substance induced mood disorder Current Visit: Yes Status: Suspected - Initial Treatment Plan Initial Treatment Plan: Psychoeducation provided. Detoxification in progress. Observation.
[2017-11-12] MEDS: THIAMINE HCL 100 MG TABLET (FP) PO SCH (22:21)
[2017-11-13] MEDS: METHADONE HCL 5 MG TABLET PO SCH (05:48)
[2017-11-13] MEDS: chlordiazePOXIDE HCL 25 MG CAPSULE PO SCH ×3 (05:48→17:19)
[2017-11-13] MEDS: ACETAMINOPHEN 325 MG TABLET (FP) PO PRN (05:54)
[2017-11-13] MEDS: PRENATAL VITAMINS W/ FOLIC ACID TABLET (FP) PO SCH (10:33)
[2017-11-13] MEDS: ASPIRIN 81 MG CHEWABLE TABLETS PO SCH (10:33)
[2017-11-13] MEDS: amLODIPine BESYLATE 2.5 MG TABLET (FP) PO SCH (10:33)
[2017-11-13] MEDS: NICOTINE 14 MG/24 HOURS TOPICAL PATCH TD SCH (10:35)
--- NOTE | 2017-11-13 11:50 | PN ---
[facility] Progress Note Note: NURSE TIMOTHY REPORTED PT STATES HE FELL UNWITNESSED.PT REPORTS HIS LEGS FELT WEAK AND HE LANDED FORWARD ON HIS HANDS AND STOMACH. HE DENIES HEAD INVOLVEMENT. PT WAS INFORMED THE NEED TO BE EXAMINED AT [facility] FOR UNWITNESSED FALL PER PROTOCOL BUT HE DECLINED, SIGNING REFUSAL FORM. PT HAS CHRONIC BILATERAL MUSCULOSKELETAL DIFFICULTY IN WALKING/ EDEMA. WALKS WITH A CANE. PT REPORTS DID NOT WALK WITH THE CANE WHICH WAS BY THE BEDSIDE SERVING A CLOTHS DRYER. EXAM:NO VISIBLE ACUTE INJURY NOTED. LOWER EXTREMITIES EDEMA WITH DIFFICULTY IN ROM. UPPER EXTREMITIES ACTIVE ROM. ABDOMEN:UMBILICAL HERNIA, ASCITIC ABDOMEN-DISTENDED. NO TRUAMA NOTED. PLAN:FALL PROTOCOL (PT REFUSED) CONTINUE TO MONITOR PT.
--- NOTE | 2017-11-13 13:23 | PN ---
S CIWA - CIWA Score Nausea/Vomitin-No Nausea/No Vomiting Muscle Tremors: 4-Moderate,w/Arms Extend Anxiety: 4-Mod. Anxious/Guarded Agitation: 4-Moderately Restless Paroxysmal Sweats: 1-Minimal Palms Moist Orientation: 0-Oriented Tacttile Disturbances: 0-None Auditory Disturbances: 0-None Visual Disturbances: 0-None Headache: 0-None Present CIWA-Ar Total Score: 13 S Progress Note (SOAP) Subjective: ANXIETY,SWEATS,CHRONIC BACK AND LEG PAIN/EDEMA. Objective: 11/13/17 13:19 Vital Signs 11/13/17 11/13/17 11/13/17 06:22 09:14 10:00 Temperature 97 F L 97.1 F L 98.6 F Pulse Rate 75 110 H 76 Respiratory 18 20 20 Rate Blood Pressure 104/76 141/74 138/76 11/13/17 11:14 Temperature 98.0 F Pulse Rate 107 H Respiratory 20 Rate Blood Pressure 128/71 Laboratory Tests 11/12/17 11/12/17 00:40 06:00 Urine Color Annabelle Urine Appearance Clear Urine pH 6.0 Ur Specific [place] 1.008 Urine Protein Negative Urine Glucose (UA) Negative Urine Ketones Negative Urine Blood Negative Urine Nitrite Negative Urine Bilirubin Negative Urine Urobilinogen 4.0 e.u/dl Ur Leukocyte Esterase Negative RPR Titer Nonreactive Assessment: 11/13/17 13:19 WITHDRAWAL SX Plan: CONTINUE DETOX
[2017-11-13] MEDS ORDERED: LACTULOSE 20 GM/30 ML UDC (FOR ORAL USE ONLY) PO SCH (13:45)
[2017-11-13] MEDS ORDERED: FUROSEMIDE 20 MG TABLET (FP) PO SCH (13:45)
[2017-11-13] MEDS: RANITIDINE HCL 150 MG TABLET (FP) PO SCH (14:52)
[2017-11-13] MEDS: LIDOCAINE 5% TOPICAL PATCH TP SCH (15:27)
[2017-11-13] MEDS: chlordiazePOXIDE 5 MG CAPSULE PO SCH (22:17)
[2017-11-13] MEDS: THIAMINE HCL 100 MG TABLET (FP) PO SCH (22:17)
[2017-11-13] MEDS: LIDOCAINE PATCH REMOVAL MC SCH (22:18)
[2017-11-14] MEDS: chlordiazePOXIDE 5 MG CAPSULE PO SCH ×3 (05:49→18:58)
[2017-11-14] MEDS: METHADONE HCL 5 MG TABLET PO SCH (05:50)
[2017-11-14] MEDS: ACETAMINOPHEN 325 MG TABLET (FP) PO PRN (05:54)
[2017-11-14] MEDS: ASPIRIN 81 MG CHEWABLE TABLETS PO SCH (10:26)
[2017-11-14] MEDS: PRENATAL VITAMINS W/ FOLIC ACID TABLET (FP) PO SCH (10:26)
[2017-11-14] MEDS: RANITIDINE HCL 150 MG TABLET (FP) PO SCH (10:26)
[2017-11-14] MEDS: FUROSEMIDE 20 MG TABLET (FP) PO SCH (10:26)
[2017-11-14] MEDS: NICOTINE 14 MG/24 HOURS TOPICAL PATCH TD SCH (10:27)
[2017-11-14] MEDS: LIDOCAINE 5% TOPICAL PATCH TP SCH (10:27)
[2017-11-14] MEDS: amLODIPine BESYLATE 2.5 MG TABLET (FP) PO SCH (10:30)
--- NOTE | 2017-11-14 10:30 | PN ---
[facility] Progress Note (SOAP) Subjective: SLIGHT ANXIETY AND IRRITABILITY. PT IS OOB AMBULATING BETTER TODAY FROM ROOM TO DAYROOM AND AROUND THE UNIT-SEEN WITHOUT HIS CANE. NAD. Objective: 11/14/17 10:28 Vital Signs 11/14/17 11/14/17 11/14/17 03:30 05:14 05:15 Temperature 97.8 F 97.8 F Pulse Rate 96 H 96 H Respiratory 18 18 18 Rate Blood Pressure 111/71 111/71 11/14/17 11/14/17 11/14/17 06:49 09:15 09:30 Temperature 97.8 F 98.8 F 98.8 F Pulse Rate 96 H 93 H 93 H Respiratory 18 20 20 Rate Blood Pressure 111/71 109/67 109/67 Laboratory Tests 11/12/17 11/12/17 00:40 06:00 Urine Color Annabelle Urine Appearance Clear Urine pH 6.0 Ur Specific [place] 1.008 Urine Protein Negative Urine Glucose (UA) Negative Urine Ketones Negative Urine Blood Negative Urine Nitrite Negative Urine Bilirubin Negative Urine Urobilinogen 4.0 e.u/dl Ur Leukocyte Esterase Negative RPR Titer Nonreactive Assessment: 11/14/17 10:29 WITHDRAWAL SX Plan: CONTINUE DETOX REMIND PT TO USE CANE FOR AMBULATION.
[2017-11-14 10:37] LABS: BASO % 0.8 % (0-2.0); EOS % 2.4 % (0-4.5); HEMATOCRIT 35.8 % (35.4-49); HEMOGLOBIN 12.1 GM/dL (11.7-16.9); MCH 35.3 pg (25.7-33.7); MCHC 33.7 g/dl (32.0-35.9); MEAN CELL VOLUME 104.8 fl (80-96); MEAN PLT VOLUME 10.2 fl (7.5-11.1); NEUT % 56.8 % (42.8-82.8); PLATELET COUNT 51 K/MM3 (134-434); RBC 3.41 M/mm3 (4.00-5.60); RDW 15.3 % (11.9-15.9); WHITE BLOOD COUNT 2.9 K/mm3 (4.0-10.0)
[2017-11-14 10:41] LABS: ALBUMIN 1.7 g/dl (3.4-5.0); ANION GAP 10 MMOL/L (8-16); BLOOD UREA NITROGEN 12 mg/dL (7-18); CALCIUM 7.5 mg/dL (8.5-10.1); CHLORIDE 105 mmol/L (98-107); CO2 25 mmol/L (21-32); CREATININE 0.5 mg/dL (0.7-1.3); GLUCOSE,RANDOM 103 mg/dL (74-106); POTASSIUM 3.7 mmol/L (3.5-5.1); SGPT/ALT 47 U/L (12-78); SODIUM 140 mmol/L (136-145)
[2017-11-14 10:43] LABS: ALK PHOS 117 U/L (45-117); BILIRUBIN,TOTAL 1.4 mg/dL (0.2-1.0); SGOT/AST 94 U/L (15-37); TOT PROT 5.4 g/dl (6.4-8.2)
--- NOTE | 2017-11-14 19:00 | PN ---
[facility] Progress Note Note: Was called to fall for evaluation of pt's fall. Pt was in shower room on arrival Vital Signs Temperature 98.1 F 11/14/17 18:31 Pulse Rate 91 H 11/14/17 18:31 Respiratory Rate 20 11/14/17 18:31 Blood Pressure 117/80 11/14/17 18:31 O2 Sat by Pulse Oximetry (%) Assisted back to room s/p had another fall, denies LOC nor hitting his head. On assessment, pt A & O x 3, no obvious deformity s/p fall, appears weak with diminished ROM to LE. Pt has generalized edema with abdomen very distended s/p cirrhosis. Pt will be sent to [facility] ED for post fall evaluation. Report given to MD Orozco. Pt verbalized understanding of plans
[2017-11-14] MEDS: THIAMINE HCL 100 MG TABLET (FP) PO SCH (23:41)
[2017-11-14] MEDS: chlordiazePOXIDE HCL 10 MG CAPSULE PO SCH (23:41)
[2017-11-14] MEDS: LIDOCAINE PATCH REMOVAL MC SCH (23:41)
[2017-11-15] MEDS: METHADONE HCL 5 MG TABLET PO SCH (06:35)
[2017-11-15] MEDS: chlordiazePOXIDE HCL 10 MG CAPSULE PO SCH ×2 (06:35→10:29)
[2017-11-15] MEDS: ACETAMINOPHEN 325 MG TABLET (FP) PO PRN (06:37)
[2017-11-15] MEDS: amLODIPine BESYLATE 2.5 MG TABLET (FP) PO SCH (09:34)
[2017-11-15] MEDS: PRENATAL VITAMINS W/ FOLIC ACID TABLET (FP) PO SCH (09:34)
[2017-11-15] MEDS: ASPIRIN 81 MG CHEWABLE TABLETS PO SCH (09:34)
[2017-11-15] MEDS: FUROSEMIDE 20 MG TABLET (FP) PO SCH (09:34)
[2017-11-15] MEDS: RANITIDINE HCL 150 MG TABLET (FP) PO SCH (09:34)
[2017-11-15] MEDS: LIDOCAINE 5% TOPICAL PATCH TP SCH (09:39)
[2017-11-15] MEDS: NICOTINE 14 MG/24 HOURS TOPICAL PATCH TD SCH (09:39)
[2017-11-15 11:15] VITALS: BP 126/86; PULSE 96; TEMP 97
--- NOTE | 2017-11-15 13:34 | DS ---
[facility] Detox Discharge Summary Admission Date: 11/11/17 Discharge Date: 11/15/17 - History Present History: Alcohol Dependence, Cocaine Dependence, MMTP Pertinent Past History: GERD HTN Cirrhosis of liver - Physical Exam Results Vital Signs: Vital Signs Temperature 97 F L 11/15/17 10:31 Pulse Rate 96 H 11/15/17 10:31 Respiratory Rate 18 11/15/17 10:31 Blood Pressure 126/86 11/15/17 10:31 O2 Sat by Pulse Oximetry (%) Pertinent Admission Physical Exam Findings: Withdrawal symptoms Laboratory Tests 11/12/17 11/12/17 11/14/17 00:40 06:00 08:00 WBC RBC Hgb Hct MCV MCH MCHC RDW Plt Count MPV Absolute Neuts (auto) Neutrophils % Lymphocytes % Monocytes % Eosinophils % Basophils % Nucleated RBC % Sodium 140 Potassium 3.7 Chloride 105 Carbon Dioxide 25 Anion Gap 10 BUN 12 Creatinine 0.5 L Creat Clearance w eGFR > 60 Random Glucose 103 D Calcium 7.5 L Total Bilirubin 1.4 H AST 94 H ALT 47 Alkaline Phosphatase 117 Total Protein 5.4 L Albumin 1.7 L Urine Color Annabelle Urine Appearance Clear Urine pH 6.0 Ur Specific [place] 1.008 Urine Protein Negative Urine Glucose (UA) Negative Urine Ketones Negative Urine Blood Negative Urine Nitrite Negative Urine Bilirubin Negative Urine Urobilinogen 4.0 e.u/dl Ur Leukocyte Esterase Negative RPR Titer Nonreactive 11/14/17 08:00 WBC 2.9 L RBC 3.41 L Hgb 12.1 Hct 35.8 MCV 104.8 H MCH 35.3 H MCHC 33.7 RDW 15.3 Plt Count 51 L MPV 10.2 Absolute Neuts (auto) 1.6 Neutrophils % 56.8 D Lymphocytes % 20.0 D Monocytes % 20.0 H Eosinophils % 2.4 D Basophils % 0.8 Nucleated RBC % 0 Sodium Potassium Chloride Carbon Dioxide Anion Gap BUN Creatinine Creat Clearance w eGFR Random Glucose Calcium Total Bilirubin AST ALT Alkaline Phosphatase Total Protein Albumin Urine Color Urine Appearance Urine pH Ur Specific [place] Urine Protein Urine Glucose (UA) Urine Ketones Urine Blood Urine Nitrite Urine Bilirubin Urine Urobilinogen Ur Leukocyte Esterase RPR Titer Labs reviewed - Treatment Hospital Course: Detox Protocol Followed, Detoxed Safely, Responded well, Discharged Condition Good - Medication Discharge Medications: Ambulatory Orders Amlodipine Besylate [Norvasc -] 2.5 mg PO DAILY 11/11/17 Cholecalciferol (Vitamin D3) [Vitamin D3 -] 0 unit PO DAILY 11/11/17 Folic Acid 1 mg PO DAILY 11/11/17 Methadone [Dolophine -] 15 mg PO DAILY 11/11/17 Multivitamin [Daily Multiple Vitamin] 1 each PO DAILY 11/11/17 Aspirin 1 tab PO DAILY 11/12/17 - Diagnosis (1) Alcohol dependence with withdrawal, uncomplicated Current Visit: Yes Status: Acute (2) Cirrhosis of liver Current Visit: Yes Status: Chronic Qualifiers: Hepatic cirrhosis type: alcoholic cirrhosis Ascites presence: unspecified Qualified Code(s): K70.30 - Alcoholic cirrhosis of liver without ascites (3) Cocaine dependence Current Visit: Yes Status: Chronic (4) Essential hypertension Current Visit: Yes Status: Chronic (5) GERD (gastroesophageal reflux disease) Current Visit: Yes Status: Chronic Qualifiers: Esophagitis presence: without esophagitis Qualified Code(s): K21.9 - Gastro -esophageal reflux disease without esophagitis (6) Methadone maintenance therapy patient Current Visit: Yes Status: Chronic (7) Nicotine dependence Current Visit: Yes Status: Chronic Qualifiers: Nicotine product type: cigarettes Substance use status: in withdrawal Qualified Code(s): F17.213 - Nicotine dependence, cigarettes, with withdrawal (8) Substance induced mood disorder Current Visit: Yes Status: Acute - AMA Did Patient Leave Against Medical Advice: No (Follow up with your PCP within 1 week)
== END 2017-11-15 14:26 | disposition home or self-care (01) | DRG 773 ==
LOC: YASAS 18:20 → Y3N 20:14
PROC: HZ2ZZZZ Detoxification Services for Substance Abuse Treatment (ICD-10-PCS; principal; 2017-11-11)
DX: F10.230 Alcohol dependence with withdrawal, uncomplicated (principal); F11.20 Opioid dependence, uncomplicated; F14.20 Cocaine dependence, uncomplicated; F17.213 Nicotine dependence, cigarettes, with withdrawal; F19.24 Other psychoactive substance dependence with psychoactive substance-induced mood disorder; I10 Essential (primary) hypertension; K70.31 Alcoholic cirrhosis of liver with ascites; K21.9 Gastro-esophageal reflux disease without esophagitis; D69.6 Thrombocytopenia, unspecified; R60.0 Localized edema; R26.89 Other abnormalities of gait and mobility; Z99.89 Dependence on other enabling machines and devices; M79.651 Pain in right thigh; M25.551 Pain in right hip; T84.84XA Pain due to internal orthopedic prosthetic devices, implants and grafts, initial encounter
CPT/HCPCS: 36415; 71046-TC-FY; 76942-TC; 80053; 81003; 82042; 82150; 82945; 83615; 83690; 84157; 85025; 85610; 86593; 87070; 87075; 87102; 87116; 87205; 87206; 87210; 88108; 89051; 93005; 93010; 99283-25